=== PATIENT | female | born 1940 | race Caucasian/White ===

== ENCOUNTER 2017-01-02 23:14 | Inpatient (IN) ==
[2017-01-03] MEDS ORDERED: *HR* HYDROmorphone (PF) 1 MG/ML SYRINGE IVP ONE (00:15)
[2017-01-03] MEDS ORDERED: Ondansetron 4 MG/2 ML VIAL IVP ONE (00:15)
--- NOTE | 2017-01-03 01:15 | Emergency Department Note ---
Disposition Clinical Impression: Generalized weakness, Hyponatremia, GEORGES (acute kidney injury) Fall Qualifiers: Encounter type: initial encounter Qualified Code(s): W19.XXXA - Unspecified fall, initial encounter Disposition: Admitted As Inpatient Condition: Fair Time of Disposition: 04:21 General Adult HPI - General Chief complaint: ED Neuro Symptoms/Deficit Stated complaint: clinching mouth, BLE leg pain, "feeling funny" Time Seen by Provider: 01/03/17 00:15 Source: EMS Mode of arrival: EMS Limitations: no limitations Nursing Notes Reviewed: Yes Vital Signs Reviewed: Yes - History of Present Illness HPI Narrative: Patient is a 76-year-old female who presents to [facility] ED with a chief complaint of fall. Son is present with her who states she fell earlier on in the day. She was able to ambulate afterwards but then started complaining of extreme left hip pain. Son states that she seems like she has been gradually more weak over this last several days. States she had been working with physical therapy outpatient and had been able to walk without difficulty last week. Now she has had more and more difficulty. Patient denies any chest pain. She was hyperventilating upon presentation to the emergency department. Was complaining of lots of left hip pain. Patient denies any loss of consciousness. States it was a mechanical fall as she was trying to get out of the bathroom and ran into the door. No loss of consciousness. Onset (ago): hour(s) Location: left, lower extremity Radiation: non-radiation Pain Severity: severe Pain Scale: 10 Quality: aching Consistency: constant Improves with: nothing Worsens with: nothing Associated symptoms: Reports: weakness. Denies: chest pain, cough, fever/chills , loss of appetite, nausea/vomiting, shortness of breath Treatments Prior to Arrival: none - Related Data Allergies Allergy/AdvReac Type Severity Reaction Status Date / Time pioglitazone [From [employer]] Allergy Cough Verified 01/02/17 23:41 All systems ED: reviewed and negative except as stated. Past Medical History - Past Medical History Attestation: Yes The following information was validated with the patient. Source: patient Medical history: Reports: atrial fibrillation, CHF, diabetes, hyperlipidemia, hypertension, myocardial infarction, thyroid disease - Social History Smoking Status: Never smoker Physical Exam - General Limitations: no limitations General appearance: alert - Head Head exam: atraumatic, normocephalic, normal inspection - Eye Eye exam: Present: normal appearance, PERRL, EOMI - ENT ENT exam: normal exam, normal oropharynx, mucous membranes moist - Neck Neck exam: Present: normal inspection, full ROM, trachea midline - Chest Chest inspection: Present: normal inspection, symmetric chest wall rise - Respiratory Respiratory exam: Present: normal lung sounds bilaterally - Cardiovascular Cardiovascular exam: Present: regular rate, normal rhythm, normal heart sounds - Abdominal Exam Abdominal exam: Present: soft, Non-Tender. Absent: tenderness, distention, guarding, rebound, rigidity - Expanded Upper Extremity Exam Forearm/Wrist exam: Present: other (Superficial skin tears on the left forearm) - Expanded Lower Extremity Exam Hip/Pelvis exam: Present: tenderness (L hip) Course Course Narrative: Patient seen and examined. Fall with generalized weakness. CT of the head and CT pelvis ordered. Lab work ordered. - Reevaluation(s) Reevaluation #1: Lab work shows some hyponatremia along with acute kidney injury. Patient's CT head shows chronic occipital lobe infarct. CT pelvis just osteoarthritis. We will admit for generalized weakness, hyponatremia, acute kidney injury. I spoke with hospitalist Dr. Anderson who has accepted patient for admission. Time: 04:19 Vital Signs Temperature 97.5 F L 01/02/17 23:20 Pulse Rate 105 01/02/17 23:20 Respiratory Rate 22 01/02/17 23:20 Blood Pressure 110/52 01/02/17 23:20 O2 Sat by Pulse Oximetry 96 01/02/17 23:20 Temperature 97.5 F L 01/02/17 23:20 Pulse Rate 87 01/03/17 02:22 Respiratory Rate 18 01/03/17 02:22 Blood Pressure 102/71 01/03/17 02:22 O2 Sat by Pulse Oximetry 96 01/03/17 02:22 Oxygen Delivery Oxygen Delivery Room Air Medical Decision Making - Medical Records Medical records reviewed: Yes I reviewed the patient's medical records. - Lab Data Lab results reviewed: Yes I reviewed the patient's lab results. Result diagrams: 01/03/17 01:51 01/03/17 01:51 Lab Results 01/02/17 01/03/17 01/03/17 Range/Units 23:31 01:51 01:51 WBC (4.3-11.1) K/mcL RBC (3.82-4.97) M/mcL Hgb (11.5-15.4) g/dL Hct (35.3-44.9) % MCV (83.0-100.0) fL MCH (28.0-33.3) pg MCHC (31.6-35.5) g/dL RDW (11.5-14.5) % Plt Count (140-400) K/mcL MPV (9.4-12.4) fL Immature Gran % (0-4) % Seg Neutrophils % % Lymphocytes % % Monocytes % % Eosinophils % % Basophils % % Neutrophils # (1.6-8.9) K/mcL Lymphocytes # (0.6-4.6) K/mcL Monocytes # (0.0-1.3) K/mcL Eosinophils # (0.0-0.6) K/mcL Basophils # (0.0-0.2) K/mcL Immature Plt Fraction (1.1-6.1) % Sodium (136-145) mEq/L Potassium (3.5-4.5) mEq/L Chloride (98-109) mEq/L Carbon Dioxide (19-29) mEq/L BUN (7-20) mg/dL Creatinine (0.57-1.11) mg/dL Est GFR ( Amer) (> 60) Est GFR (Non-Af Amer) (> 60) BUN/Creatinine Ratio (6-26) Glucose (70-99) mg/dL POC Glucose 354 H (58-89) Calculated Osmolality (280-300) Lactic Acid 1.6 (0.5-2.2) mmol/L Calcium (8.6-10.8) mg/dL Phosphorus 5.0 H (2.3-4.7) mg/dL Magnesium 2.3 (1.6-2.6) mg/dL Total Bilirubin (0.2-1.2) mg/dL AST (5-34) Units/L ALT (0-55) Units/L Alkaline Phosphatase (38-126) Units/L Creatine Kinase 121 (29-168) Units/L Troponin I (0-0.03) ng/mL Serum Total Protein (6.0-8.3) g/dL Albumin (3.5-5.0) g/dL Globulin (2.4-3.5) g/dL Albumin/Globulin Ratio (1.1-2.2) 01/03/17 01/03/17 01/03/17 Range/Units 01:51 01:51 01:51 WBC 5.6 D (4.3-11.1) K/mcL RBC 4.19 (3.82-4.97) M/mcL Hgb 11.4 L (11.5-15.4) g/dL Hct 34.6 L (35.3-44.9) % MCV 82.6 L (83.0-100.0) fL MCH 27.2 L (28.0-33.3) pg MCHC 32.9 (31.6-35.5) g/dL RDW 16.2 H (11.5-14.5) % Plt Count 216 (140-400) K/mcL MPV 10.2 (9.4-12.4) fL Immature Gran % 0.5 (0-4) % Seg Neutrophils % 80.8 % Lymphocytes % 8.8 % Monocytes % 9.5 % Eosinophils % 0.2 % Basophils % 0.2 % Neutrophils # 4.5 (1.6-8.9) K/mcL Lymphocytes # 0.5 L (0.6-4.6) K/mcL Monocytes # 0.5 (0.0-1.3) K/mcL Eosinophils # 0.0 (0.0-0.6) K/mcL Basophils # 0.0 (0.0-0.2) K/mcL Immature Plt Fraction 4.3 (1.1-6.1) % Sodium 125 L (136-145) mEq/L Potassium 5.3 H (3.5-4.5) mEq/L Chloride 87 L (98-109) mEq/L Carbon Dioxide 24 (19-29) mEq/L BUN 60 H (7-20) mg/dL Creatinine 3.06 H (0.57-1.11) mg/dL Est GFR ( Amer) 18 L (> 60) Est GFR (Non-Af Amer) 15 L (> 60) BUN/Creatinine Ratio 20 (6-26) Glucose 278 H (70-99) mg/dL POC Glucose (58-89) Calculated Osmolality 287 (280-300) Lactic Acid (0.5-2.2) mmol/L Calcium 9.4 (8.6-10.8) mg/dL Phosphorus (2.3-4.7) mg/dL Magnesium (1.6-2.6) mg/dL Total Bilirubin 1.5 H (0.2-1.2) mg/dL AST 90 H (5-34) Units/L ALT 80 H (0-55) Units/L Alkaline Phosphatase 127 H (38-126) Units/L Creatine Kinase (29-168) Units/L Troponin I 0.03 (0-0.03) ng/mL Serum Total Protein 6.2 (6.0-8.3) g/dL Albumin 3.1 L (3.5-5.0) g/dL Globulin 3.1 (2.4-3.5) g/dL Albumin/Globulin Ratio 1.0 L (1.1-2.2) - Radiology Data Radiology results reviewed: Yes I reviewed the patient's radiology results. Head CT 01/03/17 00:26 IMPRESSION: 1. No acute intracranial abnormality. 2. Chronic left cerebellar infarct. 3. Mild left mastoid air cell disease. D/ / Isaias Baugh MD / Isaias Buagh MD Interpreting Provider: Isaias Baugh MD Pelvis CT 01/03/17 00:26 IMPRESSION: 1. No acute fracture or dislocation of the bilateral hips or osseous pelvis. 2. Bilateral hip osteoarthritis, left greater than right. 3. Cholelithiasis. D/ / Isaias Baugh MD / Isaias Baugh MD Interpreting Provider: Isaias Baugh MD Chest X-Ray 01/03/17 01:41 IMPRESSION: No acute abnormality. D/ / Marv Colunga MD / Marv Colunga MD Interpreting Provider: Marv Colunga MD - EKG Data EKG #1 EKG attestation: Yes I reviewed and interpreted this EKG. EKG results narrative: EKG done at 2329 shows atrial fibrillation with a rate of [address] elevation or depression. Left posterior fascicular block. Appears unchanged from prior EKG done 09/09/2014 Attestation Statement - Attestation Attestation: I, Pillo Kaplan MD, personally performed a history and physical exam of the patient and discussed their management with the resident. I reviewed the resident's note and agree with the documented findings, medical decision making , and plan of care. 76-year-old female presents to the emergency department accompanied by her son. Son reports patient fell sometime earlier and since then has been complaining of left hip pain. He also complains that over the last several days she has had increasing generalized weakness and difficulty ambulating. She is apparently fallen several times. He thinks that she did hit her head. She is on Xarelto and Plavix. Patient is very hard of hearing and seems intermittently confused. On examination patient is a well-developed obese elderly female in no acute distress. She is alert. No cyanosis or diaphoresis. Breath sounds are equal bilaterally. Chest is nontender to palpation. Heart is irregularly irregular. Abdomen is soft with normal bowel sounds. No gross focal neurological deficits. 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 Labs reviewed. Head CT negative for acute bleed or traumatic injury. EKG shows atrial fibrillation which is chronic. The hospitalist, Dr. Anderson, was consulted and accepted admission of the patient.
[2017-01-03 01:57] LABS: Basophils % 0.2 %; Eosinophils % 0.2 %; Hematocrit 34.6 % (35.3-44.9); Hemoglobin 11.4 g/dL (11.5-15.4); Immature Granulocytes % 0.5 % (0-4); Immature Platelets 4.3 % (1.1-6.1); Lymphocytes # 0.5 K/mcL (0.6-4.6); Lymphocytes % 8.8 %; Mean Corpuscular HGB Conc 32.9 g/dL (31.6-35.5); Mean Corpuscular Hemoglobin 27.2 pg (28.0-33.3); Mean Corpuscular Volume 82.6 fL (83.0-100.0); Mean Platelet Volume 10.2 fL (9.4-12.4); Monocytes # 0.5 K/mcL (0.0-1.3); Monocytes % 9.5 %; Neutrophils # 4.5 K/mcL (1.6-8.9); Platelet Count 216 K/mcL (140-400); Red Blood Count 4.19 M/mcL (3.82-4.97); Red Cell Distribution Width 16.2 % (11.5-14.5); Segmented Neutrophils % 80.8 %
[2017-01-03 02:10] LABS: Albumin 3.1 g/dL (3.5-5.0); Bilirubin,Total 1.5 mg/dL (0.2-1.2); Calcium 9.4 mg/dL (8.6-10.8); Globulin 3.1 g/dL (2.4-3.5); Magnesium 2.3 mg/dL (1.6-2.6); Potassium 5.3 mEq/L (3.5-4.5); Total Protein 6.2 g/dL (6.0-8.3)
[2017-01-03] MEDS ORDERED: 0.9 % Sodium Chloride 1,000 ML IVC ONE ×2 (03:48→04:40)
--- NOTE | 2017-01-03 04:48 | Internal Med History&Physical ---
Date of Encounter: 01/03/17 Time of Encounter: 04:41 Assessment and Plan (1) GEORGES (acute kidney injury) Current visit: Yes Status: Acute Patient with underlying type 2 diabetes, admitted with acute kidney injury. Patient with underlying CKD. Baseline GFR is around 29-28. Upon admission her GFR is 16. Etiology likely multifactorial, patient with dehydration, poor oral intake who was recently discharged from another facility and has received diuretic therapy. A week ago her potassium level was 3.1. She was receiving potassium as outpatient. Will give IV fluids, monitor input and output. Juarez catheter. Avoid nephrotoxic agents. Hold diuretics for now. We will obtain a consultation with nephrology for further recommendation. The patient follows up as outpatient with Dr. Montiel. (2) Uncontrolled diabetes mellitus Current visit: Yes Status: Acute Uncontrolled diabetes. We will continue with insulin therapy. Hold by mouth medications. Check hemoglobin A1c. Monitor fingerstick. 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 We will give 1 dose of Kayexalate. Monitor electrolytes. Avoid nephrotoxic agents. Telemetry monitoring. (4) Coronary artery disease Current visit: Yes Status: Acute Qualifiers: Coronary Disease-Associated Artery/Lesion type: bypass graft Knik vs. transplanted heart: hoopa heart Associated angina: without angina Qualified Code(s): I25.810 - Atherosclerosis of coronary artery bypass graft(s) without angina pectoris (5) Congestive heart failure Current visit: Yes Status: Acute I could not find documentation about the severity of her heart failure. She follows at [place]. Obtain echo for further evaluation. Qualifiers: Congestive heart failure type: combined Congestive heart failure chronicity : chronic Qualified Code(s): I50.42 - Chronic combined systolic (congestive) and diastolic (congestive) heart failure (6) Atrial fibrillation Current visit: Yes Status: Acute On anticoagulation with xarelto at home. Monitor in telemetry. Rate control meds. Qualifiers: Atrial fibrillation type: chronic Qualified Code(s): I48.2 - Chronic atrial fibrillation (7) Generalized weakness Current visit: Yes Status: Acute PT eval. (8) Hyponatremia Current visit: Yes Status: Acute Internal Medicine - H&P: HPI Chief complaint: Generalized weakness Admitted From: Emergency Dept Plans for Post Hospital Care: Transfer Care Home Facility History of present illness: Ms. Cox is a 76 year old female with past medical history of atrial fibrillation on anticoagulation, type 2 diabetes, hypertension, coronary artery disease status post CABG, hypothyroidism, chronic kidney disease, secondary hyperparathyroidism, status post permanent pacemaker placement, multiple strokes. Patient presented to our emergency department after she sustained a fall. The patient's son states that the patient had a fall yesterday morning. She was complaining of left hip pain and generalized weakness. Patient States the Patient Has Been Feeling Weak in the Last Couple of Days, Has Been Drowsy, Sleeping More Than Usual. Patient Denies Fever, Shortness of Breath, Dysuria, Diarrhea, Loss of Consciousness. She Is Complaining of Productive Cough. Of Note, the Patient Was Hospitalized at [facility], She Was Discharged 2 Weeks Ago. Patient's Admission to [facility] Was due to Fluid Overload, She Had Severe Swelling in Both Lower Extremities and Responded Well to Diuretic Therapy. Upon discharge her diuretic therapy was switched from Lasix to Bumex and she was prescribed potassium. Upon Admission to our Emergency Department Her Blood Pressure Was 110/62, Temperature Was 97.5, Heart Rate Was 105, Respiratory Rate Was 22, A Few Blood Pressure Was 96%. Initial blood work revealed a hemoglobin of 11.4, hematocrit 24.6, WBC count 5.6, platelet count 216,000. Sodium 135, potassium 5.3, chloride 87, carbonate 24, BUNs 60, creatinine 3.06, glucose 278. Troponin was 0.03. Chest x-ray was unremarkable. Head CT was also unremarkable without acute findings. A head heat CT did rule out fractures, however it revealed bilateral arthritis (more in the left). The patient received a dose of IV fluids in the ER along with Zofran and Dilaudid. She was admitted for further management and workup. Past Med Surg Social Fam HX - Past Medical History Medical history: atrial fibrillation, CHF, diabetes, hyperlipidemia, hypertension, myocardial infarction, thyroid disease - Past Surgical History Surgical History: coronary bypass (CABG) - Social History Smoking Status: Never smoker Internal Medicine - H&P: Meds Allergies pioglitazone [From Actos] Allergy (Verified 01/02/17 23:41) Cough All Systems PM: A 10-system review of systems was performed and is negative for pertinent findings except as documented above in the HPI. - Constitutional Constitutional: as per HPI, anorexia, falls, lethargy, malaise, weakness, no chills, no fever(s), no night sweats - EENT Eyes: as per HPI, no change in vision, no discharge, no pain, no photophobia Ears: as per HPI, no ear discharge, no ear pain, no tinnitus Nose, mouth and throat: as per HPI, no dysphagia, no nasal discharge, no neck pain, no sore throat - Breasts Breasts: as per HPI - Cardiovascular Cardiovascular ROS IM: as per HPI, edema, no chest pain, no diaphoresis, no dyspnea, no lightheadedness, no palpitations, no syncope - Respiratory Respiratory: as per HPI, cough, no dyspnea, no wheezing, no excessive phlegm production - Gastrointestinal Gastrointestinal: as per HPI, no abdominal pain, no diarrhea, no hematemesis, no hematochezia, no melena, no nausea, no vomiting - Genitourinary Genitourinary: as per HPI, no change in urinary stream, no dysuria, no flank pain, no hematuria Menstruation: as per HPI - Musculoskeletal Musculoskeletal ROS IM: as per HPI, arthralgias, limited range of motion, no numbness, no tingling - Integumentary Integumentary IM: as per HPI, no rash, no unusual bruising - Neurological Neurological ROS: as per HPI, no confusion, no convulsions, no focal weakness, no numbness, no tingling, no tremor(s) - Psychiatric Psychiatric: as per HPI - Endocrine Endocrine IM: as per HPI - Hematologic/Lymphatic Hematologic/Lymphatic: as per HPI, no easy bruising - Allergic/Immunologic Allergic/Immunologic: as per HPI - Constitutional Vitals: Temp Pulse Resp BP Pulse Ox 97.5 F L 100 18 128/90 97 01/02/17 23:20 01/03/17 04:38 01/03/17 04:38 01/03/17 04:38 01/03/17 04:38 General appearance: Present: cooperative, A&O X 2, mild distress Exam: Obese patient, dry mucous membranes, breathing with a nasal cannula, excoriation in the left wrist - Head Head exam: Present: atraumatic, normocephalic - Eye Eye exam: Present: PERRL, conjuntiva pink, sclera anicteric Pupils: Present: PERRL - Neck Neck exam general surgery: Present: supple, trachea midline. Absent: lymphadenopathy - Respiratory Respiratory exam: Present: decreased breath sounds. Absent: accessory muscle use, rales, rhonchi, wheezes - Cardiovascular Cardiovascular exam: Present: RRR, +S1, +S2. Absent: diastolic murmur, gallop, rubs, systolic murmur - GI/Abdominal GI/Abdominal exam: Present: normal bowel sounds, soft, no peritoneal signs. Absent: distended, tenderness - Extremities Exam Extremities exam: Present: pedal edema, warm, radial pulses palpable and symetrical. Absent: calf tenderness, cyanotic - Neurological Exam Neurological exam: Present: CN II-XII intact, oriented X3, no focal deficits. Absent: pronater drift, facial droop, speech deficit - Skin Skin exam: Present: dry, intact Internal Med - H&P Results - Labs CBC & Chem 7: 01/03/17 01:51 01/03/17 01:51
[2017-01-03] MEDS ORDERED: D5% in Water 1,000 ML IVC PRN (05:05)
[2017-01-03] MEDS ORDERED: Ondansetron 4 MG/2 ML VIAL IVP PRN (05:05)
[2017-01-03] MEDS ORDERED: Naloxone 0.4 MG/ML INJ IVP PRN (05:05)
[2017-01-03] MEDS ORDERED: Acetaminophen 325 MG TABLET PO PRN (05:05)
[2017-01-03] MEDS ORDERED: Dextrose Gel 15 GM PO PRN ×2 (05:05)
[2017-01-03 05:53] LABS: Hemoglobin A1C 8.6 %
[2017-01-03 09:33] LABS: Bilirubin,Urine Small (Negative); Blood,Urine Negative (Negative); Clarity,Urine Clear (Clear); Color,Urine Dark Yellow (Yellow); Glucose,Urine (UA) Normal (Normal); Ketones,Urine Negative (Negative); Leukocyte Esterase,Urine Small (Negative); Nitrite,Urine Negative (Negative); Protein,Urine Trace mg/dL (Neg-Trace); Specific Gravity,Urine 1.016 (1.010-1.025); Urobilinogen,Urine Normal (Normal)
[2017-01-03 09:35] LABS: Bacteria,Urine None Seen per hpf (None-Few); RBC,Urine 0-3 per hpf (0-3); Squamous Epithelial Cell,Urine Many per lpf (None-Few)
[2017-01-03 09:40] LABS: Amphetamine Screen,Urine Negative ng/mL (Cutoff=1000); Barbiturate Screen,Urine Negative ng/mL (Cutoff=200); Benzodiazepines Screen,Urine Negative ng/mL (Cutoff=200); Cannabinoid Screen,Urine Negative ng/mL (Cutoff = 50); Cocaine Screen,Urine Negative ng/mL (Cutoff= 300); Creatinine,Urine 69 mg/dL; Microalbum/Creatinine Ratio,Ur 72 (0-30); Microalbumin,Urine 50 mg/L; Opiate Screen,Urine Negative ng/mL (Cutoff=300); Phencyclidine Screen,Urine Negative ng/mL (Cutoff=25)
[2017-01-03 09:41] LABS: Sodium, Urine < 20.0 mEq/L
[2017-01-03] MEDS: Ranolazine 500 MG TAB.ER.12H PO SCH ×2 (09:42→20:46)
[2017-01-03] MEDS: Isosorbide MONOnitrate (24 HR) 30 MG TAB.ER.24H PO SCH (09:43)
[2017-01-03] MEDS: 0.9 % Sodium Chloride 1,000 ML IVC SCH (09:43)
[2017-01-03 09:50] LABS: Hepatitis B Surface Antigen Nonreactive (Nonreactive)
[2017-01-03] MEDS: Insulin LISPRO 300 UNITS/3 ML VIAL SQ SCH ×4 (09:51→20:44)
[2017-01-03 09:53] LABS: Hyaline Casts,Urine Few per lpf (None-Few)
[2017-01-03] MEDS: *HR* Morphine 2 MG/ML SYRINGE IVP PRN (10:58)
[2017-01-03 11:03] LABS: Osmolality,Urine 322 mOsm/kg (300-1090)
--- NOTE | 2017-01-03 11:32 | Nephrology Consult Note ---
<Arianne Oconnor - Last Filed: 01/03/17 12:39> Date of Encounter: 01/03/17 Time of Encounter: 11:25 Assessment and Plan (1) GEORGES (acute kidney injury) Current Visit: Yes Status: Acute GEORGES workup will include: UA, urine culture, urine creatinine, serum uric acid, renal ultrasound. Agree with IV fluid hydration Agree with holding diuretics Avoid nephrotoxins if possible. 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 Cox is a 76 year old female with past medical history of atrial fibrillation on anticoagulation, type 2 diabetes, hypertension, coronary artery disease status post CABG, hypothyroidism, chronic kidney disease, secondary hyperparathyroidism, status post permanent pacemaker placement, multiple strokes. Patient presented to our emergency department after she sustained a fall. She was complaining of left hip pain and generalized weakness. Patient States the Patient Has Been Feeling Weak in the Last Couple of Days, Has Been Drowsy, Sleeping More Than Usual. Patient was discharged from [facility] weeks ago for fluid overload and severe swelling in BLL which responded well to diuretic therapy. Upon discharge her diuretic therapy was switched from Lasix to Bumex and she was prescribed potassium. Chest x-ray was unremarkable. Diuretic and K+ supplement has been held. Speaking with the adult children they states she was unaware of any kidney disease nor has she ever seen a kidney doctor. When patient returns from having echo she tells me she was suppose to see a Dr David next week for her kidney disease. Patient's mother had some type of kidney problem but details are unknown. Nephrology has been consulted to manage her GEORGES on CKD stage 4. Review of old labs show a baseline GFR of 28-29. Past Med Surg Social Fam HX - Past Medical History Medical history: atrial fibrillation, CHF, diabetes, hyperlipidemia, hypertension, myocardial infarction, thyroid disease Psychiatric history: no psych history - Past Surgical History Surgical History: angioplasty/stent, coronary bypass (CABG), pacemaker/AICD - Social History Smoking Status: Never smoker Smokeless Tobacco Status: No Alcohol use: none Drug use: none - Family History Mother Hx Family Endocrine Disorder: Yes (DIABETES MELLITUS.) Medications and Allergies Bumetanide [Bumex] 1 mg PO BID 01/03/17 [History] Calcitriol [Rocaltrol] 0.25 mcg PO DAILY 01/03/17 [History] Carvedilol [Coreg] 25 mg PO BID 01/03/17 [History] Clopidogrel [Plavix] 75 mg PO DAILY 01/03/17 [History] Furosemide [Lasix] 40 mg PO BID 01/03/17 [History] Glimepiride [Amaryl] 2 mg PO 0800 01/03/17 [History] Insulin ASPART [Novolog] 1 unit SQ QID 01/03/17 [History] Isosorbide MONOnitrate [Isosorbide Mononitrate] 30 mg PO DAILY 01/03/17 [History ] Levothyroxine [Synthroid] 125 mcg PO DAILY 01/03/17 [History] Losartan Potassium [Cozaar] 50 mg PO DAILY 01/03/17 [History] Nitroglycerin [Nitrostat] 0.4 mg SL PRN PRN 01/03/17 [History] Potassium Chloride [Klor-Con] 25 meq PO BID 01/03/17 [History] Ranolazine [Ranexa] 1,000 mg PO BID 01/03/17 [History] Rivaroxaban [Xarelto] 15 mg PO DAILY 01/03/17 [History] Rosuvastatin [Crestor] 20 mg PO DAILY 01/03/17 [History] Allergies pioglitazone [From Actos] Allergy (Verified 01/03/17 08:16) Cough Review of Systems All Systems: reviewed and no additional remarkable complaints except as stated Constitutional: fatigue, lethargy, malaise, no fever(s) Cardiovascular: edema, leg edema, no chest pain, no dyspnea Respiratory: no cough, no dyspnea Gastrointestinal: no diarrhea, no nausea, no vomiting Musculoskeletal: left: hip pain Neurological: weakness, no behavioral changes Exam - Vital Signs Vital signs: Initial Vital Signs Temp Pulse Resp BP Pulse Ox 97.5 F L 105 22 110/52 96 01/02/17 23:20 01/02/17 23:20 01/02/17 23:20 01/02/17 23:20 01/02/17 23:20 Vital Signs - Last 8 Hours Temp Pulse Resp BP Pulse Ox 01/03/17 06:12 96.1 F L 98 16 100/64 100 01/03/17 04:53 18 128/90 01/03/17 04:38 100 18 128/90 97 Intake and Output 01/02/17 01/03/17 01/03/17 23:59 07:59 15:59 Intake Total 1000 / 1000 Output Total 300 / 300 Balance 1000 / 1000 -300 / -300 Intake: IV Fluids 1000 / 1000 0.9 % Sodium Chloride 1, 1000 / 1000 000 ML @ 3750 mls/hr IVC .Q16M ONE Rx#:[id number] Output: Urine 300 / 300 Urethral (Juarez) 300 / 300 Other: Blood Glucose* 289 - General Appearance General appearance: well-developed, well-nourished, obese EENT: ATNC, mucous membranes moist, vision intact Neck: supple Respiratory: clear (decreased) Cardiology: edema, normal S1, normal S2 Gastrointestinal: no tenderness, no guarding, obese Integumentary: warm and dry Neurologic: alert and oriented x3 Psychiatric: mood/affect appropriate, cooperative Results - Lab Results 01/03/17 01:51 01/03/17 01:51 Most recent lab results Calcium 9.4 mg/dL (8.6-10.8) 01/03/17 01:51 Phosphorus 5.0 mg/dL (2.3-4.7) H 01/03/17 01:51 Magnesium 2.3 mg/dL (1.6-2.6) 01/03/17 01:51 Urine Creatinine 69 mg/dL 01/03/17 09:12 Urine Sodium < 20.0 mEq/L 01/03/17 09:12 Consult Discharge Plan - Plan Referrals: Gianna Rendon, CHARLINE [Primary Care Provider] - 01/11/17 1:30 pm () <Haley Youssef - Last Filed: 01/03/17 16:26> Date of Encounter: 01/03/17 Exam - Vital Signs Vital signs: Initial Vital Signs Temp Pulse Resp BP Pulse Ox 97.5 F L 105 22 110/52 96 01/02/17 23:20 01/02/17 23:20 01/02/17 23:20 01/02/17 23:20 01/02/17 23:20 Vital Signs - Last 8 Hours Temp Pulse Resp BP Pulse Ox 01/03/17 15:19 97.9 F 99 17 101/70 99 01/03/17 12:39 97.6 F 88 18 92/55 97 Intake and Output 01/03/17 01/03/17 01/03/17 07:59 15:59 23:59 Intake Total 1000 / 1000 240 / 240 Output Total 300 / 300 Balance 1000 / 1000 -60 / -60 Intake: IV Fluids 1000 / 1000 0.9 % Sodium Chloride 1, 1000 / 1000 000 ML @ 3750 mls/hr IVC .Q16M ONE Rx#:[id number] Oral 240 / 240 Output: Urine 300 / 300 Urethral (Juarez) 300 / 300 Other: Meal Lunch Percent of Meal Consumed 50% Blood Glucose* 213 Results - Lab Results 01/03/17 01:51 01/03/17 01:51 Most recent lab results Calcium 9.4 mg/dL (8.6-10.8) 01/03/17 01:51 Phosphorus 5.0 mg/dL (2.3-4.7) H 01/03/17 01:51 Magnesium 2.3 mg/dL (1.6-2.6) 01/03/17 01:51 Urine Creatinine 69 mg/dL 01/03/17 09:12 Urine Sodium < 20.0 mEq/L 01/03/17 09:12 - Attending Attestation I examined this patient and my medical decision-making was reviewed with the FARM OPERATOR/PA/Advanced Practice Nurse/Resident Physician. I agree with the documented findings, disposition and treatment plan as described except to the extent set forth below. In brief, 76 y o female with pMH of Stage 4 CKD admitted with nausea and vomiting while on diuretics and found with SCr worsening at 3.06, GFR 15, previously 1.82, GFR 27 as of the of this month. Potassium noted elevated along with low sodium. Agree with volume repletion and will initiate workup regarding both GEORGES and CKD with US kidney, urine for proteinuria etc. Avoid nephrotoxins if possible. 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
--- NOTE | 2017-01-03 12:56 | Internal Med Progress Note ---
Date of Encounter: 01/03/17 Time of Encounter: 09:00 - Assessment and plan (1) Fall Current Visit: Yes Status: Acute Assessment and plan: Patient had mechanical fall at home last night. She says that she tripped coming out of her bathroom. She says that she hit her foot on the door frame causing her to fall. Her son says that she has physical therapy at home, and is to use a walker. Patient carries a walker while she is walking instead of using it properly. Patient reports hip pain after fall. The pain is not new. She has had chronic hip pain "for years" per her son, and he states that ambulation has become increasingly difficult for her over the last week or so. Patient had a head CT scan is negative for any intracranial abnormality. 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 Her hip x-rays bilaterally are negative for fracture or dislocation. She does have osteoarthritis however in both hips. Family is aware of this. Pain control PT/OT Ambulate with assistance Fall precautions Qualifiers: Encounter type: initial encounter Qualified Code(s): W19.XXXA - Unspecified fall, initial encounter (2) Hyponatremia Current Visit: Yes Status: Acute Assessment and plan: Patient has history of hyponatremia per prior trends. Initially sodium was 125. Patient is receiving IV fluids. We will continue to monitor. This could be contributory to fall and weakness. Monitor labs Monitor patient IV fluids 0.9 normal saline gentle hydration at 75 ML's per hour (3) Hyperkalemia Current Visit: Yes Status: Acute Assessment and plan: Potassium today is 5.3. She has a history of hyperkalemia. We are also monitoring the sodium. We will continue to monitor. (4) Uncontrolled diabetes mellitus Current Visit: Yes Status: Acute Assessment and plan: A1c is 8.6%, patient is hyperglycemic since admission. 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 fib. Severely dilated right and left atria. Patient denies cough. Her lung sounds are diminished. She has minimal edema to bilateral lower extremities. Continue her home medications and monitor her throughout her stay. She normally follows at [facility] needs. Qualifiers: Congestive heart failure type: combined Congestive heart failure chronicity : chronic Qualified Code(s): I50.42 - Chronic combined systolic (congestive) and diastolic (congestive) heart failure (6) Atrial fibrillation Current Visit: Yes Status: Chronic Assessment and plan: Patient is on Xarelto at home. Continue. Telemetry Rate controlled and will continue to monitor. Qualifiers: Atrial fibrillation type: chronic Qualified Code(s): I48.2 - Chronic atrial fibrillation (7) CKD (chronic kidney disease), stage IV Current Visit: Yes Status: Acute Assessment and plan: Pt and daughter both deny knowledge of renal disease. She has been seen by nephrology here. Pt also has GEORGES on chronic renal. Pt is baseline GFR of 23-29, 15 today with creatinine of 3.06. Nephrology on board Avoid nephrotoxins Avoid NSAIDS Monitor labs. - Time Spent With Patient 25 - 35 minutes (I have been into the room several times at the request of multiple family members.) - Subjective Interval history: Patient was evaluated this morning. She has multiple family members in her room. Daughter states that patient has called all of her children in. When I saw the patient this morning she denied any pain and was resting comfortably. She denied pain in either of her hips. She denies abdominal pain, nausea, vomiting. She denies headache. She says that she fell at home tripped over her doorway, and fell in her hallway. She still maintains that she was not dizzy and did not have chest pain at the time of the fall. Patient and family all deny knowledge of any renal disease, she has been evaluated by nephrology. Pt has been getting PT at home, and son who lives with her states that she has been declining over the last few days. Will continue PT here. Daughter initially refused to have social work specialist on board for home health, she says she will do it all. Her son, who is also her POA, says that they would welcome the help during the days. - Constitutional Vitals: Temp Pulse Resp BP Pulse Ox 97.6 F 88 18 92/55 97 01/03/17 12:39 01/03/17 12:39 01/03/17 12:39 01/03/17 12:39 01/03/17 12:39 General appearance: Present: cooperative, A&O X 3, pleasant, answers questions appropriately Exam: Patient is hard of hearing - Head Head exam: Present: normal inspection - Eye Eye exam: Present: normal appearance, conjuntiva pink - ENT ENT exam: Present: mucous membranes moist, normal exam - Neck Neck exam general surgery: Present: normal inspection. Absent: lymphadenopathy , tenderness - Respiratory Respiratory exam: Present: CTAB. Absent: chest wall tenderness, decreased breath sounds, respiratory distress, rhonchi, stridor, wheezes, tachypnea - Cardiovascular Cardiovascular exam: Present: RRR, +S1, +S2. Absent: diastolic murmur, systolic murmur - GI/Abdominal GI/Abdominal exam: Present: normal bowel sounds, soft. Absent: hepatomegaly, tenderness - Extremities Exam Extremities exam: Present: normal capillary refill, normal inspection, warm, radial pulses palpable and symetrical. Absent: mottling, pedal edema, tenderness Internal Medicine: Result - Labs CBC & Chem 7: 01/03/17 01:51 01/03/17 01:51 Labs: Urine 01/03/17 Range/Units 09:12 Urine Color Dark Yellow (Yellow) Urine Clarity Clear (Clear) Urine pH 6.0 (5.0-8.0) pH Units Ur Specific [place] 1.016 (1.010-1.025) Urine Protein Trace (Neg-Trace) mg/dL Urine Glucose (UA) Normal (Normal) mg/dL Consult Discharge Plan - Plan Referrals: Gianna Rendon, TONGUE AND GROOVE MACHINE OPERATOR [Primary Care Provider] - (We have requested a follow up appointment with Gianna Rendon. The office will call you at home with an appointment date and time. )
--- NOTE | 2017-01-03 12:57 | ECHO - Doppler Report ---
Echocardiogram Name: Angelina Cox Date of Study: 01/03/2017 Date: 1940 Ht: 62.0 in Medical Record#: [id number] Age: 76 Wt: 205.0 lb Gender: Female BSA: 1.93 Order #: [id number] Location: [facility] Room #: 3B13 Reading Physician: Sukh Rojas MD, [facility] [employer] Scientific Aid: Jose Guadalupe Cox RN Ordering Physician: Estuardo Miller MD Primary Physician: Gianna Rendon CNP Indications: LVF Assessment Impressions: Moderately dilated left ventricle. Severe LV systolic dysfunction, LVEF 25-30%. There is global LV hypokinesis. Indeterminate diastolic function due to atrial fibrillation. Mildly dilated right ventricle with mild RV hypokinesis. A device lead was visualized in the right atrium and right ventricle. Severely dilated left atrium. Severely dilated right atrium. Mild aortic regurgitation. Mildly calcified mitral valve leaflets. There is restricted motion of the posterior mitral valve leaflet. Severe mitral regurgitation. Mild tricuspid regurgitation. Mild pulmonary hypertension. Estimated RVSP = 44 mmHg. Recommend cardiology consultation. Left Ventricular Wall Motion: Rest Echo Findings The apex, apical inferior, mid inferior, basal inferior, apical anterior, mid anterior, basal anterior, apical septal, mid inferior septal, basal inferior septal, apical lateral, mid anterior lateral, basal anterior lateral, mid anterior septal, mid inferior lateral, basal anterior septal and basal inferior lateral caban were hypokinetic. Findings: Study Quality * Technically adequate exam. ECG Findings * Atrial fibrillation. Left Ventricle * Moderately dilated left ventricle. * Severe LV systolic dysfunction, LVEF 25-30%. There is global LV hypokinesis. * Normal LV chamber size and wall thickness. * Indeterminate diastolic function due to atrial fibrillation. Right Ventricle * Mildly dilated right ventricle with mild RV hypokinesis. Device lead * A device lead was visualized in the right atrium and right ventricle. Left Atrium * Severely dilated left atrium. Right Atrium * Severely dilated right atrium. Aorta * Normally sized aortic root. Pericardium * There is no pericardial effusion present. IVC * The IVC is dilated. * < 50% respiratory change. Aortic Valve * Trileaflet aortic valve with moderately thickened/calcified leaflets. * No aortic stenosis. * Mild aortic regurgitation. Mitral Valve * Mildly calcified mitral valve leaflets. There is restricted motion of the posterior mitral valve leaflet. * No mitral stenosis. * Severe mitral regurgitation. Tricuspid Valve * Normal tricuspid valve structure. * No tricuspid stenosis. * Mild tricuspid regurgitation. * Mild pulmonary hypertension. Estimated RVSP = 44 mmHg. Pulmonic Valve * Pulmonic valve not well visualized. * No pulmonic stenosis. * No pulmonic regurgitation. History Hypertension Diabetes Hypercholesteremia Family History of CAD History of CAD/PTCA Coronary Artery Bypass Graft Congestive Heart Failure Pacer/ICD Implant 08/26/2014 a Previous Echo was performed. Measurements: BP: 100/ 64 2D Normal Values IVSd: .90 cm 0.6 - 1.0 cm LVIDd: 5.80 cm 3.7 - 5.6 cm LVPWd: 1.00 cm 0.6 - 1.1 cm LVIDs: 5.10 cm 1.5 - 3.6 cm AO: 3.30 cm < 4.0 cm %FS: 15.10 cm >25 % LA volume: 146 Mitral Valve Peak E:1.10 m/sec Peak E' Lat Robby:8.38 cm/s Peak E' Med Robby:3.8 cm/s E/E' Lat Ratio:13.1 E/E' Med Ratio:28.9 Tricuspid Valve TV Regurg Peak Grad: 29.00mmHg TV Regurg Peak Robby: 2.70m/sec Updated by Sukh Rojas MD, [facility] on 01/03/2017 12:51:51 PM electronically signed on 01/03/2017 12:52:46 PM with status of Final Wall Motion Ni: 1=Normal, 2=Hypokinesis, 3=Akinesis, 4=Dyskinesis, 5=Aneurysmal, 6=Hyperkinetic, X=Not Visualized (Blank)=Missing
--- NOTE | 2017-01-03 14:07 | Cardiology Consult Note ---
<Urban Lara R - Last Filed: 01/03/17 14:20> Date of Encounter: 01/03/17 Time of Encounter: 13:56 Assessment and Plan (1) Severe mitral regurgitation Current Visit: Yes Status: Acute Echo obtained during this admission shows moderately dilated LV, severe LV systolic dysfunction EF 25-30%, global LV hypokinesis. Mildly dilated RV with mild RV hypokinesis. Severely dilated left and right atrium. Mild AR, mildly calcified MV leaflets. Restricted motion of posterior MV leaflet. Severe MR. Mild TR, mild phtn. RVSP 44mmHg. MR ischemic appearing in nature. Known severe CAD with only 1/5 patent bypass grafts. Most recent LHC at [facility] was 12/2014. They were unable to cross GEOPHYSICAL DRAFTER of RCA. Currently with GEORGES. Near euvolemic on exam. Would recommend rechecking echo after GEORGES resolves/improves. If still severe MR, would recommend repeat LHC to see if there is any intervention that could be done to improve MR. Do not recommend proceeding with LHC at this time due to GEORGES with risk of contrast induced nephropathy requiring dialysis. Pt and family agree to this. They also wish to have any necessary invasive cardiac procedures done at [facility] with established security test engineer Dr. Gipson. Pt denies chest pain or dyspnea. Cardiology will sign off. Reconsult PRN. Recommend follow-up with Dr. Gipson in 1- 2 weeks after discharge. (2) Ischemic cardiomyopathy Current Visit: Yes Status: Acute EF known 25-30% with significant CAD 1/5 patent bypass grafts. EF has persistently been <35% for years despite being on BB and ARB. ARB currently on hold due to GEORGES on CKD. Would recommend consideration of upgrading device to ICD. Defer to established security test engineer Dr. Gipson. (3) Coronary artery disease Current Visit: Yes Status: Chronic Plavix, BB, Statin. No ASA because she is usually on Plavix and on Xarelto for A -Fib. Qualifiers: Coronary Disease-Associated Artery/Lesion type: bypass graft [place] vs. transplanted heart: [place] heart Associated angina: without angina Qualified Code(s): I25.810 - Atherosclerosis of coronary artery bypass graft(s) without angina pectoris (4) Congestive heart failure Current Visit: Yes Status: Chronic Known EF 25-30%. No fluid overload on exam. CXR negative. Holding diuretics in setting of GEORGES from suspected dehydration and diuretic use. Cautious IV hydration with close assessment to avoid fluid volume overload with known reduced EF. Qualifiers: Congestive heart failure type: combined Congestive heart failure chronicity : chronic Qualified Code(s): I50.42 - Chronic combined systolic (congestive) and diastolic (congestive) heart failure (5) Atrial fibrillation Current Visit: Yes Status: Chronic Rate controlled on BB--24 hour tele AVG HR 98. Previously anticoagulated on Xarelto. Currently on hold due to GEORGES with creatinine 3.06. Baseline creatinine 1.3-1.8, mid range of her usual creatinine clearance is 46. Current creatinine clearance 22. If renal function improves/returns to baseline, okay to resume Xarelto. If Creatinine clearance remains <30, would recommend Coumadin for anticoagulation. Start DVT prophylaxis SQ heparin. Qualifiers: Atrial fibrillation type: chronic Qualified Code(s): I48.2 - Chronic atrial fibrillation Discussion w patient/family: The assessment and plan as outlined above was discussed with the patient and/or family members who expressed understanding and agreement. All questions were answered. Thank you for involving us in the care of your patient. Please call with any questions. I will discuss all the above with Dr. Mitchell and make changes as necessary. History of Present Illness Consult date: 01/03/17 Requesting physician: Luciana Mccarthy Consult reason: Severe MR Chief complaint: Falls, fatigue History of present illness: Ms. Cox is a 76 year old female with PMH of atrial fibrillation on Xarelto , type 2 diabetes, hypertension, coronary artery disease status post CABG with only 1/5 patent bypass grafts on [facility] in 2013, hypothyroidism, chronic kidney disease, secondary hyperparathyroidism, status post permanent pacemaker placement for bradycardia, multiple strokes, systolic CHF EF 25-30%, ICMP. Patient presented to our emergency department after she sustained a fall. The patient's son states that the patient had a fall yesterday morning. She was complaining of left hip pain and generalized weakness. Patient had been feeling weak and drowsy. Denies loss of consciousness. Reports recently being discharged from [facility] 2 weeks ago for CHF exacerbation/fluid overload. Reportedly Lasix was switched to Bumex, but per son, Bumex was making the pt gag , so she had switched back to Lasix at one of the BID doses. Denies chest pain or dyspnea or any worsening lower extremity edema. They follow with Dr. Gipson at [facility] as her security test engineer. Pt found to hae GEORGES, creatinine 3.06 (Baseline 1.3- 1.8). Echo obtained during this admission shows moderately dilated LV, severe LV systolic dysfunction EF 25-30%, global LV hypokinesis. Mildly dilated RV with mild RV hypokinesis. Severely dilated left and right atrium. Mild AR, mildly calcified MV leaflets. Restricted motion of posterior MV leaflet. Severe MR. Mild TR, mild phtn. RVSP 44mmHg. Past Med Surg Social Fam HX - Past Medical History Medical history: atrial fibrillation, cardiomyopathy, CHF, coronary artery disease, CVA, diabetes, hyperlipidemia, hypertension, myocardial infarction, renal disease, thyroid disease Psychiatric history: no psych history - Past Surgical History Surgical History: angioplasty/stent, coronary bypass (CABG), pacemaker/AICD - Social History Smoking Status: Never smoker Smokeless Tobacco Status: No Alcohol use: none Drug use: none - Family History Mother Hx Family Endocrine Disorder: Yes (DIABETES MELLITUS.) Medications and Allergies Bumetanide [Bumex] 1 mg PO BID 01/03/17 [History] Calcitriol [Rocaltrol] 0.25 mcg PO DAILY 01/03/17 [History] Carvedilol [Coreg] 25 mg PO BID 01/03/17 [History] Clopidogrel [Plavix] 75 mg PO DAILY 01/03/17 [History] Furosemide [Lasix] 40 mg PO BID 01/03/17 [History] Glimepiride [Amaryl] 2 mg PO 0800 01/03/17 [History] Insulin ASPART [Novolog] 1 unit SQ QID 01/03/17 [History] Isosorbide MONOnitrate [Isosorbide Mononitrate] 30 mg PO DAILY 01/03/17 [History ] Levothyroxine [Synthroid] 125 mcg PO DAILY 01/03/17 [History] Losartan Potassium [Cozaar] 50 mg PO DAILY 01/03/17 [History] Nitroglycerin [Nitrostat] 0.4 mg SL PRN PRN 01/03/17 [History] Potassium Chloride [Klor-Con] 25 meq PO BID 01/03/17 [History] Ranolazine [Ranexa] 1,000 mg PO BID 01/03/17 [History] Rivaroxaban [Xarelto] 15 mg PO DAILY 01/03/17 [History] Rosuvastatin [Crestor] 20 mg PO DAILY 01/03/17 [History] Allergies pioglitazone [From Actos] Allergy (Verified 01/03/17 08:16) Cough All Systems Review: A 10-system review of systems was performed and is negative for pertinent findings except as documented above in the HPI. - Constitutional Constitutional: fatigue, frequent falls, weakness Physical Examination Vital Signs, Last 4 Hours Temp Pulse Resp BP Pulse Ox 01/03/17 12:39 97.6 F 88 18 92/55 97 Vital Signs Temp Pulse Resp BP Pulse Ox 01/03/17 12:39 97.6 F 88 18 92/55 97 01/03/17 06:12 96.1 F L 98 16 100/64 100 01/03/17 04:53 18 128/90 01/03/17 04:38 100 18 128/90 97 01/03/17 02:22 87 18 102/71 96 01/03/17 01:38 87 18 101/78 95 01/03/17 00:31 93 22 107/80 94 L 01/02/17 23:20 97.5 F L 105 22 110/52 96 Intake and Output 01/02/17 01/03/17 01/03/17 23:59 07:59 15:59 Intake Total 1000 / 1000 240 / 240 Output Total 300 / 300 Balance 1000 / 1000 -60 / -60 Intake: IV Fluids 1000 / 1000 0.9 % Sodium Chloride 1, 1000 / 1000 000 ML @ 3750 mls/hr IVC .Q16M ONE Rx#:[id number] Oral 240 / 240 Output: Urine 300 / 300 Urethral ([place]) 300 / 300 Other: Meal Lunch Percent of Meal Consumed 50% Weight 92.986 kg Blood Glucose* 354 213 General: No Apparent Distress, Other (lethargic) HEENT: Atraumatic, Normocephaly, Mucus Membranes Moist Neck: No JVD, Normal carotid pulses Cardiac: Other (irregularly irregular, murmur noted) Lungs: Other (diminished) Neuro: No focal deficits noted Abdomen: Soft, Non-Tender Skin: No rashes noted on visualized skin Musculoskeletal: No Chest Wall Tenderness Extremities: No Clubbing, No Cyanosis, No Edema, Normal Pulses Results 01/03/17 01:51 01/03/17 01:51 Short CBC 01/03/17 Range/Units 01:51 WBC 5.6 D (4.3-11.1) K/mcL Hgb 11.4 L (11.5-15.4) g/dL Hct 34.6 L (35.3-44.9) % Plt Count 216 (140-400) K/mcL Neutrophils # 4.5 (1.6-8.9) K/mcL BMP 01/03/17 Range/Units 01:51 Sodium 125 L (136-145) mEq/L Potassium 5.3 H (3.5-4.5) mEq/L Chloride 87 L (98-109) mEq/L Carbon Dioxide 24 (19-29) mEq/L BUN 60 H (7-20) mg/dL Creatinine 3.06 H (0.57-1.11) mg/dL Glucose 278 H (70-99) mg/dL Calcium 9.4 (8.6-10.8) mg/dL Cardiac Enzymes 01/03/17 Range/Units 01:51 Troponin I 0.03 (0-0.03) ng/mL Liver Function 01/03/17 Range/Units 01:51 Total Bilirubin 1.5 H (0.2-1.2) mg/dL AST 90 H (5-34) Units/L ALT 80 H (0-55) Units/L Alkaline Phosphatase 127 H (38-126) Units/L Albumin 3.1 L (3.5-5.0) g/dL Urine 01/03/17 Range/Units 09:12 Urine Color Dark Yellow (Yellow) Urine Clarity Clear (Clear) Urine pH 6.0 (5.0-8.0) pH Units Ur Specific [place] 1.016 (1.010-1.025) Urine Protein Trace (Neg-Trace) mg/dL Urine Glucose (UA) Normal (Normal) mg/dL Impressions Head CT 01/03/17 00:26 IMPRESSION: 1. No acute intracranial abnormality. 2. Chronic left cerebellar infarct. 3. Mild left mastoid air cell disease. D/ / Isaias Baugh MD / Isaias Baugh MD Interpreting Provider: Isaias Baugh MD Pelvis CT 01/03/17 00:26 IMPRESSION: 1. No acute fracture or dislocation of the bilateral hips or osseous pelvis. 2. Bilateral hip osteoarthritis, left greater than right. 3. Cholelithiasis. D/ / Isaias Baugh MD / Isaias Baugh MD Interpreting Provider: Isaias Baugh MD Chest X-Ray 01/03/17 01:41 IMPRESSION: No acute abnormality. D/ / Marv Colunga MD / Marv Colunga MD Interpreting Provider: Marv Colunga MD Active Medications Acetaminophen (Tylenol) 650 mg PO Q6HR PRN PRN Reason: Mild Pain (1-3) Stop: 07/05/17 05:06 Carvedilol (Coreg) 25 mg PO BID RORY PRN Reason: Protocol Stop: 07/05/17 09:01 Last Admin: 01/03/17 09:42 Dose: 25 mg Clopidogrel Bisulfate (Plavix) 75 mg PO DAILY [facility] Stop: 07/05/17 09:01 Last Admin: 01/03/17 09:43 Dose: 75 mg Dextrose/Water (Dextrose 50% (Syg)) 25 ml IVP AD PRN PRN Reason: Hypoglycemia Stop: 07/05/17 05:06 Glucagon (Glucagen) 1 mg IM ONCE PRN PRN Reason: Hypoglycemia Stop: 07/05/17 05:06 Glucose (Gluctose) 15 gm PO ONCE PRN PRN Reason: Hypoglycemia Stop: 07/05/17 05:06 Glucose (Gluctose) 30 gm PO ONCE PRN PRN Reason: Hypoglycemia Stop: 07/05/17 05:06 Sodium Chloride (0.9 % Sodium Chloride) 1,000 mls @ 100 mls/hr IVC .Q10H RORY Stop: 01/04/17 01:14 Last Admin: 01/03/17 09:43 Dose: 100 mls/hr Dextrose (Dextrose 5%) 1,000 mls @ 100 mls/hr IVC .Q10H PRN PRN Reason: HYPOGLYCEMIA Stop: 07/05/17 05:06 Insulin Detemir (Levemir) 24 unit 0.25 unit/kg (24 unit) SQ HS [facility] Stop: 07/05/17 21:01 Insulin Human Lispro (Humalog) 0 units SQ HS [facility] PRN Reason: Protocol Stop: 07/05/17 21:01 Insulin Human Lispro (Humalog) 0 units SQ TIDAC RORY PRN Reason: Protocol Stop: 07/05/17 07:31 Last Admin: 01/03/17 12:48 Dose: 4 units Isosorbide Mononitrate (Imdur) 30 mg PO DAILY [facility] Stop: 07/05/17 09:01 Last Admin: 01/03/17 09:43 Dose: 30 mg Levothyroxine Sodium (Synthroid) 125 mcg PO DAILY [facility] Stop: 07/05/17 09:01 Last Admin: 01/03/17 09:43 Dose: 125 mcg Morphine Sulfate (Morphine Sulfate) 2 mg IVP Q4HR PRN PRN Reason: Severe Pain (7-10) Stop: 07/05/17 05:06 Last Admin: 01/03/17 10:58 Dose: 2 mg Naloxone HCl (Narcan) 0.4 mg IVP Q2MIN PRN PRN Reason: Opioid Reversal Stop: 07/05/17 05:06 Nitroglycerin (Nitroglycerin) 0.4 mg SL Q5MIN PRN PRN Reason: CHEST PAIN Stop: 07/05/17 05:10 Ondansetron HCl (Zofran) 4 mg IVP Q8HR PRN PRN Reason: Nausea And Vomiting Stop: 07/05/17 05:06 Ranolazine (Ranexa) 1,000 mg PO BID [facility] Stop: 07/05/17 09:01 Last Admin: 01/03/17 09:42 Dose: 1,000 mg - Imaging and Cardiology Echo: report reviewed Cardiac cath: report reviewed - EKG Interpretation EKG results cardiology: personally reviewed (A-Fib), other (24 hour tele AVG HR 96, A-Fib.) Consult Discharge Plan - Plan Referrals: Gianna Rendon, OUTSIDE SALES ACCOUNT MANAGER [Primary Care Provider] - (We have requested a follow up appointment with Gianna Rendon. The office will call you at home with an appointment date and time. ) <Lucila Mitchell - Last Filed: 01/03/17 15:36> Date of Encounter: 01/03/17 Assessment and Plan Discussion w patient/family: The assessment and plan as outlined above was discussed with the patient and/or family members who expressed understanding and agreement. All questions were answered. Thank you for involving us in the care of your patient. Please call with any questions. History of Present Illness History of present illness: Ms. Cox is a 76 year old female All Systems Review: A 10-system review of systems was performed and is negative for pertinent findings except as documented above in the HPI. Physical Examination Vital Signs, Last 4 Hours Temp Pulse Resp BP Pulse Ox 01/03/17 15:19 97.9 F 99 17 101/70 99 01/03/17 12:39 97.6 F 88 18 92/55 97 Results 01/03/17 01:51 01/03/17 01:51 - Attending Attestation I examined this patient and my medical decision-making was reviewed with the ACIDIZER HELPER/PA/Advanced Practice Nurse/Resident Physician. I agree with the documented findings, disposition and treatment plan. Ms. Cox has a history of moderate MR and severe LV systolic dysfunction. She presents to the hospital for nausea and vomiting in setting of confusion about her diuretics. She was found to have ARF on CKD. Incidentally discovered was worsening of MR on an echo performed during this hospitalization which may be related to chronic ischemia. However, her troponins are negative and patient has no complaints of chest pain. She does not appear to be in heart failure. Nevertheless, she has significant CAD that may not be amenable to further intervention. Last cath demonstrated 1 patent bypass graft and severe underlying [place] CAD. Nevertheless, she would not be a candidate for a cath at this time due to her decline in renal function. I recommend letting her kidneys recover to baseline. They are interested in following up with her Entry Driver Operator at [facility]. Further testing can be done as an outpatient. We will sign off. Please schedule follow up with her Entry Driver Operator.
[2017-01-03] MEDS: *HR* Heparin 5,000 UNIT/ML VIAL SQ SCH (18:05)
--- NOTE | 2017-01-03 19:58 | Electrocardiograph Report ---
[address] [place], [place] [address] Test Date: 2017-01-02 Pat Name: Angelina Cox Department: 104 Room: 3B13 Gender: F Gasoline Attendant: : 1940 Requested By: Luciana Mccarthy Order Number: [id number] Reading MD: Sukh Rojas MD Measurements Intervals [place] Rate: 102 P: WI: 0 QRS: 120 QRSD: 129 T: 199 QT: 407 QTc: 465 Interpretive Statements ATRIAL FIBRILLATION WITH RAPID VENTRICULAR RESPONSE INTRAVENTRICULAR CONDUCTION DELAY LEFT POSTERIOR FASCICULAR BLOCK POSSIBLE ANTEROSEPTAL MYOCARDIAL INFARCTION, OF INDETERMINATE AGE MODERATE T-WAVE ABNORMALITY, CONSIDER LATERAL ISCHEMIA Electronically Signed On 01-03-2017 19:56:35 EDT by Sukh Rojas MD
[2017-01-03 20:02] LABS: Protein/Creatinine Ratio,Urine 0.28 mg/mg (0-0.20)
[2017-01-03] MEDS: Insulin DETEMIR 100 UNIT/ML X5UNITS SQ SCH (20:46)
[2017-01-04] MEDS: 0.9 % Sodium Chloride 1,000 ML IVC SCH (00:36)
[2017-01-04] MEDS: *HR* Heparin 5,000 UNIT/ML VIAL SQ SCH ×2 (05:23→17:56)
[2017-01-04 06:12] LABS: Basophils % 0.2 %; Eosinophils % 0.5 %; Hematocrit 35.2 % (35.3-44.9); Hemoglobin 11.6 g/dL (11.5-15.4); Immature Granulocytes % 0.5 % (0-4); Lymphocytes # 0.6 K/mcL (0.6-4.6); Lymphocytes % 13.3 %; Mean Corpuscular Hemoglobin 27.5 pg (28.0-33.3); Mean Corpuscular Volume 83.4 fL (83.0-100.0); Mean Platelet Volume 10.8 fL (9.4-12.4); Monocytes # 0.5 K/mcL (0.0-1.3); Monocytes % 10.4 %; Neutrophils # 3.3 K/mcL (1.6-8.9); Platelet Count 212 K/mcL (140-400); Red Blood Count 4.22 M/mcL (3.82-4.97); Red Cell Distribution Width 16.6 % (11.5-14.5); Segmented Neutrophils % 75.1 %
[2017-01-04 06:17] LABS: INR 1.4; Prothrombin Time 14.7 Seconds (9.4-12.1)
[2017-01-04 06:28] LABS: ABG Base Excess -8.2 mEq/L (-2.0 to 3.0); ABG HCO3 17.1 mEQ/L (21-27); ABG Oxygen Saturation 99 % (95-98); ABG PCO2 34 mmHg (35-45); ABG PH 7.31 pH Units (7.32-7.45); ABG PO2 140 mmHg (85-104); ABG TCO2 18.1 mEq/L (20-26); Blood Gas FiO2 28 %; Blood Gas Liter Flow 2 L/MIN
[2017-01-04] MEDS ORDERED: Calcium Gluconate 1,000 MG in D5% in Water 100 ML IVPB ONE (06:30)
[2017-01-04 06:32] LABS: Calcium 8.2 mg/dL (8.6-10.8); Phosphorous 3.8 mg/dL (2.3-4.7); Potassium 4.4 mEq/L (3.5-4.5)
[2017-01-04] MEDS ORDERED: *HR* Promethazine 25 MG/ML VIAL IM PRN (06:36)
[2017-01-04] MEDS ORDERED: *HR* Promethazine 25 MG/ML VIAL IM ONE (06:37)
[2017-01-04] MEDS ORDERED: Sodium Bicarbonate 150 MEQ in D5% in Water 1,000 ML IVC SCH (06:45)
[2017-01-04] MEDS ORDERED: *HR* Promethazine 25 MG/ML VIAL IVP ONE (06:50)
[2017-01-04] MEDS ORDERED: Furosemide 20 MG/2 ML VIAL IVP ONE ×2 (06:52→06:55)
[2017-01-04] MEDS ORDERED: *HR* Promethazine 25 MG/ML VIAL IVP PRN (07:31)
--- NOTE | 2017-01-04 07:42 | Event Note ---
Date of Encounter: 01/03/17 Time of Encounter: 07:00 Rapid response was called by the nurse. She was found unresponsive, she was not hypoxemic. Glucose was 129. She was hypotensive and her urine output is decreased. Patient admitted due to acute kidney injury and hyperkalemia. A dose of calcium gluconate and 2 A of bicarbonate were given. The patient was started on BiPAP. No significant CO2 retention on ABG. The patient improved in regard to her mental status. Another IV access was placed. A chest x-ray was obtained. The patient was noted to be nauseous, at this point I do not feel safe to continue with BiPAP due to high risk of aspiration when the patient has the mask on. I explained this to the patient's son he expressed understanding. IV Zofran was ordered. A dose of Lasix was ordered as well. Lactic acid was 4.4. No evidence of anion gap metabolic acidosis. Possibility of aspiration pneumonia, evaluate with x-ray. The patient will be transferred to [facility] for continuity of care. I had a long conversation with the patient's son about the clinical condition of the patient. The patient's son states that her mother does not want to be intubated. I will change her CODE STATUS accordingly.
[2017-01-04] MEDS ORDERED: Vancomycin 1,000 MG in D5% in Water 250 ML IVPB SCH (07:43)
[2017-01-04 07:59] LABS: Thyroid Stimulating Hormone 1.656 mcIU/mL (0.350-4.840)
[2017-01-04] MEDS ORDERED: Piperacillin/Tazobactam 3.375 GM in D5% in Water (Mini-Bag+) 100 ML IVPB SCH (08:00)
[2017-01-04] MEDS ORDERED: Vancomycin 1,250 MG in D5% in Water 250 ML IVPB ONE (09:00)
[2017-01-04] MEDS: Insulin LISPRO 300 UNITS/3 ML VIAL SQ SCH ×4 (09:47→20:34)
[2017-01-04] MEDS: Isosorbide MONOnitrate (24 HR) 30 MG TAB.ER.24H PO SCH (09:47)
[2017-01-04] MEDS: Ranolazine 500 MG TAB.ER.12H PO SCH ×2 (09:49→21:00)
--- NOTE | 2017-01-04 10:25 | Neurology - Consult Note ---
Date of Encounter: 01/03/17 Time of Encounter: 10:21 Assessment and Plan (1) New onset seizure Current Visit: Yes Status: Acute Seizure could be explained by her hyponatremia in setting of acute on chronic kidney disease She did have head CT which was negative for any acute intracranial activities, but did show chronic L cerebellar infarct Symptoms did start Saturday, so large infarcts should be visualized on CT; she cannot receive MRI due presence of pacemaker Lactic acid was elevated at 4.1 this morning and TSH WNL Will treat with Keppra 250 mg IV BID in setting of renal insufficiency EEG and repeat head CT have been ordered; results pending History of Present Illness Chief complaint: altered mental status HPI: Ms. Cox is a 76 year old female who presented to the emergency department yesterday after sustaining a fall at home. She had a rapid response called this morning due to seizure-like activity and is currently obtunded, however son and daughter at bedside are able to assist with history. The son states that the patient lives with him and she had altered mental status since Saturday. He states that she was speaking incoherently and was easily forgetful and generalized weakness. At her baseline, she is cognitive and able to take care of herself, but uses a walker. He does admit that she has frequent falls and last fell Saturday after going to the bathroom where she tripped and hit a door , hitting her head. He claims that these are mechanical falls and she has no loss of consciousness. The son states that her mental status is declining since Saturday and had decreased oral intake since then. According to nursing staff, she developed facial and upper extremity jerking movements this morning and her eyes were rapidly moving. Son denies any history of seizures in the past, but does she have history of multiple strokes with left sided residual deficits, most notably in her leg. Of note, patient does have history of atrial fibrillation s/p pacemaker and uncontrolled diabetes where she develops episodes of confusion when she is hyperglycemic. Past Med Surg Social Fam HX - Past Medical History Medical history: atrial fibrillation, cardiomyopathy, CHF, coronary artery disease, CVA, diabetes, hyperlipidemia, hypertension, myocardial infarction, renal disease, thyroid disease Psychiatric history: no psych history - Past Surgical History Surgical History: angioplasty/stent, coronary bypass (CABG), pacemaker/AICD - Social History Smoking Status: Never smoker Smokeless Tobacco Status: No Alcohol use: none Drug use: none - Family History Mother Hx Family Endocrine Disorder: Yes (DIABETES MELLITUS.) Medications and Allergies Bumetanide [Bumex] 1 mg PO BID 01/03/17 [History] Calcitriol [Rocaltrol] 0.25 mcg PO DAILY 01/03/17 [History] Carvedilol [Coreg] 25 mg PO BID 01/03/17 [History] Clopidogrel [Plavix] 75 mg PO DAILY 01/03/17 [History] Furosemide [Lasix] 40 mg PO BID 01/03/17 [History] Glimepiride [Amaryl] 2 mg PO 0800 01/03/17 [History] Insulin ASPART [Novolog] 1 unit SQ QID 01/03/17 [History] Isosorbide MONOnitrate [Isosorbide Mononitrate] 30 mg PO DAILY 01/03/17 [History ] Levothyroxine [Synthroid] 125 mcg PO DAILY 01/03/17 [History] Losartan Potassium [Cozaar] 50 mg PO DAILY 01/03/17 [History] Nitroglycerin [Nitrostat] 0.4 mg SL PRN PRN 01/03/17 [History] Potassium Chloride [Klor-Con] 25 meq PO BID 01/03/17 [History] Ranolazine [Ranexa] 1,000 mg PO BID 01/03/17 [History] Rivaroxaban [Xarelto] 15 mg PO DAILY 01/03/17 [History] Rosuvastatin [Crestor] 20 mg PO DAILY 01/03/17 [History] Allergies pioglitazone [From Actos] Allergy (Verified 01/03/17 08:16) Cough ROS unobtainable: due to mental status All Systems: A 10-system review of systems was performed and is negative for pertinent findings except as documented above in the HPI. Physical Examination - Vital Signs Vital Signs: Initial Vital Signs Temp Pulse Resp BP Pulse Ox 97.5 F L 105 22 110/52 96 01/02/17 23:20 01/02/17 23:20 01/02/17 23:20 01/02/17 23:20 01/02/17 23:20 - Constitutional General appearance: other (does not follow commands or answer questions) - Neurologic Sensorimotor examination: other (uanble to assess) Detailed motor examination: other (unable to assess) Posture: other Reflex and gait examination: intact Reflexes: Biceps: 2+, Brachioradialis: 2+, Patella: 2+ Mental Status Examination: does not follow commands, opens eyes to voice, opens eyes to noxious stimulation, expressive aphasia, receptive aphasia, inattentive Cranial nerve examination: PERRL, no facial asymmetry is present Results - Laboratory Findings CBC and BMP: 01/04/17 10:32 01/04/17 10:32 Abnormal lab findings: Abnormal lab results Hct 35.2 % (35.3-44.9) L 01/04/17 04:46 MCH 27.5 pg (28.0-33.3) L 01/04/17 04:46 RDW 16.6 % (11.5-14.5) H 01/04/17 04:46 PT 14.7 Seconds (9.4-12.1) H 01/04/17 04:46 ABG pH 7.31 pH Units (7.32-7.45) L 01/04/17 06:25 ABG pCO2 34 mmHg (35-45) L 01/04/17 06:25 ABG pO2 140 mmHg (85-104) H 01/04/17 06:25 ABG HCO3 17.1 mEQ/L (21-27) L 01/04/17 06:25 ABG Total CO2 18.1 mEq/L (20-26) L 01/04/17 06:25 ABG O2 Saturation 99 % (95-98) H 01/04/17 06:25 ABG Base Excess -8.2 mEq/L (-2.0 to 3.0) L 01/04/17 06:25 Sodium 125 mEq/L (136-145) L 01/04/17 04:46 Chloride 90 mEq/L (98-109) L 01/04/17 04:46 BUN 50 mg/dL (7-20) H D 01/04/17 04:46 Creatinine 2.66 mg/dL (0.57-1.11) H 01/04/17 04:46 Est GFR ( Amer) 21 (> 60) L 01/04/17 04:46 Est GFR (Non-Af Amer) 17 (> 60) L 01/04/17 04:46 POC Glucose 129 (58-89) H 01/04/17 06:08 Hemoglobin A1c 8.6 % (-5.6) H 01/03/17 01:51 Calculated Osmolality 273 (280-300) L 01/04/17 04:46 Lactic Acid 4.1 mmol/L (0.5-2.2) H* 01/04/17 06:30 Uric Acid 11.4 mg/dL (2.6-6.0) H 01/03/17 12:45 Calcium 8.2 mg/dL (8.6-10.8) L 01/04/17 04:46 AST 126 Units/L (5-34) H 01/04/17 04:46 ALT 133 Units/L (0-55) H 01/04/17 04:46 C-Reactive Protein 24 mg/L (Less than 5) H 01/03/17 01:51 Albumin 3.0 g/dL (3.5-5.0) L 01/04/17 04:46 Albumin/Globulin Ratio 1.0 (1.1-2.2) L 01/04/17 04:46 PTH Intact 581.7 pg/ml (8.5-72.5) H 01/03/17 12:45 Urine Bilirubin Small (Negative) H 01/03/17 09:12 Ur Leukocyte Esterase Small (Negative) H 01/03/17 09:12 Urine Microscopic WBC 5-15 per hpf (0-3) H 01/03/17 09:12 Ur Squamous Epith Cells Many per lpf (None-Few) H 01/03/17 09:12 Ur Culture Indicated? YES (NO) A 01/03/17 09:12 Microalb/Creat Ratio 79 (0-30) H 01/03/17 19:39 Protein/Creatinin Ratio 0.28 mg/mg (0-0.20) H 01/03/17 19:39 Urine Total Protein 25 mg/dL (1-14) H 01/03/17 19:39 Consult Discharge Plan - Plan Referrals: Gianna Rendon, CHARLINE [Primary Care Provider] - 01/11/17 1:30 pm ()
[2017-01-04 10:42] LABS: Basophils % 0.2 %; Eosinophils % 0.2 %; Hematocrit 36.2 % (35.3-44.9); Immature Granulocytes % 0.3 % (0-4); Lymphocytes # 0.3 K/mcL (0.6-4.6); Lymphocytes % 4.8 %; Mean Corpuscular HGB Conc 33.1 g/dL (31.6-35.5); Mean Corpuscular Hemoglobin 27.4 pg (28.0-33.3); Mean Corpuscular Volume 82.6 fL (83.0-100.0); Mean Platelet Volume 10.3 fL (9.4-12.4); Monocytes # 0.4 K/mcL (0.0-1.3); Monocytes % 5.7 %; Neutrophils # 5.8 K/mcL (1.6-8.9); Platelet Count 237 K/mcL (140-400); Red Blood Count 4.38 M/mcL (3.82-4.97); Red Cell Distribution Width 16.8 % (11.5-14.5); Segmented Neutrophils % 88.8 %
[2017-01-04 10:56] LABS: Calcium 8.3 mg/dL (8.6-10.8); Magnesium 2.1 mg/dL (1.6-2.6); Potassium 4.4 mEq/L (3.5-4.5)
[2017-01-04] MEDS: *HR* Morphine 2 MG/ML SYRINGE IVP PRN ×3 (12:06→22:59)
--- NOTE | 2017-01-04 13:17 | EEG/EMG/Oth Biometrics Report ---
EEG Procedure Report Date of procedure: 01/04/17 EEG Procedure: Routine EEG Procedure Note: Report: This EEG was acquired with standard international 10-20 electrode placement system with EKG recording. The background activity during this EEG was replaced by a mixture of theta and alpha activity with best frequency up to 8 Hz. The background activity was reactive to eye openings. Sleep stages were not definitively identified during the study. Some of the delta waves are large amplitude and having features of triphasic morphology. There are no electricographic seizures identified during this tracing. There are no epileptiform discharges and focal slowing noted during this recording. Photic stimulation produced no abnormalities. HV not performed during this study. EKG tracing showed no significant cardiac dysarrhythmia. Impression: This is an abnormal EEG due to presence of mild to moderate diffuse background slowing. Clinical Correlation: This EEG is consistent with mild to moderate diffuse cerebral dysfunction that can be seen in patients with encephalopathy, metabolic/toxic, electrolyte derangement, or other causes. Clinical correlation suggested.
[2017-01-04] MEDS: levETIRAcetam 250 MG in 0.9 % Sodium Chloride 100 ML IVPB SCH ×2 (13:39→21:01)
[2017-01-04 13:58] LABS: Hepatitis A Antibody IgM Nonreactive (Nonreactive); Hepatitis B Core IgM Nonreactive (Nonreactive); Hepatitis C Virus Antibody Nonreactive (Nonreactive)
--- NOTE | 2017-01-04 14:14 | Nephrology Progress Note ---
<Coco Diego - Last Filed: 01/04/17 14:12> Date of Encounter: 01/04/17 Time of Encounter: 14:12 - Assessment and Plan (1) GEORGES (acute kidney injury) Current Visit: Yes Status: Acute Improved with IVF, unfortunately due to patient's unresponsive episode IVF were discontinued. Currently being worked up by neurology for possible seizures. Avoid nephrotoxins if possible. 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 Opened eyes spontaneously. Follows visually. Said "hi." Objective - Vital Signs Vital signs: Vital Signs Temp Pulse Resp BP Pulse Ox 01/04/17 12:00 97.8 F 104 18 112/86 100 01/04/17 07:40 103 16 97/68 99 01/04/17 07:17 97.5 F L 106 20 113/82 99 01/04/17 05:55 99 01/04/17 03:44 97.6 F 101 18 108/74 99 01/03/17 23:12 97.8 F 123 20 102/71 96 Intake and Output 01/03/17 01/04/17 01/04/17 23:59 07:59 15:59 Intake Total 1000 / 1000 350 / 350 Output Total 275 / 275 Balance -275 / -275 1000 / 1000 350 / 350 Intake: IV Fluids 1000 / 1000 350 / 350 0.9 % Sodium Chloride 1, 1000 / 1000 000 ML @ 100 mls/hr IVC . Q10H [facility] Rx#:[id number] Zosyn 3.375 GM In 100 / 100 Dextrose 5% (Minibag+) 100 ML 100 ML @ 25 mls/hr IVPB Q8HR [facility] Rx#: [id number] Vancocin 1,250 MG In 250 / 250 Dextrose 5% 250 ML @ 166. 67 mls/hr IVPB ONCE ONE Rx#:[id number] Output: Catheter 275 / 275 Other: Blood Glucose* 144 129 142 - General Appearance General appearance: Present: well-developed, well-nourished EENT: Present: mucous membranes moist Neck: Present: supple Respiratory: Present: clear Cardiology: Present: no murmurs, regular rate, regular rhythm, normal S1, normal S2 Integumentary: Present: no rash, warm and dry Neurologic: Absent: alert and oriented x3 Additional Comments: opens eyes and tracks visually, mental status waxing and waning from incomprehensible moaning to saying hi Musculoskeletal: Present: no deformities - Lab 01/04/17 10:32 01/04/17 10:32 Most recent lab results ABG pH 7.31 pH Units (7.32-7.45) L 01/04/17 06:25 ABG pCO2 34 mmHg (35-45) L 01/04/17 06:25 ABG pO2 140 mmHg (85-104) H 01/04/17 06:25 ABG HCO3 17.1 mEQ/L (21-27) L 01/04/17 06:25 ABG O2 Saturation 99 % (95-98) H 01/04/17 06:25 Calcium 8.3 mg/dL (8.6-10.8) L 01/04/17 10:32 Phosphorus 4.0 mg/dL (2.3-4.7) 01/04/17 10:32 Magnesium 2.1 mg/dL (1.6-2.6) 01/04/17 10:32 Urine Creatinine 91 mg/dL 01/03/17 19:39 Urine Sodium < 20.0 mEq/L 01/03/17 09:12 Urine Total Protein 25 mg/dL (1-14) H 01/03/17 19:39 Consult Discharge Plan - Plan Referrals: Gianna Rendon CNP [Primary Care Provider] - 01/11/17 1:30 pm () <Haley Youssef - Last Filed: 01/05/17 12:29> Date of Encounter: 01/04/17 Objective - Vital Signs Vital signs: Vital Signs Temp Pulse Resp BP Pulse Ox 01/05/17 12:09 16 01/05/17 11:00 16 128/83 01/05/17 09:30 100 01/05/17 08:56 100 01/05/17 08:54 96.2 F L 94 16 123/81 01/05/17 05:30 97.5 F L 92 18 111/84 96 01/04/17 23:11 98.5 F 98 20 116/79 98 01/04/17 20:00 97.8 F 109 22 124/85 98 01/04/17 16:24 97.4 F L 121 84 112/86 100 01/04/17 16:18 98.0 F 73 18 151/88 97 Intake and Output 01/04/17 01/05/17 01/05/17 23:59 07:59 15:59 Intake Total 305.0 / 305.0 120 / 120 Output Total 650 / 650 950 / 950 Balance -345.0 / -345.0 -830 / -830 Intake: IV Fluids 305.0 / 305.0 Keppra 250 MG In 0.9 % 205.0 / 205.0 Sodium Chloride 100 ML @ 400 mls/hr IVPB BID [facility] Rx#:[id number] Zosyn 3.375 GM In 100 / 100 Dextrose 5% (Minibag+) 100 ML 100 ML @ 25 mls/hr IVPB Q12HR [facility] Rx#: [id number] Oral 0 / 0 120 / 120 Output: Catheter 650 / 650 950 / 950 Other: Meal Breakfast Percent of Meal Consumed 5% Blood Glucose* 78 79 68 - Lab 01/05/17 05:30 01/05/17 05:30 Most recent lab results ABG pH 7.31 pH Units (7.32-7.45) L 01/04/17 06:25 ABG pCO2 34 mmHg (35-45) L 01/04/17 06:25 ABG pO2 140 mmHg (85-104) H 01/04/17 06:25 ABG HCO3 17.1 mEQ/L (21-27) L 01/04/17 06:25 ABG O2 Saturation 99 % (95-98) H 01/04/17 06:25 Calcium 8.5 mg/dL (8.6-10.8) L 01/05/17 05:30 Phosphorus 4.1 mg/dL (2.3-4.7) 01/05/17 05:30 Magnesium 2.0 mg/dL (1.6-2.6) 01/05/17 05:30 Urine Creatinine 91 mg/dL 01/03/17 19:39 Urine Sodium < 20.0 mEq/L 01/03/17 09:12 Urine Total Protein 25 mg/dL (1-14) H 01/03/17 19:39 - Attending Attestation I examined this patient and my medical decision-making was reviewed with the FIELD SPECIALIST/PA/Advanced Practice Nurse/Resident Physician. I agree with the documented findings, disposition and treatment plan as described except to the extent set forth below. Interim noted, PT seen and examined s/p witnessed seizures and now post-ictal. Family at bedside. Ppt responding but lethargic. SCr improved after IVF overnight at 2.7, GFR 17 but stopped for possible pulm edema with diuretics given which is acceptable given current condition. Sodium improving as well as potassium normalized.Continue to avoid nephrotoxins if possible. No acute indication for ENVIRONMENTAL SERVICES MANAGER. Will follow with you.
[2017-01-04] MEDS ORDERED: *HR* LORazepam 2 MG/ML VIAL IVP PRN (14:50)
--- NOTE | 2017-01-04 16:21 | Internal Med Progress Note ---
Date of Encounter: 01/04/17 Time of Encounter: 13:30 - Assessment and plan (1) New onset seizure Current Visit: Yes Status: Acute Assessment and plan: likely secondary to metabolic insufficiency and renal failure Neurology consultation appreciated Patient started on IV Keppra Ativan prn for breakthrough seizures Will continue to closely monitor (2) Juswj-wz-ydtstxc kidney injury Current Visit: Yes Status: Acute Assessment and plan: Patient has underlying CKD Stage 4 holding IV fluids at this time due to volume overload status pt received one dose of Lasix this morning will restart low dose diuretic therapy Nephrology input greatly appreciated will continue to closely monitor (3) Congestive heart failure Current Visit: Yes Status: Chronic Assessment and plan: EF of 25-30% clinically presented with volume overload requiring re-initiation of diuretic therapy will monitor I/Os, daily weights fluid restricted diet Cardiology input noted, no acute cardiac intervention recommended at this time however pt will benefit from AICD once stable Qualifiers: Congestive heart failure type: combined Congestive heart failure chronicity : chronic Qualified Code(s): I50.42 - Chronic combined systolic (congestive) and diastolic (congestive) heart failure (4) Pneumonia Current Visit: Yes Status: Acute Assessment and plan: concern for infectious process on CXR given initial lactic acidosis, worsening respiratory status, and XR findings- started broad spectrum abx Will de-escalate therapy as patient clinically improves follow up blood cultures Qualifiers: Pneumonia type: due to unspecified organism Laterality: unspecified laterality Lung location: unspecified part of lung Qualified Code(s): J18.9 - Pneumonia, unspecified organism (5) Hyponatremia Current Visit: Yes Status: Acute Assessment and plan: can be secondary to hypovolemia hyponatremia given low serum osm noted to be hypotensive s/p volume repletion, Na improving BP within acceptable range at this time will continue to closely monitor (6) Hyperkalemia Current Visit: Yes Status: Resolved Assessment and plan: resolved will continue to closely monitor (7) Atrial fibrillation Current Visit: Yes Status: Chronic Assessment and plan: Rate controlled with Carvedilol and anticoagulated with Xarelto will restart PO meds once patient's mentation improves started Metoprolol IV for rate control with parameters to hold medication if SBP <120 will consider starting heparin drip for anticoagulation if patient is not able to take PO intake for long Qualifiers: Atrial fibrillation type: chronic Qualified Code(s): I48.2 - Chronic atrial fibrillation (8) Ischemic cardiomyopathy Current Visit: Yes Status: Chronic (9) Severe mitral regurgitation Current Visit: Yes Status: Chronic Assessment and plan: further work up as outpatient 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 primary splicing machine operator (10) DVT prophylaxis Current Visit: Yes Status: Acute Assessment and plan: anticoagulated with Xarelto - Subjective Interval history: Patient is a 76y/o female who is admitted for change in mental status, acute on chronic kidney injury, and hyperkalemia. Earlier this morning patient was noted to have acute change in mental status with a witnessed seizure like activity after which patient was transferred to . At that time a detailed discussion was held with the family and decision was made to change patient's code status to DNR/DNI. Pt was evaluated by me numerous times throughout the day. She became post-ictal after having another episode of seizure like activity. STAT CT head was obtained which showed no acute changes compared to previous study. She was also noted to have infectious process on CxR concerning for PNA for which she was empirically started on IV abx. At this time she is resting in bed with family present at bedside. Her mental status is improved since morning. She is able to open eyes to command but communicates minimally. She was also noted to be in volume overload, requiring low dose Lasix this morning. - Constitutional Vitals: Temp Pulse Resp BP Pulse Ox 97.8 F 104 18 112/86 100 01/04/17 12:00 01/04/17 12:00 01/04/17 12:00 01/04/17 12:00 01/04/17 12:00 General appearance: Present: A&O X 0, cooperative, pleasant, no acute distress, obese. Absent: answers questions appropriately - Head Head exam: Present: atraumatic, normocephalic - Eye Eye exam: Present: normal appearance, PERRL, conjuntiva pink, sclera anicteric - Respiratory Respiratory exam: Absent: respiratory distress, wheezes (bibasilar crackles, coarse breath sounds) - Cardiovascular Cardiovascular exam: Present: RRR, +S1, +S2. Absent: diastolic murmur, gallop, rubs, systolic murmur - GI/Abdominal GI/Abdominal exam: Present: normal bowel sounds, soft, no peritoneal signs. Absent: distended, tenderness - Extremities Exam Extremities exam: Present: pedal edema, warm, radial pulses palpable and symetrical. Absent: calf tenderness - Neurological Exam Neurological exam: Present: alert, oriented X3 - Psychiatric Psychiatric exam: Present: normal affect, normal mood Internal Medicine: Result - Labs CBC & Chem 7: 01/04/17 10:32 01/04/17 10:32 Labs: Short CBC 01/04/17 01/04/17 Range/Units 04:46 10:32 WBC 4.4 6.5 (4.3-11.1) K/mcL Hgb 11.6 12.0 (11.5-15.4) g/dL Hct 35.2 L 36.2 (35.3-44.9) % Plt Count 212 237 (140-400) K/mcL Neutrophils # 3.3 5.8 (1.6-8.9) K/mcL BMP 01/04/17 01/04/17 04:46 10:32 Sodium 125 L 127 L Potassium 4.4 4.4 Chloride 90 L 92 L Carbon Dioxide 24 24 BUN 50 H D 50 H Creatinine 2.66 H 2.73 H Glucose 84 121 H Calcium 8.2 L 8.3 L Liver Function 01/04/17 01/04/17 Range/Units 04:46 10:32 Total Bilirubin 1.0 1.0 (0.2-1.2) mg/dL AST 126 H 141 H (5-34) Units/L ALT 133 H 148 H (0-55) Units/L Alkaline Phosphatase 125 128 H (38-126) Units/L Albumin 3.0 L 3.0 L (3.5-5.0) g/dL - ABG Interpretation ABG results: ABG ABG pH 7.31 pH Units (7.32-7.45) L 01/04/17 06:25 ABG pCO2 34 mmHg (35-45) L 01/04/17 06:25 ABG pO2 140 mmHg (85-104) H 01/04/17 06:25 ABG O2 Saturation 99 % (95-98) H 01/04/17 06:25 PT/INR, D-dimer PT 14.7 Seconds (9.4-12.1) H 01/04/17 04:46 - Impressions Impressions Chest X-Ray 01/04/17 06:49 IMPRESSION: Developing right basilar atelectasis or pneumonitis. D/ / Frankie Welch MD / Frankie Welch MD Interpreting Provider: Frankie Welch MD Head CT 01/04/17 09:30 IMPRESSION: Stable exam with evidence of chronic microvascular changes. No acute intracranial abnormality. D/ / 01/04/2017 10:39:23 Gato Hatfield MD / mango Interpreting Provider: Gato Hatfield MD Consult Discharge Plan - Plan Referrals: Gianna Rendon CNP [Primary Care Provider] - 01/11/17 1:30 pm ()
[2017-01-04] MEDS: *HR* Metoprolol 5 MG/5 ML VIAL IVP SCH ×2 (17:48→23:50)
[2017-01-04] MEDS: Piperacillin/Tazobactam 3.375 GM in D5% in Water (Mini-Bag+) 100 ML IVPB SCH (17:57)
[2017-01-04 18:33] LABS: Calcium 8.4 mg/dL (8.6-10.8); Potassium 4.3 mEq/L (3.5-4.5)
[2017-01-04] MEDS: Insulin DETEMIR 100 UNIT/ML X5UNITS SQ SCH (20:34)
[2017-01-04] MEDS: *HR* Dextrose 50 % in Water (Syg) 50 ML SYRINGE IVP PRN (20:38)
[2017-01-04] MEDS: Nitroglycerin 0.4 MG TAB.SUBL SL PRN ×2 (21:58→22:54)
[2017-01-04] MEDS ORDERED: Haloperidol Lactate 5 MG/ML VIAL IVP ONE (23:38)
[2017-01-04] MEDS ORDERED: Haloperidol Lactate 5 MG/ML VIAL ONE (23:44)
[2017-01-05] MEDS: Piperacillin/Tazobactam 3.375 GM in D5% in Water (Mini-Bag+) 100 ML IVPB SCH ×2 (05:26→17:41)
[2017-01-05] MEDS: *HR* Heparin 5,000 UNIT/ML VIAL SQ SCH ×2 (05:27→17:40)
[2017-01-05] MEDS: *HR* Metoprolol 5 MG/5 ML VIAL IVP SCH ×3 (05:27→17:31)
[2017-01-05 05:41] LABS: Basophils % 0.2 %; Eosinophils % 0.2 %; Hematocrit 34.3 % (35.3-44.9); Hemoglobin 11.4 g/dL (11.5-15.4); Immature Granulocytes % 0.5 % (0-4); Lymphocytes # 0.6 K/mcL (0.6-4.6); Lymphocytes % 9.9 %; Mean Corpuscular HGB Conc 33.2 g/dL (31.6-35.5); Mean Corpuscular Hemoglobin 27.7 pg (28.0-33.3); Mean Corpuscular Volume 83.3 fL (83.0-100.0); Mean Platelet Volume 9.9 fL (9.4-12.4); Monocytes # 0.6 K/mcL (0.0-1.3); Monocytes % 10.1 %; Neutrophils # 4.8 K/mcL (1.6-8.9); Platelet Count 202 K/mcL (140-400); Red Blood Count 4.12 M/mcL (3.82-4.97); Red Cell Distribution Width 16.7 % (11.5-14.5); Segmented Neutrophils % 79.1 %
[2017-01-05 06:02] LABS: Calcium 8.5 mg/dL (8.6-10.8); Phosphorous 4.1 mg/dL (2.3-4.7); Potassium 3.8 mEq/L (3.5-4.5)
[2017-01-05] MEDS: *HR* Dextrose 50 % in Water (Syg) 50 ML SYRINGE IVP PRN (06:15)
[2017-01-05] MEDS: Insulin LISPRO 300 UNITS/3 ML VIAL SQ SCH ×6 (08:13→21:26)
--- NOTE | 2017-01-05 09:06 | Electrocardiograph Report ---
[place] [id number] Test Date: 2017-01-04 Pat Name: Angelina Cox Department: 115 Room: 2N09 Gender: F Material Requirements Planning Manager: [id number] : 1940 Requested By: Echo Royal Order Number: [id number] Reading MD: Robert Jeffrey MD Measurements Intervals [place] Rate: 102 P: CT: 0 QRS: -58 QRSD: 145 T: 104 QT: 407 QTc: 466 Interpretive Statements ATRIAL FIBRILLATION WITH RAPID VENTRICULAR RESPONSE MARKED LEFT AXIS DEVIATION INTRAVENTRICULAR CONDUCTION DELAY Electronically Signed On 01-05-2017 9:05:12 EDT by Robert Jeffrey MD
[2017-01-05] MEDS: Isosorbide MONOnitrate (24 HR) 30 MG TAB.ER.24H PO SCH (10:06)
[2017-01-05] MEDS: Ranolazine 500 MG TAB.ER.12H PO SCH ×2 (10:07→22:00)
[2017-01-05] MEDS: Furosemide 20 MG/2 ML VIAL IVP SCH (10:09)
[2017-01-05] MEDS: levETIRAcetam 250 MG in 0.9 % Sodium Chloride 100 ML IVPB SCH ×2 (10:10→21:50)
--- NOTE | 2017-01-05 10:26 | Internal Med Progress Note ---
Date of Encounter: 01/05/17 Time of Encounter: 10:23 - Assessment and plan (1) New onset seizure Current Visit: Yes Status: Acute Assessment and plan: likely secondary to metabolic insufficiency and renal failure Neurology consultation appreciated Continue IV Keppra Ativan prn for breakthrough seizures Will continue to closely monitor Mental status improved from previous day-will continue to monitor (2) Edpba-kp-esdqtgx kidney injury Current Visit: Yes Status: Acute Assessment and plan: Patient has underlying CKD Stage 4 holding IV fluids at this time due to volume overload status Continue low dose diuretic therapy Nephrology input greatly appreciated will continue to closely monitor (3) Congestive heart failure Current Visit: Yes Status: Chronic Assessment and plan: EF of 25-30% clinically presented with volume overload requiring re-initiation of diuretic therapy will monitor I/Os, daily weights fluid restricted diet Cardiology input noted, no acute cardiac intervention recommended at this time however pt will benefit from AICD once stable Qualifiers: Congestive heart failure type: combined Congestive heart failure chronicity : chronic Qualified Code(s): I50.42 - Chronic combined systolic (congestive) and diastolic (congestive) heart failure (4) Pneumonia Current Visit: Yes Status: Acute Assessment and plan: concern for infectious process on CXR given initial lactic acidosis, worsening respiratory status, and XR findings- started broad spectrum abx-Will continue Will de-escalate therapy as patient clinically improves follow up blood cultures Qualifiers: Pneumonia type: due to unspecified organism Laterality: unspecified laterality Lung location: unspecified part of lung Qualified Code(s): J18.9 - Pneumonia, unspecified organism (5) Hyponatremia Current Visit: Yes Status: Acute Assessment and plan: can be secondary to hypovolemia hyponatremia given low serum osm noted to be hypotensive s/p volume repletion, Na improving BP within acceptable range at this time will continue to closely monitor (6) Hyperkalemia Current Visit: Yes Status: Resolved (7) Atrial fibrillation Current Visit: Yes Status: Chronic Assessment and plan: Rate controlled with Carvedilol and anticoagulated with Xarelto will restart PO meds once patient's mentation improves continue Metoprolol IV for rate control with parameters to hold medication if SBP<120 Xarelto for anticoagulation Qualifiers: Atrial fibrillation type: chronic Qualified Code(s): I48.2 - Chronic atrial fibrillation (8) Ischemic cardiomyopathy Current Visit: Yes Status: Chronic (9) Severe mitral regurgitation Current Visit: Yes Status: Chronic Assessment and plan: further work up as outpatient 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 primary director of radio services (10) DVT prophylaxis Current Visit: Yes Status: Acute Assessment and plan: anticoagulated with Xarelto (11) Diabetes mellitus Current Visit: Yes Status: Acute Assessment and plan: Noted to be hypoglycemic this morning will closely monitor FS and blood glucose encourage PO intake patient able to take some of her breakfast Will continue to monitor Qualifiers: Diabetes mellitus type: type 2 Diabetes mellitus complication status: with unspecified complications Diabetes mellitus detention insulin use: with watermaster use Qualified Code(s): E11.8 - Type 2 diabetes mellitus with unspecified complications; 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 Resting in bed and mental status improved from previous day. Awake and alert but confused. Oriented to self. As per nursing staff, minimally tolerating PO intake and noted to be hypoglycemic this morning. No other overnight events reported. - Constitutional Vitals: Temp Pulse Resp BP Pulse Ox 96.2 F L 94 16 123/81 100 01/05/17 08:54 01/05/17 08:54 01/05/17 08:54 01/05/17 08:54 01/05/17 08:56 General appearance: Present: A&O X 0, cooperative, pleasant, no acute distress, obese. Absent: answers questions appropriately - Head Head exam: Present: atraumatic, normocephalic - Eye Eye exam: Present: PERRL, conjuntiva pink, sclera anicteric - Respiratory Respiratory exam: Present: CTAB. Absent: respiratory distress, wheezes - Cardiovascular Cardiovascular exam: Present: RRR, +S1, +S2. Absent: diastolic murmur, gallop, rubs, systolic murmur - GI/Abdominal GI/Abdominal exam: Present: normal bowel sounds, soft, no peritoneal signs. Absent: distended, tenderness - Extremities Exam Extremities exam: Present: warm, radial pulses palpable and symetrical. Absent : calf tenderness, cyanotic, pedal edema - Neurological Exam Neurological exam: Present: alert Internal Medicine: Result - Labs CBC & Chem 7: 01/05/17 05:30 01/05/17 05:30 Labs: Short CBC 01/04/17 01/05/17 Range/Units 10:32 05:30 WBC 6.5 6.0 (4.3-11.1) K/mcL Hgb 12.0 11.4 L (11.5-15.4) g/dL Hct 36.2 34.3 L (35.3-44.9) % Plt Count 237 202 (140-400) K/mcL Neutrophils # 5.8 4.8 (1.6-8.9) K/mcL BMP 01/04/17 01/04/17 01/05/17 10:32 18:13 05:30 Sodium 127 L 128 L 131 L Potassium 4.4 4.3 3.8 Chloride 92 L 92 L 93 L Carbon Dioxide 24 22 25 BUN 50 H 50 H 48 H Creatinine 2.73 H 2.67 H 2.66 H Glucose 121 H 73 36 L* Calcium 8.3 L 8.4 L 8.5 L Liver Function 01/04/17 Range/Units 10:32 Total Bilirubin 1.0 (0.2-1.2) mg/dL AST 141 H (5-34) Units/L ALT 148 H (0-55) Units/L Alkaline Phosphatase 128 H (38-126) Units/L Albumin 3.0 L (3.5-5.0) g/dL - ABG Interpretation ABG results: ABG ABG pH 7.31 pH Units (7.32-7.45) L 01/04/17 06:25 ABG pCO2 34 mmHg (35-45) L 01/04/17 06:25 ABG pO2 140 mmHg (85-104) H 01/04/17 06:25 ABG O2 Saturation 99 % (95-98) H 01/04/17 06:25 PT/INR, D-dimer PT 14.7 Seconds (9.4-12.1) H 01/04/17 04:46 - Impressions Impressions Head CT 01/04/17 09:30 IMPRESSION: Stable exam with evidence of chronic microvascular changes. No acute intracranial abnormality. D/ / 01/04/2017 10:39:23 Gato Hatfield MD / mango Interpreting Provider: Gato Hatfield MD Consult Discharge Plan - Plan Referrals: Gianna Rendon CNP [Primary Care Provider] - 01/11/17 1:30 pm ()
[2017-01-05] MEDS ORDERED: Dextrose Gel 15 GM PO PRN ×2 (10:29)
[2017-01-05] MEDS ORDERED: D5% in Water 1,000 ML IVC PRN (10:29)
[2017-01-05] MEDS ORDERED: *HR* Dextrose 50 % in Water (Syg) 50 ML SYRINGE IVP PRN (10:29)
[2017-01-05 12:04] LABS: Complement Component 3 78 mg/dL (88-201); Complement Component 4 17 mg/dL (10-40)
--- NOTE | 2017-01-05 12:31 | Neurology Progress Note ---
Date of Encounter: 01/05/17 Time of Encounter: 12:29 Assessment and Plan (1) New onset seizure Current Visit: Yes Status: Acute Likely secondary to metabolic derangement/renal failure. No recurrent seizures since admission. On keppra 250mg q12 IV. mental status significantly improved as medical conditions improve. Will keep on Keppra 250mg q12 IV and switch to oral 250mg bid when able to swallow. Plan is to keep her on Keppra 250mg bid and it may be discontinued in the next weeks if continues to do well. Continue medical and supportive care. Subjective Principal diagnosis: seizure Interval history: Patient seen and examined. She is hypersomnolent but easily arousable. Mental status appears much improved than yesterday. moving all extremities. No recurrent seizure activity. On keppra 250mg IV q12 Objective - Constitutional Vitals: Temp Pulse Resp BP Pulse Ox 96.2 F L 94 16 128/83 100 01/05/17 08:54 01/05/17 08:54 01/05/17 12:09 01/05/17 11:00 01/05/17 09:30 - Neurological Exam Sensorimotor examination: Present: other (uanble to assess) Motor Examination: Present: other (Moves all extremities, no focal weakness noted) Posture: Present: other (NOne) Reflex and gait examination: intact Reflexes: Biceps: 1+, Triceps: 1+, Brachioradialis: 1+, Patella: 1+, Achilles: 1 + Mental Status Examination: Present: drowsy (But easily arousable), opens eyes to voice, opens eyes to noxious stimulation, makes eye contact Cranial nerve examination: Present: PERRL, EOMI, corneal reflexes brisk symmetrically, sensory to face intact, no facial asymmetry is present Results - Laboratory Findings CBC and BMP: 01/05/17 05:30 01/05/17 05:30 Abnormal lab findings: Abnormal lab results Hgb 11.4 g/dL (11.5-15.4) L 01/05/17 05:30 Hct 34.3 % (35.3-44.9) L 01/05/17 05:30 MCH 27.7 pg (28.0-33.3) L 01/05/17 05:30 RDW 16.7 % (11.5-14.5) H 01/05/17 05:30 PT 14.7 Seconds (9.4-12.1) H 01/04/17 04:46 ABG pH 7.31 pH Units (7.32-7.45) L 01/04/17 06:25 ABG pCO2 34 mmHg (35-45) L 01/04/17 06:25 ABG pO2 140 mmHg (85-104) H 01/04/17 06:25 ABG HCO3 17.1 mEQ/L (21-27) L 01/04/17 06:25 ABG Total CO2 18.1 mEq/L (20-26) L 01/04/17 06:25 ABG O2 Saturation 99 % (95-98) H 01/04/17 06:25 ABG Base Excess -8.2 mEq/L (-2.0 to 3.0) L 01/04/17 06:25 Sodium 131 mEq/L (136-145) L 01/05/17 05:30 Chloride 93 mEq/L (98-109) L 01/05/17 05:30 BUN 48 mg/dL (7-20) H 01/05/17 05:30 Creatinine 2.66 mg/dL (0.57-1.11) H 01/05/17 05:30 Est GFR ( Amer) 21 (> 60) L 01/05/17 05:30 Est GFR (Non-Af Amer) 17 (> 60) L 01/05/17 05:30 Glucose 36 mg/dL (70-99) L* 01/05/17 05:30 POC Glucose 41 (58-89) L* 01/05/17 06:12 Hemoglobin A1c 8.6 % (-5.6) H 01/03/17 01:51 Uric Acid 11.4 mg/dL (2.6-6.0) H 01/03/17 12:45 Calcium 8.5 mg/dL (8.6-10.8) L 01/05/17 05:30 AST 141 Units/L (5-34) H 01/04/17 10:32 ALT 148 Units/L (0-55) H 01/04/17 10:32 Alkaline Phosphatase 128 Units/L (38-126) H 01/04/17 10:32 C-Reactive Protein 24 mg/L (Less than 5) H 01/03/17 01:51 Albumin 3.0 g/dL (3.5-5.0) L 01/04/17 10:32 Albumin/Globulin Ratio 1.0 (1.1-2.2) L 01/04/17 10:32 PTH Intact 581.7 pg/ml (8.5-72.5) H 01/03/17 12:45 Urine Bilirubin Small (Negative) H 01/03/17 09:12 Ur Leukocyte Esterase Small (Negative) H 01/03/17 09:12 Urine Microscopic WBC 5-15 per hpf (0-3) H 01/03/17 09:12 Ur Squamous Epith Cells Many per lpf (None-Few) H 01/03/17 09:12 Ur Culture Indicated? YES (NO) A 01/03/17 09:12 Microalb/Creat Ratio 79 (0-30) H 01/03/17 19:39 Protein/Creatinin Ratio 0.28 mg/mg (0-0.20) H 01/03/17 19:39 Urine Total Protein 25 mg/dL (1-14) H 01/03/17 19:39 Complement C3 78 mg/dL (88-201) L 01/03/17 12:45 Consult Discharge Plan - Plan Referrals: Gianna Rendon, BOTTOM CRANE OPERATOR [Primary Care Provider] - 01/11/17 1:30 pm ()
--- NOTE | 2017-01-05 12:32 | Nephrology Progress Note ---
Date of Encounter: 01/05/17 Time of Encounter: 12:00 - Assessment and Plan (1) GEORGES (acute kidney injury) Current Visit: Yes Status: Acute SCr remains the same as yesterday at 2.67, GFR 17. No active indication for ARGON TESTER at this time. Continue to avoid nephrotoxins if possible US of kidney showed some renal cysts with preserved kidney sizes but no hydronephrosis Unable to give IVF at this time but will bolus once with albumin Intermittent diuretics ok at this time UOP noted at 650cc yesterday but already 950cc today so far (2) CKD (chronic kidney disease), stage IV Current Visit: Yes Status: Acute Baseline GFR appears to be around 27 PTH very elevated >500 with calcitriol started yesterday. Vitamin D WNL Urine shows minimal microalbuminuria, will monitor GIL, SPEP pending results (3) Hyponatremia Current Visit: Yes Status: Acute Sodium improving at 131, will monitor (4) Hyperkalemia Current Visit: Yes Status: Resolved Subjective Principal diagnosis: GEORGES Interval history: Pt seen and examined much more awake and talking. She denies being thirsty or hungry. Family at bedside. Per family, she had some apple sauce this am Objective - Vital Signs Vital signs: Vital Signs Temp Pulse Resp BP Pulse Ox 01/05/17 12:09 16 01/05/17 11:00 16 128/83 01/05/17 09:30 100 01/05/17 08:56 100 01/05/17 08:54 96.2 F L 94 16 123/81 01/05/17 05:30 97.5 F L 92 18 111/84 96 01/04/17 23:11 98.5 F 98 20 116/79 98 01/04/17 20:00 97.8 F 109 22 124/85 98 01/04/17 16:24 97.4 F L 121 84 112/86 100 01/04/17 16:18 98.0 F 73 18 151/88 97 Intake and Output 01/04/17 01/05/17 01/05/17 23:59 07:59 15:59 Intake Total 305.0 / 305.0 120 / 120 Output Total 650 / 650 950 / 950 Balance -345.0 / -345.0 -830 / -830 Intake: IV Fluids 305.0 / 305.0 Keppra 250 MG In 0.9 % 205.0 / 205.0 Sodium Chloride 100 ML @ 400 mls/hr IVPB BID [facility] Rx#:[id number] Zosyn 3.375 GM In 100 / 100 Dextrose 5% (Minibag+) 100 ML 100 ML @ 25 mls/hr IVPB Q12HR [facility] Rx#: [id number] Oral 0 / 0 120 / 120 Output: Catheter 650 / 650 950 / 950 Other: Meal Breakfast Percent of Meal Consumed 5% Blood Glucose* 78 79 68 - General Appearance General appearance: Present: chronically ill, fatigue EENT: Present: ATNC, mucous membranes dry Neck: Present: no JVD, supple Respiratory: Present: clear (ant bilat) Cardiology: Present: edema (trace LE bilat), normal S1, normal S2 Gastrointestinal: Present: no tenderness, no guarding Integumentary: Present: warm and dry Neurologic: Present: alert and oriented x3 Musculoskeletal: Present: no deformities Psychiatric: Present: mood/affect appropriate - Lab 01/05/17 05:30 01/05/17 05:30 Most recent lab results ABG pH 7.31 pH Units (7.32-7.45) L 01/04/17 06:25 ABG pCO2 34 mmHg (35-45) L 01/04/17 06:25 ABG pO2 140 mmHg (85-104) H 01/04/17 06:25 ABG HCO3 17.1 mEQ/L (21-27) L 01/04/17 06:25 ABG O2 Saturation 99 % (95-98) H 01/04/17 06:25 Calcium 8.5 mg/dL (8.6-10.8) L 01/05/17 05:30 Phosphorus 4.1 mg/dL (2.3-4.7) 01/05/17 05:30 Magnesium 2.0 mg/dL (1.6-2.6) 01/05/17 05:30 Urine Creatinine 91 mg/dL 01/03/17 19:39 Urine Sodium < 20.0 mEq/L 01/03/17 09:12 Urine Total Protein 25 mg/dL (1-14) H 01/03/17 19:39 Consult Discharge Plan - Plan Referrals: Gianna Rendon, COCOA ROOM OPERATOR [Primary Care Provider] - 01/11/17 1:30 pm ()
[2017-01-05] MEDS: Vancomycin 1,250 MG in D5% in Water 250 ML IVPB SCH (12:46)
[2017-01-05 14:33] LABS: ANA IgG by ELISA NONE DETECTED (None Detected)
[2017-01-05] MEDS: Albumin 25% 25gram/100mL 25 GM/100 ML IV.SOLN IVC SCH ×2 (15:03→16:48)
[2017-01-05] MEDS: *HR* Rivaroxaban 15 MG TABLET PO SCH (17:40)
[2017-01-05 20:49] LABS: Alpha 2 Globulin (PEP) 0.84 g/dL (0.48-1.05); Beta Globulin (PEP) 0.66 g/dL (0.48-1.10)
[2017-01-05] MEDS: Insulin DETEMIR 100 UNIT/ML X5UNITS SQ SCH (21:51)
[2017-01-06] MEDS: Insulin LISPRO 300 UNITS/3 ML VIAL SQ SCH ×5 (00:38→20:13)
[2017-01-06] MEDS: *HR* Metoprolol 5 MG/5 ML VIAL IVP SCH ×5 (00:41→23:06)
[2017-01-06 04:10] LABS: Basophils % 0.2 %; Eosinophils # 0.1 K/mcL (0.0-0.6); Eosinophils % 1.3 %; Hematocrit 31.6 % (35.3-44.9); Hemoglobin 10.2 g/dL (11.5-15.4); Immature Granulocytes % 0.4 % (0-4); Lymphocytes # 0.3 K/mcL (0.6-4.6); Lymphocytes % 5.9 %; Mean Corpuscular HGB Conc 32.3 g/dL (31.6-35.5); Mean Corpuscular Hemoglobin 27.2 pg (28.0-33.3); Mean Corpuscular Volume 84.3 fL (83.0-100.0); Mean Platelet Volume 9.9 fL (9.4-12.4); Monocytes # 0.3 K/mcL (0.0-1.3); Platelet Count 159 K/mcL (140-400); Red Blood Count 3.75 M/mcL (3.82-4.97); Segmented Neutrophils % 85.2 %
[2017-01-06 04:25] LABS: Calcium 8.7 mg/dL (8.6-10.8); Potassium 3.3 mEq/L (3.5-4.5)
[2017-01-06] MEDS: *HR* Heparin 5,000 UNIT/ML VIAL SQ SCH ×2 (05:49→17:21)
[2017-01-06] MEDS: Piperacillin/Tazobactam 3.375 GM in D5% in Water (Mini-Bag+) 100 ML IVPB SCH ×2 (05:49→17:22)
[2017-01-06] MEDS ORDERED: Potassium Chloride 20 MEQ, Lidocaine 1% 2 ML in D5% in Water 250 ML IVPB ONE (07:33)
[2017-01-06] MEDS: Furosemide 20 MG/2 ML VIAL IVP SCH (08:28)
[2017-01-06] MEDS: *HR* Rivaroxaban 15 MG TABLET PO SCH (08:29)
[2017-01-06] MEDS: Ranolazine 500 MG TAB.ER.12H PO SCH ×2 (08:29→20:12)
[2017-01-06] MEDS: Isosorbide MONOnitrate (24 HR) 30 MG TAB.ER.24H PO SCH (08:29)
[2017-01-06] MEDS: levETIRAcetam 250 MG in 0.9 % Sodium Chloride 100 ML IVPB SCH ×2 (08:35→20:12)
--- NOTE | 2017-01-06 10:00 | Electrocardiograph Report ---
[place] [id number] Test Date: 2017-01-04 Pat Name: Angelina Cox Department: 110 Room: 2N09 Gender: F Director Fixed Income: : 1940 Requested By: Echo Royal Order Number: [id number] Reading MD: Robert Jeffrey MD Measurements Intervals [place] Rate: 107 P: [place]: 0 QRS: 262 QRSD: 170 T: 71 QT: 401 QTc: 464 Interpretive Statements ATRIAL FIBRILLATION WITH RAPID VENTRICULAR RESPONSE IVCD Electronically Signed On 01-06-2017 9:59:21 EDT by Robert Jeffrey MD
--- NOTE | 2017-01-06 10:33 | Internal Med Progress Note ---
Date of Encounter: 01/06/17 Time of Encounter: 10:30 - Assessment and plan (1) New onset seizure Current Visit: Yes Status: Acute Assessment and plan: likely secondary to metabolic insufficiency and renal failure Neurology consultation appreciated Continue IV Keppra Ativan prn for breakthrough seizures Will continue to closely monitor Mental status improved from previous day-will continue to monitor Physical therapy eval requested (2) Tnkkz-mv-llnzded kidney injury Current Visit: Yes Status: Acute Assessment and plan: Patient has underlying CKD Stage 4 holding IV fluids at this time due to volume overload status Continue low dose diuretic therapy Nephrology input greatly appreciated will continue to closely monitor (3) Congestive heart failure Current Visit: Yes Status: Chronic Assessment and plan: EF of 25-30% clinically presented with volume overload requiring re-initiation of diuretic therapy will monitor I/Os, daily weights fluid restricted diet Cardiology input noted, no acute cardiac intervention recommended at this time however pt will benefit from AICD once stable Qualifiers: Congestive heart failure type: combined Congestive heart failure chronicity : chronic Qualified Code(s): I50.42 - Chronic combined systolic (congestive) and diastolic (congestive) heart failure (4) Pneumonia Current Visit: Yes Status: Acute Assessment and plan: Will continue empiric IV abx therapy Will de-escalate therapy as patient clinically improves follow up blood cultures Qualifiers: Pneumonia type: due to unspecified organism Laterality: unspecified laterality Lung location: unspecified part of lung Qualified Code(s): J18.9 - Pneumonia, unspecified organism (5) Hyponatremia Current Visit: Yes Status: Acute Assessment and plan: can be secondary to hypovolemia hyponatremia given low serum osm noted to be hypotensive s/p volume repletion, Na improving BP within acceptable range at this time will continue to closely monitor (6) Hyperkalemia Current Visit: Yes Status: Resolved Assessment and plan: REsolved noted to be hypokalemic today K supplementation given continue to monitor electrolytes and replace as needed (7) Atrial fibrillation Current Visit: Yes Status: Chronic Assessment and plan: Rate controlled with Carvedilol and anticoagulated with Xarelto restarted PO meds Metoprolol IV for rate control with parameters to hold medication if SBP<120 when unable to tolerate PO meds Xarelto for anticoagulation Qualifiers: Atrial fibrillation type: chronic Qualified Code(s): I48.2 - Chronic atrial fibrillation (8) Ischemic cardiomyopathy Current Visit: Yes Status: Chronic (9) Severe mitral regurgitation Current Visit: Yes Status: Chronic Assessment and plan: further work up as outpatient 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 primary wax pattern assembler (10) DVT prophylaxis Current Visit: Yes Status: Acute Assessment and plan: anticoagulated with Xarelto (11) Diabetes mellitus Current Visit: Yes Status: Acute Assessment and plan: BG within acceptable range will closely monitor FS and blood glucose able to tolerated more PO intake compared to previous day Will continue to monitor Qualifiers: Diabetes mellitus type: type 2 Diabetes mellitus complication status: with unspecified complications Diabetes mellitus terminal operations supervisor insulin use: with terminal operations supervisor use Qualified Code(s): E11.8 - Type 2 diabetes mellitus with unspecified complications; Z79.4 - emt intermediate (current) use of insulin (12) UTI (urinary tract infection) Current Visit: Yes Status: Acute Assessment and plan: Urine cultures prelimin positive for gram positive cocci will continue IV Vancomycin at this time follow up official blood cx. Qualifiers: Urinary tract infection type: site unspecified Hematuria presence: without hematuria Qualified Code(s): N39.0 - Urinary tract infection, site not specified - Subjective Interval history: Patient seen and examined with son present at bedside. Resting in bed and more alert and oriented (oriented to self but not place or time) compared to previous day. Able to communicate and answering questions appropriately. Able to finish more of her meals. - Constitutional Vitals: Temp Pulse Resp BP Pulse Ox 98.0 F 100 16 108/79 99 01/06/17 07:34 01/06/17 07:34 01/06/17 07:34 01/06/17 07:34 01/06/17 07:34 General appearance: Present: cooperative, A&O X 1 (self), morbidly obese, pleasant, no acute distress, answers questions appropriately - Head Head exam: Present: atraumatic, normocephalic - Eye Eye exam: Present: normal appearance, PERRL, conjuntiva pink, sclera anicteric - Respiratory Respiratory exam: Present: CTAB. Absent: accessory muscle use, rales, rhonchi, wheezes - Cardiovascular Cardiovascular exam: Present: RRR, +S1, +S2. Absent: diastolic murmur, gallop, rubs, systolic murmur - GI/Abdominal GI/Abdominal exam: Present: normal bowel sounds, soft, no peritoneal signs. Absent: distended, tenderness - Extremities Exam Extremities exam: Present: pedal edema, warm, radial pulses palpable and symetrical. Absent: calf tenderness, cyanotic - Neurological Exam Neurological exam: Present: alert Internal Medicine: Result - Labs CBC & Chem 7: 01/06/17 04:00 01/06/17 04:00 Labs: Short CBC 01/06/17 Range/Units 04:00 WBC 4.7 (4.3-11.1) K/mcL Hgb 10.2 L (11.5-15.4) g/dL Hct 31.6 L (35.3-44.9) % Plt Count 159 (140-400) K/mcL Neutrophils # 4.0 (1.6-8.9) K/mcL BMP 01/06/17 04:00 Sodium 133 L Potassium 3.3 L Chloride 97 L Carbon Dioxide 24 BUN 42 H Creatinine 2.47 H Glucose 144 H Calcium 8.7 - ABG Interpretation ABG results: ABG ABG pH 7.31 pH Units (7.32-7.45) L 01/04/17 06:25 ABG pCO2 34 mmHg (35-45) L 01/04/17 06:25 ABG pO2 140 mmHg (85-104) H 01/04/17 06:25 ABG O2 Saturation 99 % (95-98) H 01/04/17 06:25 PT/INR, D-dimer PT 14.7 Seconds (9.4-12.1) H 01/04/17 04:46 Consult Discharge Plan - Plan Referrals: Gianna Rendon, CHARLINE [Primary Care Provider] - 01/11/17 1:30 pm ()
--- NOTE | 2017-01-06 10:53 | Electrocardiograph Report ---
[place] [id number] Test Date: 2017-01-04 Pat Name: Angelina Cox Department: 110 Room: 2N09 Gender: F Gis Software Engineer: REBECCA : 1940 Requested By: Echo Royal Order Number: [id number] Reading MD: Robert Jeffrey MD Measurements Intervals [place] Rate: 108 P: [place]: 0 QRS: -20 QRSD: 141 T: 138 QT: 395 QTc: 458 Interpretive Statements ATRIAL FIBRILLATION WITH RAPID VENTRICULAR RESPONSE Poor R wave progression Electronically Signed On 01-06-2017 10:51:18 EDT by Robert Jeffrey MD
[2017-01-06] MEDS: Vancomycin 1,250 MG in D5% in Water 250 ML IVPB SCH (11:42)
--- NOTE | 2017-01-06 14:56 | Nephrology Progress Note ---
Date of Encounter: 01/06/17 Time of Encounter: 14:50 - Assessment and Plan (1) GEORGES (acute kidney injury) Current Visit: Yes Status: Acute SCr slightly better at 2.47, GFR 19. No active indication for DISH CARRIER at this time. Continue to avoid nephrotoxins if possible Continue po fluids UOP noted drastically improved at 2400cc in the past 24 hrs which is great, will monitor Continue vanco by levels if needed (2) CKD (chronic kidney disease), stage IV Current Visit: Yes Status: Acute Baseline GFR appears to be around 27 PTH very elevated >500 with calcitriol started yesterday. Vitamin D WNL Urine shows minimal microalbuminuria, will monitor GIL, SPEP pending results (3) Hyponatremia Current Visit: Yes Status: Acute Sodium stable at 130, no interventions needed at this time. On diuretics, will monitor (4) Hyperkalemia Current Visit: Yes Status: Resolved Resolved Subjective Principal diagnosis: seizure Interval history: Pt seen and examined much more awake and talking and sitting in chair. Son at bedside. No new complaints. Objective - Vital Signs Vital signs: Vital Signs Temp Pulse Resp BP Pulse Ox 01/06/17 11:18 98.2 F 82 16 111/76 100 01/06/17 07:34 98.0 F 100 16 108/79 99 01/06/17 03:20 97.9 F 110 14 122/71 98 01/06/17 00:28 98.7 F 109 15 129/100 98 01/05/17 20:27 98.8 F 95 14 142/87 94 01/05/17 16:05 96.7 F L 74 18 116/74 Intake and Output 01/05/17 01/06/17 01/06/17 23:59 07:59 15:59 Intake Total 412.5 / 412.5 692.5 / 692.5 Output Total 1450 / 1450 800 / 800 Balance -1037.5 / -1037.5 -800 / -800 692.5 / 692.5 Intake: IV Fluids 302.5 / 302.5 452.5 / 452.5 Flexbumin 25 gm In 100 ml 100 / 100 @ 60 mls/hr IVC .Q1H40M [facility] Rx#:[id number] Keppra 250 MG In 0.9 % 102.5 / 102.5 102.5 / 102.5 Sodium Chloride 100 ML @ 400 mls/hr IVPB BID [facility] Rx#:[id number] Zosyn 3.375 GM In 100 / 100 100 / 100 Dextrose 5% (Minibag+) 100 ML 100 ML @ 25 mls/hr IVPB Q12HR [facility] Rx#: [id number] Vancocin 1,250 MG In 250 / 250 Dextrose 5% 250 ML @ 166. 67 mls/hr IVPB Q24H [facility] Rx#:[id number] Oral 110 / 110 240 / 240 Output: Catheter 1450 / 1450 800 / 800 Other: Meal Dinner Lunch Percent of Meal Consumed 60% 50% Weight 104.2 kg Blood Glucose* 104 186 318 Patient Weight 01/06/17 23:59 Weight 104.2 kg - General Appearance General appearance: Present: chronically ill (NAD) EENT: Present: ATNC, mucous membranes moist Neck: Present: no JVD, supple Additional Comments: good areation ant bilat Cardiology: Present: no edema, normal S1, normal S2 Gastrointestinal: Present: no tenderness, no guarding Integumentary: Present: warm and dry Neurologic: Present: no focal deficit Musculoskeletal: Present: no deformities Psychiatric: Present: mood/affect appropriate - Lab 01/07/17 03:55 01/07/17 03:55 Most recent lab results ABG pH 7.31 pH Units (7.32-7.45) L 01/04/17 06:25 ABG pCO2 34 mmHg (35-45) L 01/04/17 06:25 ABG pO2 140 mmHg (85-104) H 01/04/17 06:25 ABG HCO3 17.1 mEQ/L (21-27) L 01/04/17 06:25 ABG O2 Saturation 99 % (95-98) H 01/04/17 06:25 Calcium 8.7 mg/dL (8.6-10.8) 01/06/17 04:00 Phosphorus 4.1 mg/dL (2.3-4.7) 01/05/17 05:30 Magnesium 2.0 mg/dL (1.6-2.6) 01/05/17 05:30 Urine Creatinine 91 mg/dL 01/03/17 19:39 Urine Sodium < 20.0 mEq/L 01/03/17 09:12 Urine Total Protein 25 mg/dL (1-14) H 01/03/17 19:39 Consult Discharge Plan - Plan Referrals: Gianna Rendon CNP [Primary Care Provider] - 01/11/17 1:30 pm ()
[2017-01-06] MEDS: Insulin DETEMIR 100 UNIT/ML X5UNITS SQ SCH (20:11)
[2017-01-07] MEDS ORDERED: *HR* LORazepam 2 MG/ML VIAL IVP ONE (04:10)
[2017-01-07 04:33] LABS: Basophils % 0.5 %; Eosinophils # 0.1 K/mcL (0.0-0.6); Eosinophils % 1.1 %; Hematocrit 38.7 % (35.3-44.9); Immature Granulocytes % 0.7 % (0-4); Lymphocytes # 0.5 K/mcL (0.6-4.6); Lymphocytes % 7.2 %; Mean Corpuscular HGB Conc 31.5 g/dL (31.6-35.5); Mean Corpuscular Hemoglobin 26.6 pg (28.0-33.3); Mean Corpuscular Volume 84.5 fL (83.0-100.0); Mean Platelet Volume 10.2 fL (9.4-12.4); Monocytes # 0.7 K/mcL (0.0-1.3); Monocytes % 9.3 %; Neutrophils # 6.1 K/mcL (1.6-8.9); Nucleated Red Blood Cells 0.5 /100 WBC (0); Platelet Count 240 K/mcL (140-400); Red Blood Count 4.58 M/mcL (3.82-4.97); Red Cell Distribution Width 16.7 % (11.5-14.5); Segmented Neutrophils % 81.2 %
[2017-01-07 04:54] LABS: Calcium 9.3 mg/dL (8.6-10.8); Magnesium 2.2 mg/dL (1.6-2.6); Phosphorous 3.3 mg/dL (2.3-4.7); Potassium 4.3 mEq/L (3.5-4.5)
[2017-01-07] MEDS: *HR* Heparin 5,000 UNIT/ML VIAL SQ SCH ×2 (05:42→16:39)
[2017-01-07] MEDS: *HR* Metoprolol 5 MG/5 ML VIAL IVP SCH ×4 (05:42→23:21)
[2017-01-07] MEDS: Piperacillin/Tazobactam 3.375 GM in D5% in Water (Mini-Bag+) 100 ML IVPB SCH ×2 (05:42→15:31)
[2017-01-07 06:08] LABS: Hemoglobin 12.2 g/dL (11.5-15.4)
[2017-01-07 07:30] LABS: IFE Reflexed IFE Done; Immunoglobulin G 527 mg/dL (768-1632); Immunoglobulin M 46 mg/dL (35-263)
[2017-01-07 07:31] LABS: Immunoglobulin A 62 mg/dL (68-408)
[2017-01-07] MEDS ORDERED: Aminoglycoside Consult 1 EACH MC ONE (07:40)
[2017-01-07] MEDS: Furosemide 20 MG/2 ML VIAL IVP SCH (08:08)
[2017-01-07] MEDS: Isosorbide MONOnitrate (24 HR) 30 MG TAB.ER.24H PO SCH (08:08)
[2017-01-07] MEDS: *HR* Rivaroxaban 15 MG TABLET PO SCH (08:08)
[2017-01-07] MEDS: Ranolazine 500 MG TAB.ER.12H PO SCH ×2 (08:08→21:04)
[2017-01-07] MEDS: Insulin LISPRO 300 UNITS/3 ML VIAL SQ SCH ×4 (08:12→21:13)
[2017-01-07] MEDS: levETIRAcetam 250 MG in 0.9 % Sodium Chloride 100 ML IVPB SCH (09:50)
--- NOTE | 2017-01-07 11:23 | Internal Med Progress Note ---
Date of Encounter: 01/07/17 Time of Encounter: 11:21 - Assessment and plan (1) Atrial fibrillation Current Visit: Yes Status: Chronic Assessment and plan: Rate not controlled despite Carvedilol therapy Added Cardizem 30mg PO q8h given labile BP readings will closely monitor Anticoagulated with Xarelto Metoprolol IV for rate control with parameters to hold medication if SBP<120 when unable to tolerate PO meds Qualifiers: Atrial fibrillation type: chronic Qualified Code(s): I48.2 - Chronic atrial fibrillation (2) New onset seizure Current Visit: Yes Status: Acute Assessment and plan: likely secondary to metabolic insufficiency and renal failure Neurology consultation appreciated Continue IV Keppra Ativan prn for breakthrough seizures Will continue to closely monitor Mental status improved from previous day-will continue to monitor Physical therapy eval requested Out of bed to chair with assistance maintain fall precautions (3) Mlrro-dw-tgpjgmu kidney injury Current Visit: Yes Status: Acute Assessment and plan: Patient has underlying CKD Stage 4 holding IV fluids at this time due to volume overload status Continue low dose diuretic therapy Nephrology input greatly appreciated will continue to closely monitor Renal function gradually improving (4) Pneumonia Current Visit: Yes Status: Acute Assessment and plan: Will continue empiric IV abx therapy Will de-escalate therapy as patient clinically improves follow up blood cultures Qualifiers: Pneumonia type: due to unspecified organism Laterality: unspecified laterality Lung location: unspecified part of lung Qualified Code(s): J18.9 - Pneumonia, unspecified organism (5) Congestive heart failure Current Visit: Yes Status: Chronic Assessment and plan: EF of 25-30% clinically presented with volume overload requiring re-initiation of diuretic therapy will monitor I/Os, daily weights fluid restricted diet Cardiology input noted, no acute cardiac intervention recommended at this time however pt will benefit from AICD once stable Qualifiers: Congestive heart failure type: combined Congestive heart failure chronicity : chronic Qualified Code(s): I50.42 - Chronic combined systolic (congestive) and diastolic (congestive) heart failure (6) Hyponatremia Current Visit: Yes Status: Acute (7) Ischemic cardiomyopathy Current Visit: Yes Status: Chronic (8) Severe mitral regurgitation Current Visit: Yes Status: Chronic Assessment and plan: further work up as outpatient 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 primary 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 pilot (9) DVT prophylaxis Current Visit: Yes Status: Acute Assessment and plan: anticoagulated with Xarelto (10) Diabetes mellitus Current Visit: Yes Status: Acute Assessment and plan: BG within acceptable range will closely monitor FS and blood glucose able to tolerated more PO intake compared to previous day Will continue to monitor Qualifiers: Diabetes mellitus type: type 2 Diabetes mellitus complication status: with unspecified complications Diabetes mellitus manager programming insulin use: with manager programming use Qualified Code(s): E11.8 - Type 2 diabetes mellitus with unspecified complications; Z79.4 - presentation designer (current) use of insulin (11) UTI (urinary tract infection) Current Visit: Yes Status: Acute Assessment and plan: Urine cultures positive for Streptococcous anginosus-Awaiting sensitivities will continue IV Vancomycin at this time Will de-escalate abx therapy as per culture report Qualifiers: Urinary tract infection type: site unspecified Hematuria presence: without hematuria Qualified Code(s): N39.0 - Urinary tract infection, site not specified - Subjective Interval history: Patient seen and examined with daughter present at bedside. Resting in bed and able to respond to questions. Mental status unchanged from previous day. Noted to remain tachycardic despite Carvedilol. No overnight issues reported. - Constitutional Vitals: Temp Pulse Resp BP Pulse Ox 98.4 F 123 36 123/96 97 01/07/17 08:00 01/07/17 08:00 01/07/17 08:00 01/07/17 08:00 01/07/17 08:00 General appearance: Present: cooperative, A&O X 1 (self), morbidly obese, pleasant, no acute distress - Head Head exam: Present: atraumatic, normocephalic - Eye Eye exam: Present: normal appearance, PERRL, conjuntiva pink, sclera anicteric - Respiratory Respiratory exam: Present: CTAB. Absent: accessory muscle use, rales, rhonchi, wheezes - Cardiovascular Cardiovascular exam: Present: irregular rhythm, +S1, +S2, tachycardia - GI/Abdominal GI/Abdominal exam: Present: normal bowel sounds, soft, no peritoneal signs. Absent: distended, tenderness - Extremities Exam Extremities exam: Present: pedal edema, warm, radial pulses palpable and symetrical. Absent: calf tenderness - Neurological Exam Neurological exam: Present: alert Internal Medicine: Result - Labs CBC & Chem 7: 01/07/17 03:55 01/07/17 03:55 Labs: Short CBC 01/07/17 Range/Units 03:55 WBC 7.5 D (4.3-11.1) K/mcL Hgb 12.2 D (11.5-15.4) g/dL Hct 38.7 (35.3-44.9) % Plt Count 240 D (140-400) K/mcL Neutrophils # 6.1 (1.6-8.9) K/mcL BMP 01/07/17 03:55 Sodium 130 L Potassium 4.3 D Chloride 95 L Carbon Dioxide 20 BUN 37 H Creatinine 2.25 H Glucose 209 H Calcium 9.3 - ABG Interpretation ABG results: ABG ABG pH 7.31 pH Units (7.32-7.45) L 01/04/17 06:25 ABG pCO2 34 mmHg (35-45) L 01/04/17 06:25 ABG pO2 140 mmHg (85-104) H 01/04/17 06:25 ABG O2 Saturation 99 % (95-98) H 01/04/17 06:25 PT/INR, D-dimer PT 14.7 Seconds (9.4-12.1) H 01/04/17 04:46 Consult Discharge Plan - Plan Referrals: Gianna Rendon, SENIOR MECHANICAL ESTIMATOR [Primary Care Provider] - 01/11/17 1:30 pm ()
--- NOTE | 2017-01-07 16:57 | Nephrology Progress Note ---
<HeronmiguelCoco Hackett - Last Filed: 01/07/17 17:06> Date of Encounter: 01/07/17 Time of Encounter: 10:00 - Assessment and Plan (1) GEORGES (acute kidney injury) Current Visit: Yes Status: Acute SCr improved at 2.25, GFR 21. No active indication for BAIT MAKER at this time. Continue to avoid nephrotoxins if possible US of kidney showed some renal cysts with preserved kidney sizes but no hydronephrosis Unable to give IVF at this time Intermittent diuretics ok at this time good UOP (2) CKD (chronic kidney disease), stage IV Current Visit: Yes Status: Acute Baseline GFR appears to be around 27 PTH very elevated 581.7 with calcitriol started 01/03. Vitamin D WNL Urine shows minimal microalbuminuria, will monitor GIL negative SPEP shows M spike in gamma region --check urine immunofixation, skeletal survey (3) Hyponatremia Current Visit: Yes Status: Acute continue to monitor (4) Uncontrolled diabetes mellitus Current Visit: Yes Status: Chronic Qualifiers: Diabetes mellitus type: type 2 Diabetes mellitus complication status: with hyperglycemia Diabetes mellitus manager advertising insulin use: with jail use Qualified Code(s): E11.65 - Type 2 diabetes mellitus with hyperglycemia; Z79.4 - email campaign specialist (current) use of insulin Subjective Principal diagnosis: GEORGES Interval history: Patient seen and examined. More alert today. Objective - Vital Signs Vital signs: Vital Signs Temp Pulse Resp BP Pulse Ox 01/07/17 15:45 98.3 F 80 20 126/79 98 01/07/17 11:30 98.4 F 85 24 123/77 99 01/07/17 08:00 98.4 F 123 36 123/96 97 01/07/17 07:48 98.4 F 123 36 123/96 97 01/07/17 03:55 98.3 F 123 26 123/97 97 01/06/17 23:32 97.9 F 01/06/17 23:06 95 18 117/83 98 01/06/17 20:50 97.7 F 94 01/06/17 19:43 16 123/74 100 Intake and Output 01/07/17 01/07/17 01/07/17 07:59 15:59 23:59 Intake Total 0 / 0 622.5 / 622.5 Output Total 200 / 200 1400 / 1400 Balance -200 / -200 -777.5 / -777.5 Intake: IV Fluids 202.5 / 202.5 Keppra 250 MG In 0.9 % 102.5 / 102.5 Sodium Chloride 100 ML @ 400 mls/hr IVPB BID [facility] Rx#:[id number] Zosyn 3.375 GM In 100 / 100 Dextrose 5% (Minibag+) 100 ML 100 ML @ 25 mls/hr IVPB Q12HR [facility] Rx#: [id number] Oral 0 / 0 420 / 420 Output: Urine 700 / 700 Urethral (Juarez) 700 / 700 Catheter 200 / 200 700 / 700 Other: Meal Breakfast Percent of Meal Consumed 5% Weight 103.1 kg Blood Glucose* 189 166 150 Patient Weight 01/07/17 23:59 Weight 103.1 kg - General Appearance General appearance: Present: well-developed, well-nourished, appears started age EENT: Present: mucous membranes moist Neck: Present: supple Respiratory: Present: clear Cardiology: Present: no murmurs, regular rate, regular rhythm, normal S1, normal S2 Additional Comments: follows visually, awake and alert - Lab 01/07/17 03:55 01/07/17 03:55 Most recent lab results ABG pH 7.31 pH Units (7.32-7.45) L 01/04/17 06:25 ABG pCO2 34 mmHg (35-45) L 01/04/17 06:25 ABG pO2 140 mmHg (85-104) H 01/04/17 06:25 ABG HCO3 17.1 mEQ/L (21-27) L 01/04/17 06:25 ABG O2 Saturation 99 % (95-98) H 01/04/17 06:25 Calcium 9.3 mg/dL (8.6-10.8) 01/07/17 03:55 Phosphorus 3.3 mg/dL (2.3-4.7) 01/07/17 03:55 Magnesium 2.2 mg/dL (1.6-2.6) 01/07/17 03:55 Urine Creatinine 91 mg/dL 01/03/17 19:39 Urine Sodium < 20.0 mEq/L 01/03/17 09:12 Urine Total Protein 25 mg/dL (1-14) H 01/03/17 19:39 Consult Discharge Plan - Plan Referrals: Gianna Rendon CNP [Primary Care Provider] - 01/11/17 1:30 pm () <Haley Youssef - Last Filed: 01/07/17 23:16> Date of Encounter: 01/07/17 - Assessment and Plan (1) GEORGES (acute kidney injury) Current Visit: Yes Status: Acute (2) CKD (chronic kidney disease), stage IV Current Visit: Yes Status: Acute (3) Hyponatremia Current Visit: Yes Status: Acute (4) Hyperkalemia Current Visit: Yes Status: Resolved Objective - Vital Signs Vital signs: Vital Signs Temp Pulse Resp BP Pulse Ox 01/07/17 22:05 73 20 91 01/07/17 21:02 97.5 F L 73 20 128/81 91 01/07/17 15:45 98.3 F 80 20 126/79 98 01/07/17 11:30 98.4 F 85 24 123/77 99 01/07/17 08:00 98.4 F 123 36 123/96 97 01/07/17 07:48 98.4 F 123 36 123/96 97 01/07/17 03:55 98.3 F 123 26 123/97 97 01/06/17 23:32 97.9 F Intake and Output 01/07/17 01/07/17 01/07/17 07:59 15:59 23:59 Intake Total 0 / 0 622.5 / 622.5 Output Total 200 / 200 1400 / 1400 Balance -200 / -200 -777.5 / -777.5 Intake: IV Fluids 202.5 / 202.5 Keppra 250 MG In 0.9 % 102.5 / 102.5 Sodium Chloride 100 ML @ 400 mls/hr IVPB BID [facility] Rx#:[id number] Zosyn 3.375 GM In 100 / 100 Dextrose 5% (Minibag+) 100 ML 100 ML @ 25 mls/hr IVPB Q12HR [facility] Rx#: [id number] Oral 0 / 0 420 / 420 Output: Urine 700 / 700 Urethral (Juarez) 700 / 700 Catheter 200 / 200 700 / 700 Other: Meal Breakfast Percent of Meal Consumed 5% Weight 103.1 kg Blood Glucose* 189 166 215 Patient Weight 01/07/17 23:59 Weight 103.1 kg - Lab 01/07/17 03:55 01/07/17 03:55 Most recent lab results ABG pH 7.31 pH Units (7.32-7.45) L 01/04/17 06:25 ABG pCO2 34 mmHg (35-45) L 01/04/17 06:25 ABG pO2 140 mmHg (85-104) H 01/04/17 06:25 ABG HCO3 17.1 mEQ/L (21-27) L 01/04/17 06:25 ABG O2 Saturation 99 % (95-98) H 01/04/17 06:25 Calcium 9.3 mg/dL (8.6-10.8) 01/07/17 03:55 Phosphorus 3.3 mg/dL (2.3-4.7) 01/07/17 03:55 Magnesium 2.2 mg/dL (1.6-2.6) 01/07/17 03:55 Urine Creatinine 91 mg/dL 01/03/17 19:39 Urine Sodium < 20.0 mEq/L 01/03/17 09:12 Urine Total Protein 25 mg/dL (1-14) H 01/03/17 19:39 - Attending Attestation I examined this patient and my medical decision-making was reviewed with the TALENT DEVELOPMENT SPECIALIST/PA/Advanced Practice Nurse/Resident Physician. I agree with the documented findings, disposition and treatment plan as described except to the extent set forth below. Pt seen and examined feeling better daily. Family at bedside asking about discharge and ECF. SCr continues to improve. SPEP positive for monoclonal proteins, will check urine immunofixation and skeletal xray to [facility] for lytic lesions
[2017-01-07] MEDS: levETIRAcetam 250 MG TABLET PO SCH (21:03)
[2017-01-07] MEDS: Insulin DETEMIR 100 UNIT/ML X5UNITS SQ SCH (21:04)
[2017-01-08] MEDS ORDERED: Vancomycin 1,000 MG in D5% in Water 250 ML IVPB ONE (04:00)
[2017-01-08] MEDS: *HR* Metoprolol 5 MG/5 ML VIAL IVP SCH ×3 (06:02→18:38)
[2017-01-08] MEDS: *HR* Heparin 5,000 UNIT/ML VIAL SQ SCH (06:02)
[2017-01-08] MEDS: Piperacillin/Tazobactam 3.375 GM in D5% in Water (Mini-Bag+) 100 ML IVPB SCH (06:10)
[2017-01-08 07:36] LABS: Basophils % 0.2 %; Eosinophils % 0.6 %; Hematocrit 35.7 % (35.3-44.9); Hemoglobin 11.8 g/dL (11.5-15.4); Immature Granulocytes % 0.4 % (0-4); Lymphocytes # 0.5 K/mcL (0.6-4.6); Lymphocytes % 9.5 %; Mean Corpuscular HGB Conc 33.1 g/dL (31.6-35.5); Mean Corpuscular Hemoglobin 27.4 pg (28.0-33.3); Mean Corpuscular Volume 82.8 fL (83.0-100.0); Mean Platelet Volume 10.6 fL (9.4-12.4); Monocytes # 0.7 K/mcL (0.0-1.3); Monocytes % 12.2 %; Neutrophils # 4.2 K/mcL (1.6-8.9); Nucleated Red Blood Cells 0.4 /100 WBC (0); Platelet Count 200 K/mcL (140-400); Red Blood Count 4.31 M/mcL (3.82-4.97); Red Cell Distribution Width 16.3 % (11.5-14.5); Segmented Neutrophils % 77.1 %
[2017-01-08] MEDS: Insulin LISPRO 300 UNITS/3 ML VIAL SQ SCH ×4 (07:42→20:37)
[2017-01-08 07:47] LABS: Calcium 9.4 mg/dL (8.6-10.8); Magnesium 1.9 mg/dL (1.6-2.6); Potassium 3.7 mEq/L (3.5-4.5)
[2017-01-08] MEDS: *HR* Rivaroxaban 15 MG TABLET PO SCH (08:09)
[2017-01-08] MEDS: levETIRAcetam 250 MG TABLET PO SCH ×2 (08:10→20:43)
[2017-01-08] MEDS: Furosemide 20 MG/2 ML VIAL IVP SCH (08:10)
[2017-01-08] MEDS: Isosorbide MONOnitrate (24 HR) 30 MG TAB.ER.24H PO SCH (08:10)
[2017-01-08] MEDS: Ranolazine 500 MG TAB.ER.12H PO SCH ×2 (09:07→20:42)
[2017-01-08] MEDS ORDERED: MethylPREDNISolone 40 MG/ML VIAL ONE (09:34)
[2017-01-08] MEDS ORDERED: Racepinephrine Neb 0.5 ML VIAL IH ONE (09:36)
[2017-01-08] MEDS: MethylPREDNISolone 40 MG/ML VIAL IVP ONE ×2 (09:36→09:39)
[2017-01-08] MEDS ORDERED: Ipratropium/Albuterol Neb 3 ML ONE (09:41)
[2017-01-08] MEDS: Ipratropium/Albuterol Neb 3 ML IH ONE ×2 (09:46→09:57)
[2017-01-08] MEDS ORDERED: MethylPREDNISolone 40 MG/ML VIAL IVP ONE (10:22)
--- NOTE | 2017-01-08 10:25 | Internal Med Progress Note ---
Date of Encounter: 01/08/17 Time of Encounter: 09:30 - Assessment and plan (1) Acute respiratory distress Current Visit: Yes Status: Acute Assessment and plan: Secondary to allergic reaction to the millan brought by family Improved with Methylprednisolone, Racemic epinephrine, and duonebs will continue to closely monitor (2) Atrial fibrillation Current Visit: Yes Status: Chronic Assessment and plan: Rate better controlled with Cardizem continue cardizem and BB Anticoagulated with Xarelto Metoprolol IV for rate control with parameters to hold medication if SBP<120 when unable to tolerate PO meds Qualifiers: Atrial fibrillation type: chronic Qualified Code(s): I48.2 - Chronic atrial fibrillation (3) New onset seizure Current Visit: Yes Status: Acute Assessment and plan: likely secondary to metabolic insufficiency and renal failure Neurology consultation appreciated Continue Keppra PO Ativan prn for breakthrough seizures Will continue to closely monitor Mental status improved from previous day-will continue to monitor Physical therapy eval recommended: SNF, will start discharge planning for placement Out of bed to chair with assistance maintain fall precautions (4) [id number] kidney injury Current Visit: Yes Status: Acute Assessment and plan: Patient has underlying CKD Stage 4 holding IV fluids at this time due to volume overload status Continue low dose diuretic therapy Nephrology input greatly appreciated will continue to closely monitor Renal function gradually improving (5) Pneumonia Current Visit: Yes Status: Acute Assessment and plan: Will continue empiric IV abx therapy Will de-escalate therapy as patient clinically improves follow up blood cultures Qualifiers: Pneumonia type: due to unspecified organism Laterality: unspecified laterality Lung location: unspecified part of lung Qualified Code(s): J18.9 - Pneumonia, unspecified organism (6) Congestive heart failure Current Visit: Yes Status: Chronic Assessment and plan: EF of 25-30% clinically presented with volume overload requiring re-initiation of diuretic therapy will monitor I/Os, daily weights fluid restricted diet Cardiology input noted, no acute cardiac intervention recommended at this time however pt will benefit from AICD once stable Qualifiers: Congestive heart failure type: combined Congestive heart failure chronicity : chronic Qualified Code(s): I50.42 - Chronic combined systolic (congestive) and diastolic (congestive) heart failure (7) Hyponatremia Current Visit: Yes Status: Acute (8) Ischemic cardiomyopathy Current Visit: Yes Status: Chronic (9) Severe mitral regurgitation Current Visit: Yes Status: Chronic Assessment and plan: further work up as outpatient 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 primary personal health coach (10) DVT prophylaxis Current Visit: Yes Status: Acute Assessment and plan: anticoagulated with Xarelto (11) Diabetes mellitus Current Visit: Yes Status: Acute Assessment and plan: BG within acceptable range will closely monitor FS and blood glucose able to tolerated more PO intake compared to previous day Will continue to monitor Qualifiers: Diabetes mellitus type: type 2 Diabetes mellitus complication status: with unspecified complications 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 insulin use: with local company intermodal truck driver use Qualified Code(s): E11.8 - Type 2 diabetes mellitus with unspecified complications; Z79.4 - [facility] (current) use of insulin (12) UTI (urinary tract infection) Current Visit: Yes Status: Acute Assessment and plan: Urine cultures positive for Streptococcous anginosus-Awaiting sensitivities will continue IV Vancomycin at this time Will de-escalate abx therapy as per final culture report Qualifiers: Urinary tract infection type: site unspecified Hematuria presence: without hematuria Qualified Code(s): N39.0 - Urinary tract infection, site not specified - Subjective Interval history: Patient seen and examined with daughter present at bedside. Patient was reported to have an allergic reaction to the millan brought by family. Noted to have diffuse wheezing with stridor. Was given one stat dose of Solumederol 125mg IV, Racemic Epinephrine, and bronchodilators. She responded well to therapy with improvement in her respiratory status. No prior history of such an even has been reported by family. Prior to this even, as per family, patient's mental status had improved. She was able to participate with physical therapy yesterday and was able to get out of bed to chair for a few hours. At this time due to respiratory distress unable to fully assess her mental status, but she is awake. - Constitutional Vitals: Temp Pulse Resp BP Pulse Ox 97.8 F 94 18 116/92 97 01/08/17 07:16 01/08/17 07:16 01/08/17 09:48 01/08/17 07:16 01/08/17 09:48 General appearance: Present: cooperative, A&O X 1, mild distress (respiratory distress), morbidly obese, pleasant - Head Head exam: Present: atraumatic, normocephalic - Eye Eye exam: Present: normal appearance, conjuntiva pink, sclera anicteric - Respiratory Respiratory exam: Present: respiratory distress, stridor, wheezes, tachypnea - Cardiovascular Cardiovascular exam: Present: RRR, +S1, +S2. Absent: diastolic murmur, gallop, rubs, systolic murmur - GI/Abdominal GI/Abdominal exam: Present: normal bowel sounds, soft, no peritoneal signs. Absent: distended, tenderness - Extremities Exam Extremities exam: Present: warm, radial pulses palpable and symetrical. Absent : calf tenderness, cyanotic, pedal edema - Neurological Exam Neurological exam: Present: alert - Psychiatric Psychiatric exam: Present: normal affect, normal mood Internal Medicine: Result - Labs CBC & Chem 7: 01/08/17 07:04 01/08/17 07:04 Labs: Short CBC 01/08/17 Range/Units 07:04 WBC 5.4 (4.3-11.1) K/mcL Hgb 11.8 (11.5-15.4) g/dL Hct 35.7 (35.3-44.9) % Plt Count 200 (140-400) K/mcL Neutrophils # 4.2 (1.6-8.9) K/mcL BMP 01/08/17 07:04 Sodium 128 L Potassium 3.7 Chloride 93 L Carbon Dioxide 22 BUN 38 H Creatinine 2.08 H Glucose 114 H Calcium 9.4 - ABG Interpretation ABG results: ABG ABG pH 7.31 pH Units (7.32-7.45) L 01/04/17 06:25 ABG pCO2 34 mmHg (35-45) L 01/04/17 06:25 ABG pO2 140 mmHg (85-104) H 01/04/17 06:25 ABG O2 Saturation 99 % (95-98) H 01/04/17 06:25 PT/INR, D-dimer PT 14.7 Seconds (9.4-12.1) H 01/04/17 04:46 - Impressions Impressions Bone Osseous Survey 01/07/17 17:02 IMPRESSION: No focal lytic lesions identified. Central vascular congestion and bilateral pleural effusions. Cardiac silhouette enlargement. D/ / 01/07/2017 22:49:26 Pantera Disla MD / nnamdi Interpreting Provider: Pantera R. Naif, MD Consult Discharge Plan - Plan Referrals: Gianna Rendon, CHARLINE [Primary Care Provider] - 01/11/17 1:30 pm ()
--- NOTE | 2017-01-08 13:18 | Nephrology Progress Note ---
Date of Encounter: 01/08/17 Time of Encounter: 13:16 - Assessment and Plan (1) GEORGES (acute kidney injury) Current Visit: Yes Status: Acute SCr improved at 2.08, GFR 23. 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 Continue to avoid nephrotoxins if possible US of kidney showed some renal cysts with preserved kidney sizes but no hydronephrosis Unable to give IVF at this time Intermittent diuretics ok at this time good UOP (2) CKD (chronic kidney disease), stage IV Current Visit: Yes Status: Acute Baseline GFR appears to be around 27 PTH very elevated 581.7 with calcitriol started 01/03. Vitamin D WNL Urine shows minimal microalbuminuria, will monitor GIL negative SPEP shows M spike in gamma region --skeletal survey without focal lytic lesion --urine immunofixation pending (3) Hyponatremia Current Visit: Yes Status: Acute continue to monitor (4) Uncontrolled diabetes mellitus Current Visit: Yes Status: Chronic Qualifiers: Diabetes mellitus type: type 2 Diabetes mellitus complication status: with hyperglycemia Diabetes mellitus chcf insulin use: with intermediate teacher use Qualified Code(s): E11.65 - Type 2 diabetes mellitus with hyperglycemia; Z79.4 - shelter (current) use of insulin Subjective Principal diagnosis: GEORGES Interval history: Patient seen and examined. She had an allergic reaction to millan this morning and is less alert from medications given to treat the allergic reaction. Objective - Vital Signs Vital signs: Vital Signs Temp Pulse Resp BP Pulse Ox 01/08/17 11:25 97.8 F 119 22 111/99 98 01/08/17 09:48 18 97 01/08/17 07:16 97.8 F 94 18 116/92 92 01/08/17 04:41 97.6 F 88 20 130/80 92 01/08/17 04:06 97.6 F 88 20 130/80 92 01/08/17 00:30 89 20 91 01/07/17 23:24 97.4 F L 83 20 130/80 91 01/07/17 22:05 73 20 91 01/07/17 21:02 97.5 F L 73 20 128/81 91 01/07/17 15:45 98.3 F 80 20 126/79 98 Intake and Output 01/07/17 01/08/17 01/08/17 23:59 07:59 15:59 Intake Total 100 / 100 900 / 900 Output Total 500 / 500 100 / 100 400 / 400 Balance -400 / -400 -100 / -100 500 / 500 Intake: IV Fluids 100 / 100 100 / 100 Zosyn 3.375 GM In 100 / 100 100 / 100 Dextrose 5% (Minibag+) 100 ML 100 ML @ 25 mls/hr IVPB Q12HR [facility] Rx#: [id number] Oral 800 / 800 Output: Urine 200 / 200 Urethral (Juarez) 200 / 200 Catheter 500 / 500 100 / 100 200 / 200 Other: Meal Breakfast Percent of Meal Consumed 50% Weight 104 kg Blood Glucose* 215 128 143 Patient Weight 01/08/17 23:59 Weight 104 kg - General Appearance General appearance: Present: well-developed, well-nourished, appears started age EENT: Present: mucous membranes moist Neck: Present: supple Respiratory: Present: clear Cardiology: Present: no murmurs, regular rate, regular rhythm, normal S1, normal S2 Additional Comments: Opens eyes and tracks visually after being awakened Musculoskeletal: Present: no deformities, no erythema - Lab 01/08/17 07:04 01/08/17 07:04 Most recent lab results ABG pH 7.31 pH Units (7.32-7.45) L 01/04/17 06:25 ABG pCO2 34 mmHg (35-45) L 01/04/17 06:25 ABG pO2 140 mmHg (85-104) H 01/04/17 06:25 ABG HCO3 17.1 mEQ/L (21-27) L 01/04/17 06:25 ABG O2 Saturation 99 % (95-98) H 01/04/17 06:25 Calcium 9.4 mg/dL (8.6-10.8) 01/08/17 07:04 Phosphorus 3.0 mg/dL (2.3-4.7) 01/08/17 07:04 Magnesium 1.9 mg/dL (1.6-2.6) 01/08/17 07:04 Urine Creatinine 91 mg/dL 01/03/17 19:39 Urine Sodium < 20.0 mEq/L 01/03/17 09:12 Urine Total Protein 25 mg/dL (1-14) H 01/03/17 19:39 Consult Discharge Plan - Plan Referrals: Gianna Rendon, DENTAL CLAIMS PROCESSOR [Primary Care Provider] - 01/11/17 1:30 pm ()
[2017-01-08] MEDS ORDERED: Ipratropium/Albuterol Neb 3 ML IH ONE (13:51)
[2017-01-08] MEDS: LEVOFLOXACIN 250 MG/50 ML IVPB SCH (15:26)
[2017-01-08] MEDS: Insulin DETEMIR 100 UNIT/ML X5UNITS SQ SCH (20:42)
[2017-01-08] MEDS: Sennosides/Docusate Sodium TABLET PO SCH (20:42)
[2017-01-09] MEDS: *HR* Metoprolol 5 MG/5 ML VIAL IVP SCH ×5 (00:50→23:18)
[2017-01-09 04:33] LABS: Calcium 9.5 mg/dL (8.6-10.8); Magnesium 2.2 mg/dL (1.6-2.6); Potassium 4.4 mEq/L (3.5-4.5)
[2017-01-09 04:35] LABS: Phosphorous 5.4 mg/dL (2.3-4.7)
[2017-01-09 04:52] LABS: Basophils % 0.2 %; Hemoglobin 10.9 g/dL (11.5-15.4); Immature Granulocytes % 0.7 % (0-4); Lymphocytes # 0.5 K/mcL (0.6-4.6); Lymphocytes % 8.3 %; Mean Corpuscular Hemoglobin 26.9 pg (28.0-33.3); Mean Corpuscular Volume 81.5 fL (83.0-100.0); Mean Platelet Volume 10.2 fL (9.4-12.4); Monocytes # 0.5 K/mcL (0.0-1.3); Monocytes % 8.1 %; Neutrophils # 4.7 K/mcL (1.6-8.9); Platelet Count 194 K/mcL (140-400); Red Blood Count 4.05 M/mcL (3.82-4.97); Red Cell Distribution Width 16.5 % (11.5-14.5); Segmented Neutrophils % 82.7 %
[2017-01-09] MEDS: levETIRAcetam 250 MG TABLET PO SCH ×2 (07:50→20:24)
[2017-01-09] MEDS: Isosorbide MONOnitrate (24 HR) 30 MG TAB.ER.24H PO SCH (07:50)
[2017-01-09] MEDS: Ranolazine 500 MG TAB.ER.12H PO SCH ×2 (07:50→20:24)
[2017-01-09] MEDS: Furosemide 20 MG/2 ML VIAL IVP SCH (07:51)
[2017-01-09] MEDS: Insulin LISPRO 300 UNITS/3 ML VIAL SQ SCH ×4 (07:51→20:24)
[2017-01-09] MEDS: *HR* Rivaroxaban 15 MG TABLET PO SCH (07:51)
[2017-01-09] MEDS: Sennosides/Docusate Sodium TABLET PO SCH ×2 (07:51→20:24)
--- NOTE | 2017-01-09 11:10 | Nephrology Progress Note ---
Date of Encounter: 01/09/17 Time of Encounter: 11:08 - Assessment and Plan (1) Hyponatremia Current Visit: Yes Status: Acute Hyponatremia: suspect multifactorial in etiology, from the iCMP, GEORGES on CKD. Progressively worsening, but she remains above 120 so unlikely to be emergent/ symptomatic at this point. I recommend a small dose of Tolvaptan. May further dose tomorrow depending upon her response. Recommend a slow rate of correction of no more than 6-8 mEq in the next 24hr. (2) GEORGES (acute kidney injury) Current Visit: Yes Status: Acute Borderline oliguric and worsening SCr while receiving low dose lasix. Suspect her SCr will continue to worsen (see below comments regarding the hyperphosphatemia). Hyponatremia worsening: see above Continue to follow a renal protective strategy as able. Avoid nephrotoxic agents such as NSAIDs, Bactrim, Contrast. Strict I/Os, daily weights. Thank you. (3) CKD (chronic kidney disease), stage IV Current Visit: Yes Status: Chronic CKD stage IV; followed by me in the clinic since 2014. Hx of known MGUS, which appears stable. (4) New onset seizure Current Visit: Yes Status: Acute As per primary. Not clear if this is actually from a renal etiology. (5) Ischemic cardiomyopathy Current Visit: Yes Status: Chronic As per primary. May be contributing to the hyponatremia. (6) MGUS (monoclonal gammopathy of unknown significance) Current Visit: Yes Status: Chronic See above. Latest SPEPs a relatively stable M-spike. She does have light chains as well. After this hospitalization, I recommend referral to Hematology for further assessment. (7) Acute encephalopathy Current Visit: Yes Status: Acute Suspect multifactorial. She recent Ativan yesterday. When her GEORGES was more pronounced a few days ago, there may have been a uremic component, but currently her renal function is not as severe. (8) Hyperphosphatemia Current Visit: Yes Status: Acute Acute worsening suggesting that her SCr will likely worsen further. She is not eating well d/t the acute encephalopathy so a phos binder would not be helpful at this point. Will monitor. Subjective Principal diagnosis: GEORGES Interval history: Pt was seen/examined. The RN was at bedside, who updated on the interval history. The pt was only arrousable to tactile stimuli and was not able to provide any coherent history. No family members present during rounds today. Yesterday, I had a long conversation with the pt's son. Objective - Vital Signs Vital signs: Vital Signs Temp Pulse Resp BP Pulse Ox 01/09/17 08:04 97.6 F 109 28 123/79 93 01/09/17 03:58 97.5 F L 95 24 133/86 96 01/09/17 00:20 98.3 F 109 32 125/91 97 01/08/17 20:23 97.0 F L 114 30 119/86 93 01/08/17 16:19 97.7 F 123 32 130/95 94 01/08/17 14:17 22 98 01/08/17 11:25 97.8 F 119 22 111/99 98 Intake and Output 01/08/17 01/09/17 01/09/17 23:59 07:59 15:59 Intake Total 120 / 120 Output Total 100 / 100 150 / 150 200 / 200 Balance -100 / -100 -150 / -150 -80 / -80 Intake: Oral 120 / 120 Output: Urine 100 / 100 Urethral (Juarez) 100 / 100 Catheter 100 / 100 150 / 150 100 / 100 Other: Meal Breakfast Percent of Meal Consumed 100% Weight 103.8 kg Blood Glucose* 113 116 Patient Weight 01/09/17 23:59 Weight 103.8 kg - General Appearance General appearance: Present: chronically ill, fatigue, frail Exam: somnolent EENT: Present: ATNC, mucous membranes moist Neck: Present: supple Respiratory: Present: clear Cardiology: Present: edema (only trace ankle edema b/l), normal S1, normal S2 Gastrointestinal: Present: normoactive bowel sounds, no guarding Integumentary: Present: no rash, warm and dry Neurologic: Present: confused, disoriented Musculoskeletal: Present: no erythema, no cyanosis - Lab 01/09/17 04:35 01/09/17 04:00 Most recent lab results ABG pH 7.31 pH Units (7.32-7.45) L 01/04/17 06:25 ABG pCO2 34 mmHg (35-45) L 01/04/17 06:25 ABG pO2 140 mmHg (85-104) H 01/04/17 06:25 ABG HCO3 17.1 mEQ/L (21-27) L 01/04/17 06:25 ABG O2 Saturation 99 % (95-98) H 01/04/17 06:25 Calcium 9.5 mg/dL (8.6-10.8) 01/09/17 04:00 Phosphorus 5.4 mg/dL (2.3-4.7) H D 01/09/17 04:00 Magnesium 2.2 mg/dL (1.6-2.6) 01/09/17 04:00 Urine Creatinine 91 mg/dL 01/03/17 19:39 Urine Sodium < 20.0 mEq/L 01/03/17 09:12 Urine Total Protein 25 mg/dL (1-14) H 01/03/17 19:39 Consult Discharge Plan - Plan Referrals: Gianna Rendon CNP [Primary Care Provider] - 01/16/17 1:30 pm ()
[2017-01-09] MEDS ORDERED: Tolvaptan 15 MG TABLET PO ONE (11:25)
[2017-01-09] MEDS: LEVOFLOXACIN 250 MG/50 ML IVPB SCH (16:04)
--- NOTE | 2017-01-09 16:31 | Internal Med Progress Note ---
Date of Encounter: 01/09/17 Time of Encounter: 13:15 - Assessment and plan (1) Acute respiratory distress Current Visit: Yes Status: Resolved Assessment and plan: Resolved (2) Atrial fibrillation Current Visit: Yes Status: Chronic Assessment and plan: Rate better controlled with Cardizem continue cardizem and BB Anticoagulated with Xarelto Metoprolol IV for rate control with parameters to hold medication if SBP<120 when unable to tolerate PO meds Cardizem increased to PO q6h Qualifiers: Atrial fibrillation type: chronic Qualified Code(s): I48.2 - Chronic atrial fibrillation (3) New onset seizure Current Visit: Yes Status: Acute Assessment and plan: likely secondary to metabolic insufficiency and renal failure Neurology consultation appreciated Continue Keppra PO Ativan prn for breakthrough seizures Will continue to closely monitor Mental status improved from previous day-will continue to monitor Physical therapy eval recommended: SNF, will start discharge planning for placement Out of bed to chair with assistance maintain fall precautions (4) [id number]-[id number] kidney injury Current Visit: Yes Status: Acute Assessment and plan: Patient has underlying CKD Stage 4 Renal function worsening compared to previous day Nephrology consultation greatly appreciated noted to have worsening hyponatremia, started on tolvaptan as per nephro will closely monitor (5) Pneumonia Current Visit: Yes Status: Acute Assessment and plan: Will continue empiric IV abx therapy blood cultures noted will continue levaquin to continue therapy for a total of 7 days Qualifiers: Pneumonia type: due to unspecified organism Laterality: unspecified laterality Lung location: unspecified part of lung Qualified Code(s): J18.9 - Pneumonia, unspecified organism (6) Congestive heart failure Current Visit: Yes Status: Chronic Assessment and plan: EF of 25-30% clinically presented with volume overload requiring re-initiation of diuretic therapy will monitor I/Os, daily weights fluid restricted diet Cardiology input noted, no acute cardiac intervention recommended at this time however pt will benefit from AICD once stable Qualifiers: Congestive heart failure type: combined Congestive heart failure chronicity : chronic Qualified Code(s): I50.42 - Chronic combined systolic (congestive) and diastolic (congestive) heart failure (7) Hyponatremia Current Visit: Yes Status: Acute (8) Ischemic cardiomyopathy Current Visit: Yes Status: Chronic (9) Severe mitral regurgitation Current Visit: Yes Status: Chronic Assessment and plan: further work up 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 (10) DVT prophylaxis Current Visit: Yes Status: Acute Assessment and plan: anticoagulated with Xarelto (11) Diabetes mellitus Current Visit: Yes Status: Acute Assessment and plan: BG within acceptable range will closely monitor FS and blood glucose Will continue to monitor Qualifiers: Diabetes mellitus type: type 2 Diabetes mellitus complication status: with unspecified complications Diabetes mellitus meterman insulin use: with prison use Qualified Code(s): E11.8 - Type 2 diabetes mellitus with unspecified complications; Z79.4 - FDC (current) use of insulin (12) UTI (urinary tract infection) Current Visit: Yes Status: Acute Assessment and plan: Urine cultures positive for Streptococcous anginosus will continue Levaquin Qualifiers: Urinary tract infection type: site unspecified Hematuria presence: without hematuria Qualified Code(s): N39.0 - Urinary tract infection, site not specified - Subjective Interval history: Patient seen and examined. Resting in bed, mental status and respiratory status improved from previous day. NOted to have persistent tachycardia with Afib, rate poorly controlled, Will increase cardizem to PO q8h. - Constitutional Vitals: Temp Pulse Resp BP Pulse Ox 97.4 F L 72 16 125/86 95 01/09/17 15:25 01/09/17 16:12 01/09/17 15:25 01/09/17 16:12 01/09/17 15:25 General appearance: Present: cooperative, A&O X 2, morbidly obese, pleasant, no acute distress - Head Head exam: Present: atraumatic, normocephalic - Respiratory Respiratory exam: Present: CTAB. Absent: accessory muscle use, rales, rhonchi, wheezes - Cardiovascular Cardiovascular exam: Present: irregular rhythm, +S1, +S2, tachycardia - GI/Abdominal GI/Abdominal exam: Present: normal bowel sounds, soft, no peritoneal signs. Absent: distended, tenderness - Extremities Exam Extremities exam: Present: pedal edema, warm, radial pulses palpable and symetrical. Absent: calf tenderness - Neurological Exam Neurological exam: Present: alert Internal Medicine: Result - Labs CBC & Chem 7: 01/09/17 04:35 01/09/17 04:00 Labs: Short CBC 01/09/17 Range/Units 04:35 WBC 5.7 (4.3-11.1) K/mcL Hgb 10.9 L (11.5-15.4) g/dL Hct 33.0 L (35.3-44.9) % Plt Count 194 (140-400) K/mcL Neutrophils # 4.7 (1.6-8.9) K/mcL BMP 01/09/17 04:00 Sodium 127 L Potassium 4.4 Chloride 92 L Carbon Dioxide 20 BUN 48 H D Creatinine 2.63 H Glucose 122 H Calcium 9.5 - ABG Interpretation ABG results: ABG ABG pH 7.31 pH Units (7.32-7.45) L 01/04/17 06:25 ABG pCO2 34 mmHg (35-45) L 01/04/17 06:25 ABG pO2 140 mmHg (85-104) H 01/04/17 06:25 ABG O2 Saturation 99 % (95-98) H 01/04/17 06:25 PT/INR, D-dimer PT 14.7 Seconds (9.4-12.1) H 01/04/17 04:46 - Impressions Impressions Pulmonary Perfusion Imaging 01/08/17 15:22 IMPRESSION: 1. Intermediate probability for pulmonary embolism. (20%-80%) 2. No perfusion abnormalities to indicate V/Q mismatch. However, ventilation abnormalities correspond to abnormal chest radiograph. D/ / Ismael Mcdonough MD / Ismael Mcdonough MD Interpreting Provider: Ismael Mcdonough MD Chest X-Ray 01/08/17 16:59 IMPRESSION: Diffuse airspace disease in the right lung which may represent pneumonia versus asymmetric edema D/ / Mahendra Vaca MD / Mahendra Vaca MD Interpreting Provider: Mahendra Vaca MD - VTE Documentation of Mechanical Device: Intermittent pneumatic compression device Consult Discharge Plan - Plan Referrals: Gianna Rendon, [employer] [Primary Care Provider] - 01/16/17 1:30 pm ()
[2017-01-09] MEDS: Insulin DETEMIR 100 UNIT/ML X5UNITS SQ SCH (20:25)
[2017-01-09 23:22] LABS: Bilirubin,Urine Negative (Negative); Blood,Urine Moderate (Negative); Clarity,Urine Cloudy (Clear); Color,Urine Dark Yellow (Yellow); Glucose,Urine (UA) Normal (Normal); Ketones,Urine Negative (Negative); Leukocyte Esterase,Urine Trace (Negative); Nitrite,Urine Negative (Negative); Protein,Urine 30 mg/dL (Neg-Trace); Specific Gravity,Urine 1.015 (1.010-1.025); Urobilinogen,Urine Normal (Normal)
[2017-01-09 23:24] LABS: Bacteria,Urine None Seen per hpf (None-Few); Hyaline Casts,Urine Few per lpf (None-Few); Squamous Epithelial Cell,Urine Many per lpf (None-Few)
[2017-01-09 23:26] LABS: Potassium,Urine 26.3 mEq/L; Sodium, Urine < 20.0 mEq/L
[2017-01-09 23:40] LABS: Osmolality,Urine 277 mOsm/kg (300-1090)
[2017-01-10 00:55] LABS: ABG HCO3 23.8 mEQ/L (21-27); ABG Oxygen Saturation 97 % (95-98); ABG PCO2 35 mmHg (35-45); ABG PH 7.44 pH Units (7.32-7.45); ABG PO2 84 mmHg (85-104); ABG TCO2 24.9 mEq/L (20-26)
[2017-01-10 00:56] LABS: Blood Gas FiO2 36 %; Blood Gas Liter Flow 4 L/MIN
[2017-01-10 04:07] LABS: Basophils % 0.1 %; Hematocrit 34.4 % (35.3-44.9); Hemoglobin 11.6 g/dL (11.5-15.4); Immature Granulocytes % 0.6 % (0-4); Lymphocytes # 0.4 K/mcL (0.6-4.6); Lymphocytes % 2.8 %; Mean Corpuscular HGB Conc 33.7 g/dL (31.6-35.5); Mean Corpuscular Hemoglobin 27.6 pg (28.0-33.3); Mean Corpuscular Volume 81.9 fL (83.0-100.0); Monocytes % 6.9 %; Neutrophils # 12.9 K/mcL (1.6-8.9); Platelet Count 226 K/mcL (140-400); Segmented Neutrophils % 89.6 %
[2017-01-10 04:18] LABS: Calcium 9.6 mg/dL (8.6-10.8); Magnesium 2.2 mg/dL (1.6-2.6); Phosphorous 4.5 mg/dL (2.3-4.7)
[2017-01-10] MEDS: *HR* Metoprolol 5 MG/5 ML VIAL IVP SCH ×3 (05:45→17:42)
[2017-01-10] MEDS: Insulin LISPRO 300 UNITS/3 ML VIAL SQ SCH ×4 (07:46→21:24)
[2017-01-10] MEDS: levETIRAcetam 250 MG TABLET PO SCH ×2 (07:55→21:23)
[2017-01-10] MEDS: Sennosides/Docusate Sodium TABLET PO SCH ×2 (07:57→21:23)
[2017-01-10] MEDS: Isosorbide MONOnitrate (24 HR) 30 MG TAB.ER.24H PO SCH (07:58)
[2017-01-10] MEDS: *HR* Rivaroxaban 15 MG TABLET PO SCH (07:58)
[2017-01-10] MEDS: Ranolazine 500 MG TAB.ER.12H PO SCH ×2 (07:59→21:23)
[2017-01-10] MEDS: Furosemide 20 MG TABLET PO SCH (08:00)
--- NOTE | 2017-01-10 08:47 | Nephrology Progress Note ---
Date of Encounter: 01/10/17 Time of Encounter: 08:45 - Assessment and Plan (1) Hyponatremia Current Visit: Yes Status: Acute Hyponatremia: suspect multifactorial in etiology, from the iCMP, GEORGES on CKD. Held steady (did not worsen) with small dose of Tolvaptan yesterday. Continue small dose. (2) GEORGES (acute kidney injury) Current Visit: Yes Status: Acute SCr did not continue to worsen. Slightly improved from yesterday's elevation. Continue to follow a renal protective strategy as able. Avoid nephrotoxic agents such as NSAIDs, Bactrim, Contrast. Strict I/Os, daily weights. (3) CKD (chronic kidney disease), stage IV Current Visit: Yes Status: Chronic followed by Dr. Montiel outpatient hx of known MGUS, which appears stable (4) New onset seizure Current Visit: Yes Status: Acute (5) Ischemic cardiomyopathy Current Visit: Yes Status: Chronic may be contributing to to hyponatremia management per primary team (6) MGUS (monoclonal gammopathy of unknown significance) Current Visit: Yes Status: Chronic See above. Latest SPEPs a relatively stable M-spike. She does have light chains as well. After this hospitalization, recommend referral to Hematology for further assessment. (7) Hyperphosphatemia Current Visit: Yes Status: Acute improved today, but on the high end of normal expect patient's oral intake to improve today with her increased alertness Subjective Principal diagnosis: GEORGES Interval history: Patient seen and examined, much more awake and alert this morning. Objective - Vital Signs Vital signs: Vital Signs Temp Pulse Resp BP Pulse Ox 01/10/17 07:21 97.6 F 87 20 126/94 100 01/10/17 03:57 97.5 F L 86 22 119/84 100 01/10/17 02:12 60 106/65 01/10/17 00:20 97.6 F 67 28 92/66 94 01/10/17 00:10 62 01/09/17 23:06 96.8 F L 80 24 112/69 96 01/09/17 20:50 97.7 F 97 22 133/98 98 01/09/17 16:12 72 125/86 01/09/17 15:25 97.4 F L 76 16 118/91 95 01/09/17 11:27 97.5 F L 105 20 142/72 95 01/09/17 11:06 97.3 F L 86 16 156/105 96 Intake and Output 01/09/17 01/10/17 01/10/17 23:59 07:59 15:59 Intake Total 60 / 60 Output Total 545 / 545 250 / 250 Balance -485 / -485 -250 / -250 Intake: Oral 60 / 60 Output: Urine 425 / 425 Urethral (Juarez) 425 / 425 Catheter 120 / 120 250 / 250 Other: Weight 105.5 kg Blood Glucose* 155 109 Patient Weight 01/10/17 23:59 Weight 105.5 kg - General Appearance General appearance: Present: well-developed, well-nourished, appears started age EENT: Present: mucous membranes moist Neck: Present: supple Respiratory: Present: clear Cardiology: Present: no murmurs, no edema, regular rate, regular rhythm, normal S1, normal S2 Gastrointestinal: Present: normoactive bowel sounds, no tenderness Integumentary: Present: no rash, warm and dry Neurologic: Present: no focal deficit, alert and oriented x3, CN 3-12 intact Musculoskeletal: Present: no deformities, no erythema, no cyanosis, no clubbing Psychiatric: Present: mood/affect appropriate, cooperative - Lab 01/10/17 03:50 01/10/17 03:50 Most recent lab results ABG pH 7.44 pH Units (7.32-7.45) 01/10/17 00:40 ABG pCO2 35 mmHg (35-45) 01/10/17 00:40 ABG pO2 84 mmHg (85-104) L 01/10/17 00:40 ABG HCO3 23.8 mEQ/L (21-27) 01/10/17 00:40 ABG O2 Saturation 97 % (95-98) 01/10/17 00:40 Calcium 9.6 mg/dL (8.6-10.8) 01/10/17 03:50 Phosphorus 4.5 mg/dL (2.3-4.7) 01/10/17 03:50 Magnesium 2.2 mg/dL (1.6-2.6) 01/10/17 03:50 Urine Creatinine 91 mg/dL 01/03/17 19:39 Urine Sodium < 20.0 mEq/L 01/09/17 22:50 Urine Total Protein 25 mg/dL (1-14) H 01/03/17 19:39 - VTE Documentation of Mechanical Device: Intermittent pneumatic compression device Consult Discharge Plan - Plan Referrals: Gianna Rendon CNP [Primary Care Provider] - 01/16/17 1:30 pm ()
[2017-01-10] MEDS ORDERED: Tolvaptan 15 MG TABLET PO ONE (10:46)
[2017-01-10] MEDS: Diltiazem CD (24hr) 180 MG CAPSULE PO SCH (11:49)
[2017-01-10 12:03] LABS: Urine Collection Duration RANDOM hr; Urine Collection Volume RANDOM mL
[2017-01-10] MEDS: LEVOFLOXACIN 250 MG/50 ML IVPB SCH (15:25)
[2017-01-10 15:29] LABS: Basophils % 0.1 %; Hematocrit 33.5 % (35.3-44.9); Hemoglobin 11.1 g/dL (11.5-15.4); Immature Granulocytes % 0.7 % (0-4); Lymphocytes # 0.5 K/mcL (0.6-4.6); Lymphocytes % 3.1 %; Mean Corpuscular HGB Conc 33.1 g/dL (31.6-35.5); Mean Corpuscular Hemoglobin 27.1 pg (28.0-33.3); Mean Corpuscular Volume 81.9 fL (83.0-100.0); Mean Platelet Volume 9.6 fL (9.4-12.4); Neutrophils # 13.2 K/mcL (1.6-8.9); Platelet Count 220 K/mcL (140-400); Red Blood Count 4.09 M/mcL (3.82-4.97); Segmented Neutrophils % 89.1 %
--- NOTE | 2017-01-10 15:51 | Internal Med Progress Note ---
Date of Encounter: 01/10/17 Time of Encounter: 15:00 - Assessment and plan (1) Acute respiratory distress Current Visit: Yes Status: Resolved Assessment and plan: Resolved (2) Atrial fibrillation Current Visit: Yes Status: Chronic Assessment and plan: Rate better controlled with Cardizem continue cardizem and BB Anticoagulated with Xarelto Metoprolol IV for rate control with parameters to hold medication if SBP<120 when unable to tolerate PO meds Changed cardizem to 180mg PO qd, however patient had already received the morning dose of Cardizem 30mg, will likely discharge the patient on Cardizem 240mg PO qd. Qualifiers: Atrial fibrillation type: chronic Qualified Code(s): I48.2 - Chronic atrial fibrillation (3) New onset seizure Current Visit: Yes Status: Acute Assessment and plan: likely secondary to metabolic insufficiency and renal failure Neurology consultation appreciated Continue Keppra PO Will continue to closely monitor Mental status improved from previous day-will continue to monitor Pt to follow up with neurology after discharge Physical therapy eval recommended: SNF, will start discharge planning for placement Out of bed to chair with assistance maintain fall precautions (4) Danip-gt-vtllmab kidney injury Current Visit: Yes Status: Acute Assessment and plan: Patient has underlying CKD Stage 4 Renal function worsening compared to previous day Nephrology consultation greatly appreciated noted to have worsening hyponatremia, continue tolvaptan as per nephro will closely monitor (5) Pneumonia Current Visit: Yes Status: Acute Assessment and plan: Will continue empiric IV abx therapy blood cultures noted will continue levaquin to continue therapy for a total of 7 days Qualifiers: Pneumonia type: due to unspecified organism Laterality: unspecified laterality Lung location: unspecified part of lung Qualified Code(s): J18.9 - Pneumonia, unspecified organism (6) Congestive heart failure Current Visit: Yes Status: Chronic Assessment and plan: EF of 25-30% continue diuretic support fluid restricted diet Cardiology input noted, no acute cardiac intervention recommended at this time however pt will benefit from AICD once stable Qualifiers: Congestive heart failure type: combined Congestive heart failure chronicity : chronic Qualified Code(s): I50.42 - Chronic combined systolic (congestive) and diastolic (congestive) heart failure (7) Hyponatremia Current Visit: Yes Status: Acute (8) Ischemic cardiomyopathy Current Visit: Yes Status: Chronic (9) Severe mitral regurgitation Current Visit: Yes Status: Chronic Assessment and plan: further work up as outpatient 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 (10) DVT prophylaxis Current Visit: Yes Status: Acute Assessment and plan: anticoagulated with Xarelto (11) Diabetes mellitus Current Visit: Yes Status: Acute Assessment and plan: BG within acceptable range will closely monitor FS and blood glucose Will continue to monitor Qualifiers: Diabetes mellitus type: type 2 Diabetes mellitus complication status: with unspecified complications Diabetes mellitus custodial insulin use: with custodial use Qualified Code(s): E11.8 - Type 2 diabetes mellitus with unspecified complications; Z79.4 - predatory animal exterminator (current) use of insulin (12) UTI (urinary tract infection) Current Visit: Yes Status: Acute Assessment and plan: Urine cultures positive for Streptococcous anginosus will continue Levaquin Qualifiers: Urinary tract infection type: site unspecified Hematuria presence: without hematuria Qualified Code(s): N39.0 - Urinary tract infection, site not specified - Subjective Interval history: Patient seen and examined. Resting in bed and mental status more awake and alert. Able to actively participate in conversation. Rate better controlled. Reported to be hypoxic overnight with lethargic mental status. No such episodes noted today. If remains stable overnight, likely d/c in am to rehab - Constitutional Vitals: Temp Pulse Resp BP Pulse Ox 97.6 F 87 20 126/94 100 01/10/17 07:21 01/10/17 07:21 01/10/17 07:21 01/10/17 07:21 01/10/17 07:21 General appearance: Present: cooperative, A&O X 2, morbidly obese, pleasant, no acute distress, answers questions appropriately - Head Head exam: Present: atraumatic, normocephalic - Eye Eye exam: Present: conjuntiva pink, sclera anicteric - Respiratory Respiratory exam: Present: CTAB. Absent: accessory muscle use, rales, rhonchi, wheezes - Cardiovascular Cardiovascular exam: Present: RRR, +S1, +S2. Absent: diastolic murmur, gallop, rubs, systolic murmur - GI/Abdominal GI/Abdominal exam: Present: normal bowel sounds, soft, no peritoneal signs. Absent: distended, tenderness - Extremities Exam Extremities exam: Present: warm, radial pulses palpable and symetrical. Absent : calf tenderness, pedal edema - Neurological Exam Neurological exam: Present: alert Internal Medicine: Result - Labs CBC & Chem 7: 01/10/17 15:20 01/10/17 03:50 Labs: Short CBC 01/10/17 01/10/17 Range/Units 03:50 15:20 WBC 14.4 H D 14.8 H (4.3-11.1) K/mcL Hgb 11.6 11.1 L (11.5-15.4) g/dL Hct 34.4 L 33.5 L (35.3-44.9) % Plt Count 226 220 (140-400) K/mcL Neutrophils # 12.9 H 13.2 H (1.6-8.9) K/mcL BMP 01/10/17 03:50 Sodium 128 L Potassium 4.0 Chloride 92 L Carbon Dioxide 20 BUN 61 H D Creatinine 2.58 H Glucose 136 H Calcium 9.6 Urine 01/09/17 Range/Units 22:50 Urine Color Dark Yellow (Yellow) Urine Clarity Cloudy A (Clear) Urine pH 6.0 (5.0-8.0) pH Units Ur Specific [place] 1.015 (1.010-1.025) Urine Protein 30 H (Neg-Trace) mg/dL Urine Glucose (UA) Normal (Normal) mg/dL - ABG Interpretation ABG results: ABG ABG pH 7.44 pH Units (7.32-7.45) 01/10/17 00:40 ABG pCO2 35 mmHg (35-45) 01/10/17 00:40 ABG pO2 84 mmHg (85-104) L 01/10/17 00:40 ABG O2 Saturation 97 % (95-98) 01/10/17 00:40 PT/INR, D-dimer PT 14.7 Seconds (9.4-12.1) H 01/04/17 04:46 - Impressions Impressions Chest X-Ray 01/10/17 05:00 IMPRESSION: Grossly stable bilateral airspace disease. D/ / Ta Dickson MD / Ta Dickson MD Interpreting Provider: Ta Dickson MD - VTE Documentation of Mechanical Device: Intermittent pneumatic compression device Consult Discharge Plan - Plan Instructions: Heart Failure (DC), Atrial Fibrillation (DC), Urinary Tract Infection in Women (DC), Fall Prevention (DC), Pneumonia (DC) Referrals: Gianna Rendon CNP [Primary Care Provider] - 01/16/17 1:30 pm ()
[2017-01-10] MEDS: Insulin DETEMIR 100 UNIT/ML X5UNITS SQ SCH (21:24)
[2017-01-11 04:15] LABS: Basophils % 0.1 %; Eosinophils % 0.2 %; Hematocrit 36.1 % (35.3-44.9); Hemoglobin 11.8 g/dL (11.5-15.4); Immature Granulocytes % 1.1 % (0-4); Lymphocytes # 0.4 K/mcL (0.6-4.6); Lymphocytes % 3.1 %; Mean Corpuscular HGB Conc 32.7 g/dL (31.6-35.5); Mean Corpuscular Hemoglobin 26.9 pg (28.0-33.3); Mean Corpuscular Volume 82.2 fL (83.0-100.0); Mean Platelet Volume 9.7 fL (9.4-12.4); Monocytes # 0.9 K/mcL (0.0-1.3); Monocytes % 8.1 %; Neutrophils # 9.7 K/mcL (1.6-8.9); Nucleated Red Blood Cells 0.2 /100 WBC (0); Platelet Count 236 K/mcL (140-400); Red Blood Count 4.39 M/mcL (3.82-4.97); Red Cell Distribution Width 17.1 % (11.5-14.5); Segmented Neutrophils % 87.4 %
[2017-01-11 04:47] LABS: Calcium 9.2 mg/dL (8.6-10.8); Magnesium 2.1 mg/dL (1.6-2.6); Phosphorous 3.9 mg/dL (2.3-4.7); Potassium 3.7 mEq/L (3.5-4.5)
[2017-01-11] MEDS: *HR* Metoprolol 5 MG/5 ML VIAL IVP SCH (06:10)
[2017-01-11 06:44] LABS: Sodium, Urine < 20.0 mEq/L
[2017-01-11 07:26] LABS: Osmolality,Urine 148 mOsm/kg (300-1090)
--- NOTE | 2017-01-11 09:02 | Nephrology Progress Note ---
Date of Encounter: 01/11/17 Time of Encounter: 09:00 - Assessment and Plan (1) Hyponatremia Current Visit: Yes Status: Acute Hyponatremia has improved to 130: cont a fluid restriction of 1.5L per day. Etiology was both from her iCMP/hypervolemia (volume status is improved on exam ) and GEORGES, which has also continued to correct AMS is improving as well. Agree with rehab after this discharge. I've seen her in the clinic since 2014; I recommend she follow up in about 2-6 weeks. Thank you (2) GEORGES (acute kidney injury) Current Visit: Yes Status: Acute Borderline oliguric and originally quite severe, but has slowly improved during this hospitalization without needing HD. Continue to follow a renal protective strategy as able. Avoid nephrotoxic agents such as NSAIDs, Bactrim, Contrast. Strict I/Os, daily weights. (3) CKD (chronic kidney disease), stage IV Current Visit: Yes Status: Chronic CKD stage IV; followed by me in the clinic since 2014. Hx of known MGUS, which appears stable. (4) New onset seizure Current Visit: Yes Status: Acute As per primary. Not clear if this is actually from a renal etiology. (5) Ischemic cardiomyopathy Current Visit: Yes Status: Chronic As per primary. May be contributing to the hyponatremia. (6) MGUS (monoclonal gammopathy of unknown significance) Current Visit: Yes Status: Chronic See above. Latest SPEPs a relatively stable M-spike. She does have light chains as well. After this hospitalization, I recommend referral to Hematology for further assessment. (7) Acute encephalopathy Current Visit: Yes Status: Acute Suspect multifactorial, improving. (8) Hyperphosphatemia Current Visit: Yes Status: Resolved Resolved with improving SCr and hence improved renal clearance. Subjective Principal diagnosis: GEORGES Interval history: Pt was seen/examined. She reported feeling better and has plans for [facility]. She did not affirm N/V/D, but did report constipation and upper abd "tightness" that started yesterday: not worsened with palpation or exertion or deep breathing. Passing gas, she affirmed. Her RN reported the pt has had constipation. Objective - Vital Signs Vital signs: Vital Signs Temp Pulse Resp BP Pulse Ox 01/11/17 07:44 97.3 F L 68 18 129/82 96 01/11/17 03:20 97.6 F 84 18 130/90 96 01/11/17 00:32 97.3 F L 78 16 105/70 97 01/10/17 20:58 97.3 F L 62 20 124/95 97 01/10/17 16:08 97.8 F 92 18 114/79 95 01/10/17 12:05 97.6 F 18 Intake and Output 01/10/17 01/11/17 01/11/17 23:59 07:59 15:59 Intake Total 480 / 480 120 / 120 Output Total 825 / 825 700 / 700 Balance -345 / -345 -580 / -580 Intake: Oral 480 / 480 120 / 120 Output: Catheter 825 / 825 700 / 700 Other: Stool Size Small Stool Consistency formed Blood Glucose* 212 140 - General Appearance General appearance: Present: chronically ill, fatigue, frail EENT: Present: ATNC, PERRL, mucous membranes moist Neck: Present: supple Respiratory: Present: clear Cardiology: Present: no edema, normal S1, normal S2 Gastrointestinal: Present: no tenderness, no guarding Integumentary: Present: no rash, warm and dry Neurologic: Present: no focal deficit, no asterixis, alert and oriented x3 Musculoskeletal: Present: no deformities, no erythema, no cyanosis Psychiatric: Present: mood/affect appropriate, cooperative - Lab 01/11/17 04:00 01/11/17 04:00 Most recent lab results ABG pH 7.44 pH Units (7.32-7.45) 01/10/17 00:40 ABG pCO2 35 mmHg (35-45) 01/10/17 00:40 ABG pO2 84 mmHg (85-104) L 01/10/17 00:40 ABG HCO3 23.8 mEQ/L (21-27) 01/10/17 00:40 ABG O2 Saturation 97 % (95-98) 01/10/17 00:40 Calcium 9.2 mg/dL (8.6-10.8) 01/11/17 04:00 Phosphorus 3.9 mg/dL (2.3-4.7) 01/11/17 04:00 Magnesium 2.1 mg/dL (1.6-2.6) 01/11/17 04:00 Urine Creatinine 91 mg/dL 01/03/17 19:39 Urine Sodium < 20.0 mEq/L 01/11/17 05:53 Urine Total Protein SEE NOTE mg/d (10-140) 01/08/17 05:55 - VTE Documentation of Mechanical Device: Intermittent pneumatic compression device Consult Discharge Plan - Plan Instructions: Heart Failure (DC), Atrial Fibrillation (DC), Urinary Tract Infection in Women (DC), Fall Prevention (DC), Pneumonia (DC) Referrals: Gianna Rendon CNP [Primary Care Provider] - 01/16/17 1:30 pm ()
[2017-01-11] MEDS: Insulin LISPRO 300 UNITS/3 ML VIAL SQ SCH ×2 (09:05→11:43)
[2017-01-11] MEDS: Sennosides/Docusate Sodium TABLET PO SCH (09:12)
[2017-01-11] MEDS: *HR* Rivaroxaban 15 MG TABLET PO SCH (09:12)
[2017-01-11] MEDS: Isosorbide MONOnitrate (24 HR) 30 MG TAB.ER.24H PO SCH (09:12)
[2017-01-11] MEDS: Furosemide 20 MG TABLET PO SCH (09:13)
[2017-01-11] MEDS: Diltiazem CD (24hr) 180 MG CAPSULE PO SCH (09:13)
[2017-01-11] MEDS: levETIRAcetam 250 MG TABLET PO SCH (09:13)
[2017-01-11] MEDS: Ranolazine 500 MG TAB.ER.12H PO SCH (09:14)
--- NOTE | 2017-01-11 11:22 | Discharge Summary ---
Date of Encounter: 01/11/17 Time of Encounter: 11:20 - Discharge Diagnosis (1) Acute respiratory distress Priority: Primary Status: Resolved (2) Atrial fibrillation Priority: Secondary Status: Chronic Qualifiers: Atrial fibrillation type: chronic Qualified Code(s): I48.2 - Chronic atrial fibrillation (3) New onset seizure Priority: Primary Status: Acute (4) Afwow-qv-eecoklw kidney injury Priority: Primary Status: Acute (5) Pneumonia Priority: Secondary Status: Acute Qualifiers: Pneumonia type: due to unspecified organism Laterality: unspecified laterality Lung location: unspecified part of lung Qualified Code(s): J18.9 - Pneumonia, unspecified organism (6) Congestive heart failure Priority: Secondary Status: Chronic Qualifiers: Congestive heart failure type: combined Congestive heart failure chronicity : chronic Qualified Code(s): I50.42 - Chronic combined systolic (congestive) and diastolic (congestive) heart failure (7) Hyponatremia Priority: Secondary Status: Chronic (8) Ischemic cardiomyopathy Priority: Secondary Status: Chronic (9) Severe mitral regurgitation Priority: Secondary Status: Chronic (10) DVT prophylaxis Priority: Secondary Status: Acute (11) Diabetes mellitus Priority: Secondary Status: Chronic Qualifiers: Diabetes mellitus type: type 2 Diabetes mellitus complication status: with unspecified complications Diabetes mellitus strategic consultant insulin use: with penitentiary use Qualified Code(s): E11.8 - Type 2 diabetes mellitus with unspecified complications; Z79.4 - senior living (current) use of insulin (12) UTI (urinary tract infection) Priority: Secondary Status: Acute Qualifiers: Urinary tract infection type: site unspecified Hematuria presence: without hematuria Qualified Code(s): N39.0 - Urinary tract infection, site not specified - Discharge Medications Prescriptions: Diltiazem CD (24hr) [Cardizem CD] 180 mg PO DAILY #30 cap.er.24h LevETIRAcetam [Keppra] 250 mg PO BID #60 tablet Quetiapine Fumarate [Seroquel] 12.5 mg PO HS #15 tablet Home Medications: Bumetanide [Bumex] 1 mg PO BID 01/03/17 [History] Calcitriol [Rocaltrol] 0.25 mcg PO DAILY 01/03/17 [History] Carvedilol [Coreg] 25 mg PO BID 01/03/17 [History] Clopidogrel [Plavix] 75 mg PO DAILY 01/03/17 [History] Glimepiride [Amaryl] 2 mg PO 0800 01/03/17 [History] Insulin ASPART [Novolog] 1 unit SQ QID 01/03/17 [History] Isosorbide MONOnitrate [Isosorbide Mononitrate] 30 mg PO DAILY 01/03/17 [History ] Levothyroxine [Synthroid] 125 mcg PO DAILY 01/03/17 [History] Nitroglycerin [Nitrostat] 0.4 mg SL PRN PRN 01/03/17 [History] Potassium Chloride [Klor-Con] 25 meq PO BID 01/03/17 [History] Ranolazine [Ranexa] 1,000 mg PO BID 01/03/17 [History] Rivaroxaban [Xarelto] 15 mg PO DAILY 01/03/17 [History] Rosuvastatin [Crestor] 20 mg PO DAILY 01/03/17 [History] Diltiazem CD (24hr) [Cardizem CD] 180 mg PO DAILY #30 cap.er.24h 01/11/17 [Rx] Insulin DETEMIR [Levemir] 24 unit SQ HS [id number] 01/11/17 [Rx] LevETIRAcetam [Keppra] 250 mg PO BID #60 tablet 01/11/17 [Rx] Quetiapine Fumarate [Seroquel] 12.5 mg PO HS #15 tablet 01/11/17 [Rx] Sennosides/Docusate Sodium [Senna Plus] 2 each PO BID #0 tablet 01/11/17 [Rx] Allergies/Adverse Reactions: Allergies pioglitazone [From [employer]] Allergy (Verified 01/03/17 08:16) Cough Procedures/tests Complete & Pending: Procedures Performed prior 72 hours Category Date Time Status VQ Scan [NM pul vent and perfuse] [NM] Stat Exams 01/08/17 15:22 Completed Date of admission: 01/03/17 20:12 Primary care physician: Gianna Rendon CNP Consults: 01/04/17 09:41 Consult to Neurology [CONS] Routine Consulting Provider: Neu[facility] Reason for Consult: AMS, new onset seizures Call Completed: Yes 01/04/17 11:06 Consult to Invasive Line Access Team [CONS] Routine Reason for Consult: Poor IV access Line Type: EPIV 01/04/17 12:43 Consult to Interpret Exam [CONS] Routine Consulting Provider: Avtar De Anda Consult to Interpret Exam: Interpret EEG 01/09/17 16:05 Consult to Speech Therapy [CONS] Routine Comment: Evaluate, develop and implement POC Reason for Consult: PATIENT COUGHING MORE AND MORE WHEN TAKING DRINKS OF WATER FOR PO MEDIATIONS Call Completed: Yes Discharging clinician: Echo Royal Anticipated date of discharge: 01/11/17 - Patient Status Disposition: Transfer SNF Condition: Good Functional capacity at discharge: uses cane/walker Overall status at discharge: patient is progressing back to baseline - Discharge Instructions Instructions: Heart Failure (DC), Atrial Fibrillation (DC), Urinary Tract Infection in Women (DC), Fall Prevention (DC), Pneumonia (DC) Follow Up With: Robert Jeffrey MD [Partnered Physician] - 01/29/17 10:10 am Frankie Montiel DO [Partnered Physician] - 02/22/17 11:30 am Juan Mata MD [Partnered Physician] - 01/28/17 8:30 am Gianna Rendon CNP [Primary Care Provider] - ([facility] NO PCP APPOINTMENT IS NEEDED) Additional Instructions: Please follow up with your primary care physician, neurology, nephrology, and urology as listed above. Your home medication of Losartan has been placed on hold due to your kidney function. Please follow up with your PCP in regards to continuation of this medication. Your home dose of Bumex has been restarted. Cardizem has been added to your home medications. Please continue these medications as prescribed. Please resume all your home medications as prescribed by your primary care physician. Please maintain rivero care. Follow up with urology in regards to removal of rivero catheter. - Diet and Activity Activity: as per physical therapy Diet: other (Mechanically altered diet ) Hospital course: Ms. Cox is a 76 year old female with past medical history of atrial fibrillation on anticoagulation, type 2 diabetes, hypertension, coronary artery disease status post CABG, hypothyroidism, chronic kidney disease, secondary hyperparathyroidism, status post permanent pacemaker placement, multiple strokes admitted for management of acute mental status change, acute on chronic kidney injury. Patient was noted to have new onset seizure during this hospitalization and was started on antiepileptic medications to which responded appropriately. She was also noted to have volume overload due to which she was started on IV diuretics to which she responded appropriately. Patient was noted to have poorly rate controlled afib for which she was started on Cardizem. She was also noted to have hyponatremia and responded well to Tolvaptan therapy started by nephrology. Patient's code status was also changed to DNR/DNI during this hospitalization as per her POA. She was evaluated by PT and SNF was recommended. Patient was also noted to have urinary retention requiring rivero support. AT this time patient is hemodynamically stable and will be discharged to rehab. She is to follow up with PCP, Neurology, Nephrology, and Urology after discharge. She will be discharged to rehab with rivero catheter. - Time Spent with Patient Total time spent providing and/or coordinating discharge services: Greater than 30 minutes - Constitutional Vitals: Temp Pulse Resp BP Pulse Ox 97.3 F L 68 18 129/82 96 01/11/17 07:44 01/11/17 07:44 01/11/17 07:44 01/11/17 07:44 01/11/17 07:44 General appearance: Present: cooperative, A&O X 2, morbidly obese, pleasant, no acute distress, answers questions appropriately - Head Head exam: Present: atraumatic, normocephalic - Eye Eye exam: Present: normal appearance, conjuntiva pink, sclera anicteric - Respiratory Respiratory exam: Present: CTAB. Absent: respiratory distress, wheezes - Cardiovascular Cardiovascular exam: Present: RRR, +S1, +S2. Absent: diastolic murmur, gallop, rubs, systolic murmur - GI/Abdominal GI/Abdominal exam: Present: normal bowel sounds, soft, no peritoneal signs. Absent: distended, tenderness - Extremities Exam Extremities exam: Present: warm, radial pulses palpable and symetrical. Absent : calf tenderness, cyanotic, pedal edema - Neurological Exam Neurological exam: Present: alert - Psychiatric Psychiatric exam: Present: normal affect, normal mood - VTE Documentation of Mechanical Device: Intermittent pneumatic compression device
[2017-01-11 11:35] VITALS: BP 123/77
--- NOTE | 2017-01-11 11:44 | Physician Discharge Referral ---
ExtendedCare Referral Info Transfer To: F Provider in Charge after Transfer: PCP - Diagnosis (1) Acute respiratory distress Priority: Primary Status: Resolved (2) Atrial fibrillation Priority: Secondary Status: Chronic (3) New onset seizure Priority: Primary Status: Acute (4) Jutri-th-vymlvsp kidney injury Priority: Secondary Status: Acute (5) Pneumonia Priority: Secondary Status: Acute (6) Congestive heart failure Priority: Secondary Status: Chronic (7) Hyponatremia Priority: Secondary Status: Chronic (8) Ischemic cardiomyopathy Priority: Secondary Status: Chronic (9) Severe mitral regurgitation Priority: Secondary Status: Chronic (10) DVT prophylaxis Priority: Secondary Status: Acute (11) Diabetes mellitus Priority: Secondary Status: Chronic (12) UTI (urinary tract infection) Priority: Secondary Status: Acute - Transfer Medications Prescriptions: Diltiazem CD (24hr) [Cardizem CD] 180 mg PO DAILY #30 cap.er.24h LevETIRAcetam [Keppra] 250 mg PO BID #60 tablet Quetiapine Fumarate [Seroquel] 12.5 mg PO HS #15 tablet Home Medications: Bumetanide [Bumex] 1 mg PO BID 01/03/17 [History] Calcitriol [Rocaltrol] 0.25 mcg PO DAILY 01/03/17 [History] Carvedilol [Coreg] 25 mg PO BID 01/03/17 [History] Clopidogrel [Plavix] 75 mg PO DAILY 01/03/17 [History] Glimepiride [Amaryl] 2 mg PO 0800 01/03/17 [History] Insulin ASPART [Novolog] 1 unit SQ QID 01/03/17 [History] Isosorbide MONOnitrate [Isosorbide Mononitrate] 30 mg PO DAILY 01/03/17 [History ] Levothyroxine [Synthroid] 125 mcg PO DAILY 01/03/17 [History] Nitroglycerin [Nitrostat] 0.4 mg SL PRN PRN 01/03/17 [History] Potassium Chloride [Klor-Con] 25 meq PO BID 01/03/17 [History] Ranolazine [Ranexa] 1,000 mg PO BID 01/03/17 [History] Rivaroxaban [Xarelto] 15 mg PO DAILY 01/03/17 [History] Rosuvastatin [Crestor] 20 mg PO DAILY 01/03/17 [History] Diltiazem CD (24hr) [Cardizem CD] 180 mg PO DAILY #30 cap.er.24h 01/11/17 [Rx] Insulin DETEMIR [Levemir] 24 unit SQ HS [id number] 01/11/17 [Rx] LevETIRAcetam [Keppra] 250 mg PO BID #60 tablet 01/11/17 [Rx] Quetiapine Fumarate [Seroquel] 12.5 mg PO HS #15 tablet 01/11/17 [Rx] Sennosides/Docusate Sodium [Senna Plus] 2 each PO BID #0 tablet 01/11/17 [Rx] Allergies/Adverse Reactions: Allergies pioglitazone [From [employer]] Allergy (Verified 01/03/17 08:16) Cough - Respiratory Orders Smoking Cessation: Smoking cessation has been advised. For more information, call the [place] Tobacco Quit Line at 7-938-AZHP-NOW. - Rehabiliation Orders Other: Please follow up with your primary care physician, neurology, nephrology, and urology as listed above. Your home medication of Losartan has been placed on hold due to your kidney function. Please follow up with your PCP in regards to continuation of this medication. Your home dose of Bumex has been restarted. Cardizem has been added to your home medications. Please continue these medications as prescribed. Please resume all your home medications as prescribed by your primary care physician. Please maintain rivero care. Follow up with urology in regards to removal of rivero catheter. Diet: Mechanically altered diet - Diet Orders House Supplement per Dietary: MECHANICALLY ALTERED DIET DIABETIC DIET CERTIFICATION: I certify that the transfer of the above named patient to an Extended Care Facility is necessary for the continuing treatment of the diagnosis listed. The above information is true and accurate reflection of patient's current condition. Confidential - Redisclosure prohibited without a patient's written consent.
--- NOTE | 2017-01-11 16:51 | Electrocardiograph Report ---
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
== END 2017-01-11 14:09 | DRG 682 ==
LOC: 3BNU 23:14 → EMEROO 23:14 → 3BNU 01-03 05:03 → SUATTDRO 01-03 20:12 → 2NNU 01-04 06:53
PROVIDERS: ADMIT Registered Nurse; ATTEND Internal Medicine

== ENCOUNTER 2017-01-12 10:28 | Inpatient (IN) ==
[2017-01-12] MEDS ORDERED: Naloxone 0.4 MG/ML INJ IVP PRN (13:35)
[2017-01-12] MEDS ORDERED: Ondansetron 4 MG/2 ML VIAL IVP PRN (13:38)
[2017-01-12] MEDS ORDERED: 0.9 % Sodium Chloride 1,000 ML IVC SCH (13:45)
--- NOTE | 2017-01-12 14:03 | Internal Med History&Physical ---
<TaniyaGeriNeville T - Last Filed: 01/12/17 14:45> Date of Encounter: 01/12/17 Internal Medicine - H&P: HPI History of present illness: Ms. Cox is a 76 year old female Internal Medicine - H&P: Meds Bumetanide [Bumex] 1 mg PO BID 01/03/17 [History] Calcitriol [Rocaltrol] 0.25 mcg PO DAILY 01/03/17 [History] Carvedilol [Coreg] 25 mg PO BID 01/03/17 [History] Clopidogrel [Plavix] 75 mg PO DAILY 01/03/17 [History] Glimepiride [Amaryl] 2 mg PO 0800 01/03/17 [History] Insulin ASPART [Novolog] 1 unit SQ QID 01/03/17 [History] Isosorbide MONOnitrate [Isosorbide Mononitrate] 30 mg PO DAILY 01/03/17 [History ] Levothyroxine [Synthroid] 125 mcg PO DAILY 01/03/17 [History] Nitroglycerin [Nitrostat] 0.4 mg SL PRN PRN 01/03/17 [History] Potassium Chloride [Klor-Con] 25 meq PO BID 01/03/17 [History] Ranolazine [Ranexa] 1,000 mg PO BID 01/03/17 [History] Rivaroxaban [Xarelto] 15 mg PO DAILY 01/03/17 [History] Rosuvastatin [Crestor] 20 mg PO DAILY 01/03/17 [History] Diltiazem CD (24hr) [Cardizem CD] 180 mg PO DAILY #30 cap.er.24h 01/11/17 [Rx] Insulin DETEMIR [Levemir] 24 unit SQ HS [id number] 01/11/17 [Rx] LevETIRAcetam [Keppra] 250 mg PO BID #60 tablet 01/11/17 [Rx] Quetiapine Fumarate [Seroquel] 12.5 mg PO HS #15 tablet 01/11/17 [Rx] Sennosides/Docusate Sodium [Senna Plus] 2 each PO BID #0 tablet 01/11/17 [Rx] Allergies pioglitazone [From Actos] Allergy (Verified 01/03/17 08:16) Cough All Systems PM: A 10-system review of systems was performed and is negative for pertinent findings except as documented above in the HPI. - Constitutional Vitals: Temp Pulse Resp BP Pulse Ox 96.1 F L 79 18 111/71 95 01/12/17 12:37 01/12/17 12:37 01/12/17 12:37 01/12/17 12:37 01/12/17 12:37 - Attending Attestation I have independently interviewed and examined this patient. I have reviewed the EMR extensively and discussed plan of care the resident/nurse practitioner. Evaluated at bedside with DINA Greco RN, and patients family 76 Y/O F with PMH of Afib, DM2, HTN, CAD, s/p CABG with AICD, Severe MVR, hypothyroidism, CKD , multiple strokes, CHFrEF 25-30% ,new onset seizure. She was referred back to us from rehab center due to altered mental status and diffuse abdominal pain with distension. KUB revealed air-filled dilated loops of colon largest measuring up to 11.6 cm. No free air. Patient is able to answer a few questions but is lethargic and hard of hearing, she is still able to pass gas and does not answer when she is asked about her BM , she denied loss of appetite, nausea, vomiting, no further history is obtained. Per her son at the bedside, she is at her neurologic baseline and has been in and out of hospitals recently. Physical exam: VSS, patient is lying flat in bed, occasionally moans, she is in mild painful distress, she has no obvious neurologic deficits, and chest is clear, heart S1, S2, murmur, no gallops. Abdomen is distended and mildly tender , patient is guarding, soft masses on the RUQ and RLQ, and bowel sounds present. Digital rectal exam revealed no obvious external abnormalities, hard stools up to the rectal vault, removal of few brown hard stools, tip of finger could touch more hard stools proximally Labs and Imaging done at referral center today were at baseline. KUB as documented above Assessment and plan severe constipation rule out colonic obstruction. Obtain an abdomen CT pelvis to rule out any obstruction. If no obstruction, patient would benefit from soap suds enema, and decompression with NG tube. Surgical consult if any evidence of mechanical obstruction. Resume home meds as toelrated via NG, or give IV forms till patient's symptoms improve Rest of details of the [employer] Angus documentation. <Caity Greco - Last Filed: 01/13/17 00:17> Date of Encounter: 01/13/17 Time of Encounter: 13:00 Assessment and Plan (1) Constipation due to pain medication Current visit: Yes Status: Acute 1 patient has been receiving pain medications has been notable for some time. He does not know was patient had a bowel movement. Patient's abdomen is distended with palpable masses. CT of abdomen revealed diffuse colonic dilatation without distinct obstructing abrupt transition point smoothly tapering of the distal colon. I reviewed the CT with Dr. Monahan, patient was manually disimpacted -was given soap yariel enema. Repeat enema in a.m. 2 give senna/colace twice a day 3 nothing by mouth for now 4 IV fluids overnight 5 avoid opioids 6 manually disimpact as needed (2) History of seizure Current visit: Yes Status: Acute 1 patient has history of seizure was seen by Dr. Gunn during last admission. Suspected related to electrolyte and acute kidney injury. We will continue with Keppra 2 place on seizure precautions (3) Atrial fibrillation Current visit: No Status: Chronic 1 patient is on beta catalina and Cardizem and will continue will continue with xarelto patient's rate control time Qualifiers: Atrial fibrillation type: chronic Qualified Code(s): I48.2 - Chronic atrial fibrillation (4) CKD (chronic kidney disease), stage IV Current visit: No Status: Chronic 1 patient had creatinine 2.05. Previous creatinine was 2.29. Continue to monitor creatinine 2 avoid nephrotoxins 3 monitor intake and output 4 daily weights (5) Congestive heart failure Current visit: No Status: Chronic 1 25-30% with pacemaker, presently stable. Continue with beta catalina,bumex 2 monitor intake and output and weights 3 sodium diet once taking orals Qualifiers: Congestive heart failure type: combined Congestive heart failure chronicity : chronic Qualified Code(s): I50.42 - Chronic combined systolic (congestive) and diastolic (congestive) heart failure (6) Coronary artery disease Current visit: No Status: Chronic 1 continue with patient catalina statin Plavix and Ranexa nitroglycerin Isorbid Qualifiers: Coronary Disease-Associated Artery/Lesion type: bypass graft [place] vs. transplanted heart: [place] heart Associated angina: without angina Qualified Code(s): I25.810 - Atherosclerosis of coronary artery bypass graft(s) without angina pectoris (7) Diabetes mellitus Current visit: No Status: Chronic 1 we will hold oral antidiabetic patient is nothing by mouth Accu-Cheks every 6 hours with sliding scale insulin as needed 2. Episode of hypoglycemia she is nothing by mouth will add dextrose to IV fluids Qualifiers: Diabetes mellitus type: type 2 Diabetes mellitus complication status: with unspecified complications Diabetes mellitus planer offbearer insulin use: with planer offbearer use Qualified Code(s): E11.8 - Type 2 diabetes mellitus with unspecified complications; Z79.4 - truss maker (current) use of insulin (8) DVT prophylaxis Current visit: No Status: Acute Patient is on xarelto Internal Medicine - H&P: HPI Chief complaint: Abd pain Admitted From: Hospital to Hospital Transfer Plans for Post Hospital Care: Transfer Inp Rehab Fac History of present illness: Ms. Cox is a 76 year old female past medical history of atrial fibrillation type 2 diabetes hypertension coronary disease status post CABG with only 1/5 patent bypass graft on [facility] in 2013 hypothyroidism chronic kidney disease status post permanent pacemaker placement with multiple strokes systolic CHF with EF 25-30% new onset seizure. The patient presented to this facility after sustaining a fall at home. The patient's and stated that the patient had fell and complaining of left hip pain and generalized weakness. She had previously been discharged from [facility] ( they follow with Dr. bernard at [facility]) 2 weeks prior for CHS exacerbation/fluid overload. Reportedly she was on Lasix which was switched to Bumex prior to discharge but the son stated to Bumex as making the patient gags that he switched back to Lasix at one of the twice a day doses. Patient was found to have GEORGES with creatinine at 3.06. Patient was admitted during admission echo obtained which revealed systolic dysfunction with EF of 25-30% global LV hypokinesis. Mildly dilated RV with mild RV hypokinesis severely dilated left and right atrium mild AR mildly calcified in the leaflets restricted motion of posterior MV leaflets severe MR and mild TR. Her diuretics were held she was given gentle IV hydration. Also during this admission patient did experience seizure activity. She was seen by neurology who suspected seizures induced through metabolic disease and GEORGES. She was placed on Keppra and having no incidences of seizures prior to discharge. Patient was discharged 01/11/2017 to inpatient rehabilitation. This a.m. patient was complaining of diffuse abdominal pain and her mental status was altered. X- ray of abdomen revealed air-filled dilated loops of colon largest measuring up to 11.6 cm. No free air. Patient was transferred/admitted back to [facility] for further workup and evaluation. Presently up on assessment patient is hard of hearing, she is drowsy but arousable to verbal stimuli slow to respond to questions. According to son she is near baseline neurologically. Abdomen is distended they are firm palpable masses right upper quadrant to right lower quadrant. Patient is guarding. Rectal exam was performed per Dr Monahan there were several hard small stool balls removed from rectal vault. There was stool felt beyond fingertip however unable to bring down. Patient states she has been passing gas and she was belching as we rolled her over. Obtaining stat CT of abdomen to rule out any surgical emergencies. Presently she is hemodynamically stable postoperatively respiratory distress she complains of abdominal pain. I reviewed this case with Dr. Monahan who agrees with plan Past Med Surg Social Fam HX - Past Medical History Medical history: atrial fibrillation, cardiomyopathy, CHF, coronary artery disease, CVA, diabetes, hyperlipidemia, hypertension, myocardial infarction, renal disease, thyroid disease Psychiatric history: no psych history - Past Surgical History Surgical History: angioplasty/stent, coronary bypass (CABG), pacemaker/AICD - Social History Smoking Status: Never smoker Smokeless Tobacco Status: No Alcohol use: none Drug use: none - Family History Mother Hx Family Endocrine Disorder: Yes (DIABETES MELLITUS.) All Systems PM: A 10-system review of systems was performed and is negative for pertinent findings except as documented above in the HPI. - Constitutional Constitutional: fatigue, weakness - Cardiovascular Cardiovascular ROS IM: edema - Respiratory Respiratory: no cough, no dyspnea, no wheezing, no excessive phlegm production - Gastrointestinal Gastrointestinal: abdominal pain, belching, bloating, constipation - Genitourinary Genitourinary: no change in urinary stream, no dysuria, no flank pain, no hematuria - Musculoskeletal Musculoskeletal ROS IM: no numbness, no tingling - Neurological Neurological ROS: convulsions, no confusion, no focal weakness, no numbness, no tingling, no tremor(s) - Hematologic/Lymphatic Hematologic/Lymphatic: easy bruising - Constitutional Vitals: Temp Pulse Resp BP Pulse Ox 96.1 F L 79 18 111/71 95 01/12/17 12:37 01/12/17 12:37 01/12/17 12:37 01/12/17 12:37 01/12/17 12:37 General appearance: Present: A&O X 3, answers questions appropriately - Head Head exam: Present: atraumatic, normocephalic - Respiratory Respiratory exam: Present: CTAB. Absent: accessory muscle use, rales, rhonchi, wheezes - Cardiovascular Cardiovascular exam: Present: RRR, +S1, +S2. Absent: diastolic murmur, gallop, rubs, systolic murmur - GI/Abdominal GI/Abdominal exam: Present: distended, guarding, mass, tenderness, no peritoneal signs - Extremities Exam Extremities exam: Present: pedal edema, warm, radial pulses palpable and symetrical. Absent: calf tenderness, cyanotic - Neurological Exam Neurological exam: Present: CN II-XII intact, oriented X3, no focal deficits. Absent: pronater drift, facial droop, speech deficit - Skin Skin exam: Present: abrasion, dry, intact Internal Med - H&P Results - Labs CBC & Chem 7: 01/12/17 14:35
[2017-01-12 15:06] LABS: Hematocrit 40.9 % (35.3-44.9); Hemoglobin 13.3 g/dL (11.5-15.4); Mean Corpuscular HGB Conc 32.5 g/dL (31.6-35.5); Mean Corpuscular Hemoglobin 26.8 pg (28.0-33.3); Mean Corpuscular Volume 82.3 fL (83.0-100.0); Mean Platelet Volume 9.4 fL (9.4-12.4); Platelet Count 244 K/mcL (140-400); Red Blood Count 4.97 M/mcL (3.82-4.97); Red Cell Distribution Width 17.3 % (11.5-14.5)
[2017-01-12 15:37] LABS: Lymphocytes # 2.1 K/mcL (0.6-4.6); Monocytes # 0.7 K/mcL (0.0-1.3); Neutrophils # 5.4 K/mcL (1.6-8.9); Reactive Lymphocytes Present (Not Present); Smudge Cells Present (Not Present)
[2017-01-12 15:38] LABS: Anisocytosis 1+ (Not Present); Polychromasia 1+ (Not Present)
[2017-01-12 15:39] LABS: Platelet Estimate Normal (Normal)
[2017-01-12] MEDS ORDERED: Dextrose Gel 15 GM PO PRN ×2 (16:36)
[2017-01-12] MEDS ORDERED: D5% in Water 1,000 ML IVC PRN (16:36)
[2017-01-12] MEDS ORDERED: *HR* Dextrose 50 % in Water (Syg) 50 ML SYRINGE IVP PRN (16:36)
[2017-01-12] MEDS: Insulin LISPRO 300 UNITS/3 ML VIAL SQ SCH (17:03)
[2017-01-12] MEDS: Sennosides/Docusate Sodium TABLET PO SCH (20:43)
[2017-01-12] MEDS: Potassium Effervescent 25 MEQ TABLET.EFF PO SCH (20:43)
[2017-01-12] MEDS: levETIRAcetam 250 MG TABLET PO SCH (20:44)
[2017-01-12] MEDS: Ranolazine 500 MG TAB.ER.12H PO SCH (20:44)
[2017-01-12] MEDS: Bumetanide 1 MG TABLET PO SCH (20:44)
[2017-01-12] MEDS: D5% in 0.9% NACL 1,000 ML IVC SCH (20:45)
[2017-01-13] MEDS: Insulin LISPRO 300 UNITS/3 ML VIAL SQ SCH ×4 (00:17→18:10)
--- NOTE | 2017-01-13 01:05 | Event Note ---
Date of Encounter: 01/13/17 Time of Encounter: 01:00 Several attempts have been made to place NG for decompression per nursing staff , and myself. Updated Dr Morales will hold for now and obtain KUB in am
[2017-01-13 05:11] LABS: Basophils % 0.1 %; Hemoglobin 13.3 g/dL (11.5-15.4); Immature Granulocytes % 0.8 % (0-4); Lymphocytes # 0.4 K/mcL (0.6-4.6); Lymphocytes % 3.9 %; Mean Corpuscular HGB Conc 32.4 g/dL (31.6-35.5); Mean Corpuscular Hemoglobin 27.1 pg (28.0-33.3); Mean Corpuscular Volume 83.5 fL (83.0-100.0); Mean Platelet Volume 10.1 fL (9.4-12.4); Monocytes # 0.9 K/mcL (0.0-1.3); Monocytes % 9.8 %; Neutrophils # 7.6 K/mcL (1.6-8.9); Nucleated Red Blood Cells 0.2 /100 WBC (0); Platelet Count 254 K/mcL (140-400); Red Blood Count 4.91 M/mcL (3.82-4.97); Red Cell Distribution Width 17.4 % (11.5-14.5); Segmented Neutrophils % 85.4 %
[2017-01-13 05:31] LABS: Calcium 9.3 mg/dL (8.6-10.8)
[2017-01-13 05:33] LABS: Potassium 4.3 mEq/L (3.5-4.5)
[2017-01-13 05:40] LABS: Platelet Estimate Normal (Normal)
[2017-01-13] MEDS ORDERED: *HR* Rivaroxaban 15 MG TABLET PO SCH (09:00)
[2017-01-13] MEDS: Isosorbide MONOnitrate (24 HR) 30 MG TAB.ER.24H PO SCH (09:33)
[2017-01-13] MEDS: Potassium Effervescent 25 MEQ TABLET.EFF PO SCH ×2 (09:34→21:20)
[2017-01-13] MEDS: Sennosides/Docusate Sodium TABLET PO SCH ×2 (09:34→21:19)
[2017-01-13] MEDS: Diltiazem CD (24hr) 180 MG CAPSULE PO SCH (09:34)
[2017-01-13] MEDS: Ranolazine 500 MG TAB.ER.12H PO SCH ×2 (09:34→21:18)
[2017-01-13] MEDS: Bumetanide 1 MG TABLET PO SCH (09:34)
[2017-01-13] MEDS: levETIRAcetam 250 MG TABLET PO SCH ×2 (09:34→21:20)
[2017-01-13] MEDS: D5% in 0.9% NACL 1,000 ML IVC SCH (11:53)
--- NOTE | 2017-01-13 14:07 | Internal Med Progress Note ---
Date of Encounter: 01/13/17 Time of Encounter: 14:04 - Assessment and plan (1) Congestive heart failure Current Visit: No Status: Chronic Assessment and plan: No evidence of acute decompensation. Per chart review her EF in the past was 25 -30%. We will have to be extremely cautious with IV fluid hydration. She was just admitted for CHF exacerbation and fluid overload and therefore I will stop her IV fluids at this time. Qualifiers: Congestive heart failure type: combined Congestive heart failure chronicity : chronic Qualified Code(s): I50.42 - Chronic combined systolic (congestive) and diastolic (congestive) heart failure (2) Atrial fibrillation Current Visit: No Status: Chronic Assessment and plan: Continue with rate control medication. Qualifiers: Atrial fibrillation type: chronic Qualified Code(s): I48.2 - Chronic atrial fibrillation (3) CKD (chronic kidney disease), stage IV Current Visit: No Status: Chronic Assessment and plan: Discussed with nephrology. Creatinine is at her baseline. Avoid nephrotoxins. Monitor BUN and creatinine. Adjust medication doses to kidney function. I will stop IV fluids at this time due to history of CHF. (4) Ischemic cardiomyopathy Current Visit: No Status: Chronic (5) MGUS (monoclonal gammopathy of unknown significance) Current Visit: No Status: Chronic (6) History of seizure Current Visit: Yes Status: Acute (7) Constipation due to pain medication Current Visit: Yes Status: Acute - Subjective Interval history: She was admitted yesterday for constipation. She is a poor historian. She cannot tell me when she had her last bowel movement. Review of her chart she was disimpacted in the ED and she had a soapsuds enema. She reports mild abdominal pain but no nausea or vomiting. - Constitutional Vitals: Temp Pulse Resp BP Pulse Ox 98.0 F 82 18 98/69 99 01/13/17 11:08 01/13/17 11:08 01/13/17 11:08 01/13/17 11:08 01/13/17 11:08 General appearance: Present: A&O X 3, answers questions appropriately - Eye Eye exam: Present: PERRL, conjuntiva pink, sclera anicteric Pupils: Present: PERRL - Respiratory Respiratory exam: Present: CTAB. Absent: accessory muscle use, rales, rhonchi, wheezes - Cardiovascular Cardiovascular exam: Present: RRR, +S1, +S2. Absent: diastolic murmur, gallop, rubs, systolic murmur - GI/Abdominal GI/Abdominal exam: Present: distended, normal bowel sounds, soft, tenderness ( Tender to palpation particularly in the epigastric area without guarding or rebound tenderness.), no peritoneal signs - Extremities Exam Extremities exam: Present: warm, radial pulses palpable and symetrical. Absent : calf tenderness, cyanotic, pedal edema Internal Medicine: Result - Labs CBC & Chem 7: 01/13/17 03:53 01/13/17 03:53 Labs: Short CBC 01/12/17 01/13/17 Range/Units 14:35 03:53 WBC 8.2 8.9 (4.3-11.1) K/mcL Hgb 13.3 13.3 (11.5-15.4) g/dL Hct 40.9 41.0 (35.3-44.9) % Plt Count 244 254 (140-400) K/mcL Neutrophils # 5.4 7.6 (1.6-8.9) K/mcL BMP 01/13/17 03:53 Sodium 136 Potassium 4.3 Chloride 98 Carbon Dioxide 24 BUN 59 H Creatinine 1.86 H Glucose 100 H Calcium 9.3 - Impressions Impressions Abdomen/Pelvis CT 01/12/17 15:21 IMPRESSION: Diffuse colonic dilation without distinct obstructing abrupt transition point, smoothly tapering into the distal colon. Colonic ileus is therefore more likely than distal colonic obstruction. Findings of the lung bases as discussed D/ / Bakari Espinoza MD / Bakari Espinoza MD Interpreting Provider: Bakari Espinoza MD X-Ray 01/13/17 06:00 IMPRESSION: No significant interval change in the bowel dilation. Persistent right basilar opacity. D/ / Bobbi Blanco MD / Bobbi Blanco MD Interpreting Provider: Bobbi Blanco MD Consult Discharge Plan - Plan Referrals: NO,PCP [Primary Care Provider] -
[2017-01-13] MEDS: 0.9 % Sodium Chloride 1,000 ML IVC SCH (15:19)
--- NOTE | 2017-01-13 16:19 | General Surgery Consult Note ---
Date of Encounter: 01/13/17 Time of Encounter: 15:10 Assessment and Plan (1) Joe's syndrome Current Visit: Yes Status: Acute recommend npo decrease narcotic use as much as able start reglan milk of molasses enema x 1 if no results consult GI for neostigmine will follow hold xeralto currently serial abd exams medical management per hospitalists (2) Generalized weakness Current Visit: No Status: Acute History of Present Illness Consult date: 01/13/17 Reason for consult: abdominal pain Requesting physician: Tim Moran History of present illness: Patient is 76 yr old female who is unable to provide me any medical history whatsoever. Patient has recently been in and out of hospital for fall, CHF exaccerbation, GEORGES. She was discharged to rehab 2 days ago when today her abdomen was distended and painful and her mental status had changed. She was transferred to [place] and CT shows colonic ileus. Past Med Surg Social Fam HX - Past Medical History Source: old records reviewed Medical history: atrial fibrillation, cardiomyopathy, CHF, coronary artery disease, CVA, diabetes, hyperlipidemia, hypertension, myocardial infarction, renal disease, thyroid disease Psychiatric history: no psych history - Past Surgical History Surgical History: angioplasty/stent, coronary bypass (CABG), pacemaker/AICD - Social History Smoking Status: Never smoker Smokeless Tobacco Status: No Alcohol use: none Drug use: none - Family History Mother Hx Family Endocrine Disorder: Yes (DIABETES MELLITUS.) Medications and Allergies Bumetanide [Bumex] 1 mg PO BID 01/03/17 [History] Calcitriol [Rocaltrol] 0.25 mcg PO DAILY 01/03/17 [History] Carvedilol [Coreg] 25 mg PO BID 01/03/17 [History] Clopidogrel [Plavix] 75 mg PO DAILY 01/03/17 [History] Glimepiride [Amaryl] 2 mg PO 0800 01/03/17 [History] Insulin ASPART [Novolog] 1 unit SQ QID 01/03/17 [History] Isosorbide MONOnitrate [Isosorbide Mononitrate] 30 mg PO DAILY 01/03/17 [History ] Levothyroxine [Synthroid] 125 mcg PO DAILY 01/03/17 [History] Nitroglycerin [Nitrostat] 0.4 mg SL PRN PRN 01/03/17 [History] Potassium Chloride [Klor-Con] 25 meq PO BID 01/03/17 [History] Ranolazine [Ranexa] 1,000 mg PO BID 01/03/17 [History] Rivaroxaban [Xarelto] 15 mg PO DAILY 01/03/17 [History] Rosuvastatin [Crestor] 20 mg PO DAILY 01/03/17 [History] Diltiazem CD (24hr) [Cardizem CD] 180 mg PO DAILY #30 cap.er.24h 01/11/17 [Rx] Insulin DETEMIR [Levemir] 24 unit SQ HS [id number] 01/11/17 [Rx] LevETIRAcetam [Keppra] 250 mg PO BID #60 tablet 01/11/17 [Rx] Quetiapine Fumarate [Seroquel] 12.5 mg PO HS #15 tablet 01/11/17 [Rx] Sennosides/Docusate Sodium [Senna Plus] 2 each PO BID #0 tablet 01/11/17 [Rx] Allergies pioglitazone [From [employer]] Allergy (Verified 01/03/17 08:16) Cough Review of Systems ROS unobtainable: due to mental status All systems PM: A 10-system review of systems was performed and is negative for pertinent findings except as documented above in the HPI. General Surgery Exam Initial Vital Signs Temp Pulse Resp BP Pulse Ox 96.1 F L 79 18 111/71 95 01/12/17 12:37 01/12/17 12:37 01/12/17 12:37 01/12/17 12:37 01/12/17 12:37 - General physical appearance no distress, chronically ill, obese - Eyes normal ocular movement - ENT dry mucosa, atraumatic, normocephalic - Neck trachea midline - Respiratory normal expansion, clear to auscultation - Cardiovascular Cardiovascular exam: Present: RRR - Abdomen Abdomen general surgery: Present: bowel sounds present, soft, tympanic, distended, tender. Absent: guarding, rebound Abdominal Tenderness: Present: diffusely - Integumentary Integumentary general surgery: Present: warm and dry, other (multiple areas of ecchymosis) - Neurologic Present: CN 2-12 grossly intact, confused - Musculoskeletal Present: other (generalized weakness) - Psychiatric Psychiatric general surgery: Present: oriented to person Exam Initial Vital Signs Temp Pulse Resp BP Pulse Ox 96.1 F L 79 18 111/71 95 01/12/17 12:37 01/12/17 12:37 01/12/17 12:37 01/12/17 12:37 01/12/17 12:37 Results - Labs 01/13/17 03:53 01/13/17 03:53 Short CBC 01/13/17 Range/Units 03:53 WBC 8.9 (4.3-11.1) K/mcL Hgb 13.3 (11.5-15.4) g/dL Hct 41.0 (35.3-44.9) % Plt Count 254 (140-400) K/mcL Neutrophils # 7.6 (1.6-8.9) K/mcL BMP 01/13/17 Range/Units 03:53 Sodium 136 (136-145) mEq/L Potassium 4.3 (3.5-4.5) mEq/L Chloride 98 (98-109) mEq/L Carbon Dioxide 24 (19-29) mEq/L BUN 59 H (7-20) mg/dL Creatinine 1.86 H (0.57-1.11) mg/dL Glucose 100 H (70-99) mg/dL Calcium 9.3 (8.6-10.8) mg/dL Vital Signs Temp Pulse Resp BP Pulse Ox 01/13/17 14:51 96.8 F L 93 18 105/65 96 01/13/17 11:08 98.0 F 82 18 98/69 99 01/13/17 06:59 97.5 F L 106 20 134/74 94 01/13/17 03:39 98.0 F 107 20 112/78 92 01/13/17 00:42 97.9 F 107 20 115/72 93 01/12/17 20:40 97.6 F 99 20 119/82 95 Intake and Output 01/13/17 01/13/17 01/13/17 07:59 15:59 23:59 Intake Total 1000 / 1000 Output Total 650 / 650 650 / 650 Balance -650 / -650 350 / 350 Intake: IV Fluids 1000 / 1000 D5% And 0.9% Nacl 1000 Ml 1000 / 1000 1,000 ML @ 75 mls/hr IVC .[id number] RORY Rx#: [id number] Oral 0 / 0 Output: Catheter 650 / 650 650 / 650 Other: Meal NPO # Bowel Movements 0 0 Weight 99.9 kg Blood Glucose* 115 168 Patient Weight 01/13/17 23:59 Weight 99.9 kg - Imaging CT scan - abdomen: report reviewed, image reviewed CT scan - pelvis: report reviewed, image reviewed Consult Discharge Plan - Plan Referrals: NO,PCP [Primary Care Provider] -
[2017-01-13] MEDS ORDERED: Milk and Molasses Enema 200 ML RC ONE (16:25)
[2017-01-14] MEDS: Insulin LISPRO 300 UNITS/3 ML VIAL SQ SCH ×4 (01:31→17:16)
[2017-01-14 04:19] LABS: Calcium 9.4 mg/dL (8.6-10.8); Potassium 4.1 mEq/L (3.5-4.5)
[2017-01-14 04:25] LABS: Hematocrit 34.8 % (35.3-44.9); Mean Corpuscular HGB Conc 32.2 g/dL (31.6-35.5); Mean Corpuscular Hemoglobin 26.4 pg (28.0-33.3); Mean Corpuscular Volume 82.1 fL (83.0-100.0); Mean Platelet Volume 9.5 fL (9.4-12.4); Platelet Count 217 K/mcL (140-400); Red Blood Count 4.24 M/mcL (3.82-4.97); Red Cell Distribution Width 17.2 % (11.5-14.5)
[2017-01-14 05:08] LABS: Hemoglobin 11.2 g/dL (11.5-15.4)
[2017-01-14 05:12] LABS: Lymphocytes # 0.6 K/mcL (0.6-4.6); Monocytes # 0.8 K/mcL (0.0-1.3); Neutrophils # 8.6 K/mcL (1.6-8.9); Platelet Estimate Normal (Normal)
[2017-01-14] MEDS: Isosorbide MONOnitrate (24 HR) 30 MG TAB.ER.24H PO SCH (08:14)
[2017-01-14] MEDS: Ranolazine 500 MG TAB.ER.12H PO SCH ×2 (08:14→20:44)
[2017-01-14] MEDS: Potassium Effervescent 25 MEQ TABLET.EFF PO SCH ×2 (08:14→20:46)
[2017-01-14] MEDS: Sennosides/Docusate Sodium TABLET PO SCH ×2 (08:14→20:44)
[2017-01-14] MEDS: Diltiazem CD (24hr) 180 MG CAPSULE PO SCH (08:15)
[2017-01-14] MEDS: levETIRAcetam 250 MG TABLET PO SCH ×2 (08:15→20:45)
[2017-01-14] MEDS: 0.9 % Sodium Chloride 1,000 ML IVC SCH (08:22)
[2017-01-14] MEDS: Acetaminophen 325 MG TABLET PO PRN (08:22)
--- NOTE | 2017-01-14 09:33 | Gastroenterology Consult Note ---
<Angelina Donovan - Last Filed: 01/14/17 11:09> Date of Encounter: 01/14/17 Time of Encounter: 10:40 - Assessment and plan (1) Dilatation of colon Current Visit: Yes Status: Acute Assessment and plan: Patient has had enema and laxative with no improvement. Consider neostigmine followed by colonic decompression. Discussed case with Dr. Glynn. - Time Spent With Patient Total time spent is greater than 50% in coordination of care (as documented) at patient's floor/unit and/or counseling patient: less than 15 minutes GI History of Present Illness - Data of Consult Patient: new to practice Consult date: 01/14/17 Requesting Physician: Tim Moran MD - Consult Narrative Reason for consult: Constipation w/colonic ileus History of present illness: Ms. Cox is a 76 year old female with a PMH of pacemaker, DM, hard of hearing, HTN, CVA, recent seizure, CAD, afib on anticoagulation (Xarelto), CKD, CABG, poor EF 25-30% presented on 01/12 with abdominal pain/distension after being d/c 01/11 to inpatient rehab. This patient was complaining of diffuse abdominal pain and her mental status was altered. X-ray of abdomen revealed air -filled dilated loops of colon largest measuring up to 11.6 cm. No free air. Patient was transferred/admitted back to [facility] for further workup and evaluation. Abdomen was distended with firm palpable masses in right upper quadrant to right lower quadrant. Rectal exam was performed per Dr Monahan at time of admit revealing several hard small stool balls which were removed from rectal vault. There was stool felt beyond fingertip however unable to bring down. Patient stated she had been passing gas. Serial KUB revealed stable colonic dilation, persistant but not worsening. GI was consulted by [facility], Dr. Ronquillo, for possible neostigmine or colonic decompression. Patient states some abdominal discomfort, she is very hard of hearing and is a poor historian. Denies current BM, admits passing gas. Colonoscopy: Unk EGD: Unk Past Med Surg Social Fam HX - Past Medical History Medical history: atrial fibrillation, cardiomyopathy, CHF, coronary artery disease, CVA, diabetes, hyperlipidemia, hypertension, myocardial infarction, renal disease, thyroid disease Psychiatric history: no psych history - Past Surgical History Surgical History: angioplasty/stent, coronary bypass (CABG), pacemaker/AICD - Social History Smoking Status: Never smoker Smokeless Tobacco Status: No Alcohol use: none Drug use: none - Family History Mother Hx Family Endocrine Disorder: Yes (DIABETES MELLITUS.) - Gastrointestinal NSAID use: None noted Anticoagulation Use: Xarelto, Plavix Number of BM Per Day: Unk Gastrointestinal: Present: abdominal pain - Constitutional Constitutional: as per HPI - EENT Eyes: as per HPI Ears: Present: as per HPI Nose, mouth and throat: Present: as per HPI - Cardiovascular Cardiovascular ROS: Present: as per HPI - Respiratory Respiratory IM: Present: as per HPI - Neurological ROS Neurological GI: Present: as per HPI - Hematologic/Lymphatic Hematologic/Lymphatic pediatric: Present: as per HPI - Musculoskeletal Musculoskeletal ROS GI: Present: as per HPI - Integumentary Integumentary GI: Present: as per HPI - Psychiatric ROS Psychiatric GI: Present: as per HPI - Endocrine Endocrine IM: Present: as per HPI - Constitutional Vitals: Temp Pulse Resp BP Pulse Ox 97.7 F 75 14 106/65 95 01/14/17 08:08 01/14/17 08:08 01/14/17 08:08 01/14/17 08:08 01/14/17 08:25 General appearance: Present: cooperative, A&O X 1 - Head Head exam: Present: atraumatic, normocephalic - Eye Eye exam: Present: normal appearance, sclera anicteric - ENT ENT exam: Present: mucous membranes moist Additional comments: KLETSEL DEHE WINTUN - Neck Neck exam general surgery: Present: normal inspection, trachea midline - Respiratory Respiratory exam: Present: CTAB - Cardiovascular Cardiovascular exam: Present: RRR, +S1, +S2 - GI/Abdominal GI/Abdominal exam: Present: distended, normal bowel sounds, tenderness - Rectal Rectal exam: Present: deferred - Extremities Exam Extremities exam: Present: warm - Neurological Exam Neurological exam: Present: altered - Psychiatric Psychiatric exam: Present: normal affect, normal mood - Skin Skin exam: Present: dry, intact, warm Results - Labs CBC & Chem 7: 01/14/17 03:45 01/14/17 03:45 Labs: Last Result Calcium 9.4 mg/dL (8.6-10.8) 01/14/17 03:45 Entire Visit Hgb 11.2 g/dL (11.5-15.4) L D 01/14/17 03:45 Hct 34.8 % (35.3-44.9) L 01/14/17 03:45 - Impressions Impressions KUB X-Ray 01/14/17 07:32 IMPRESSION: 1. Persistent gaseous distension of the colon, not significantly changed since 01/13/2017. No obvious free air or pneumatosis. D/ / 01/14/2017 08:16:02 Anna Oconnell MD / [email or web address] Interpreting Provider: Anna Oconnell MD Consult Discharge Plan - Plan Referrals: NO,PCP [Primary Care Provider] - <Mildred Glynn - Last Filed: 01/14/17 17:21> Date of Encounter: 01/14/17 Time of Encounter: 14:00 - Time Spent With Patient Total time spent is greater than 50% in coordination of care (as documented) at patient's floor/unit and/or counseling patient: GI History of Present Illness - Data of Consult Requesting Physician: Tim Moran MD - Consult Narrative History of present illness: Ms. Cox is a 76 year old female - Constitutional Vitals: Temp Pulse Resp BP Pulse Ox 97.4 F L 88 20 107/67 96 01/14/17 14:48 01/14/17 14:48 01/14/17 14:48 01/14/17 14:48 01/14/17 14:48 Results - Labs CBC & Chem 7: 01/14/17 03:45 01/14/17 03:45 Labs: Last Result Calcium 9.4 mg/dL (8.6-10.8) 01/14/17 03:45 Entire Visit Hgb 11.2 g/dL (11.5-15.4) L D 01/14/17 03:45 Hct 34.8 % (35.3-44.9) L 01/14/17 03:45 PT 16.8 Seconds (9.4-12.1) H 01/14/17 14:28 - ABG ABG results: PT/INR, D-dimer PT 16.8 Seconds (9.4-12.1) H 01/14/17 14:28 - Impressions Impressions KUB X-Ray 01/14/17 07:32 IMPRESSION: 1. Persistent gaseous distension of the colon, not significantly changed since 01/13/2017. No obvious free air or pneumatosis. D/ / 01/14/2017 08:16:02 Anna Oconnell MD / [email or web address] Interpreting Provider: Anna Oconnell MD - Attending Attestation I examined this patient and my medical decision-making was reviewed with the BUTADIENE COMPRESSOR OPERATOR/PA/Advanced Practice Nurse/Resident Physician. I agree with the documented findings, disposition and treatment plan as described except to the extent set forth below. CT reviewed. Right colon dilation due to most prob colon dysmotility. Does not look like acute pseudoobst ( Joe synd). Treat: of constipation. Do not think neostigmine will benefit. Will try other laxatives
--- NOTE | 2017-01-14 12:21 | General Surgery Progress Note ---
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 continue npo decrease narcotic use as much as able start reglan consult GI for neostigmine will follow hold xeralto currently serial abd exams medical management per hospitalists (2) Generalized weakness Current Visit: No Status: Acute Subjective Patient reports: no new complaints, feels better, still having pain, pain is less, no flatus, no bowel movement, afebrile Objective Vital Signs - Last 8 Hours Temp Pulse Resp BP Pulse Ox 01/14/17 10:45 97.6 F 64 20 103/62 01/14/17 08:25 95 01/14/17 08:08 97.7 F 75 14 106/65 95 01/14/17 04:33 97.7 F 76 14 99/64 95 Intake and Output 01/13/17 01/14/17 01/14/17 23:59 07:59 15:59 Intake Total 120 / 120 1120 / 1120 Output Total 225 / 225 225 / 225 625 / 625 Balance -105 / -105 -225 / -225 495 / 495 Intake: IV Fluids 1000 / 1000 0.9 % Sodium Chloride 1, 1000 / 1000 000 ML @ 50 mls/hr IVC . Q20H RORY Rx#:[id number] Oral 120 / 120 120 / 120 Output: Catheter 225 / 225 225 / 225 625 / 625 Other: Stool Size Small Stool Consistency liquid Stool Color Brown Weight 101.9 kg Blood Glucose* 137 186 152 Patient Weight 01/14/17 23:59 Weight 101.9 kg - General physical appearance no distress, moderate pain, chronically ill - Eyes PERRL, normal ocular movement - ENT normal mucosa, normocephalic - Neck Neck exam: trachea midline - Respiratory normal expansion, clear to auscultation - Cardiovascular Cardiovascular exam: Present: RRR - Abdomen Abdomen: Present: soft, tympanic, distended, tender. Absent: bowel sounds present, guarding, rebound Abdominal Tenderness: diffusely - Integumentary no growths - Neurologic CN 2-12 grossly intact - Musculoskeletal normal posture - Psychiatric oriented to person - Labs 01/14/17 03:45 01/14/17 03:45 Short CBC 01/14/17 Range/Units 03:45 WBC 10.0 (4.3-11.1) K/mcL Hgb 11.2 L D (11.5-15.4) g/dL Hct 34.8 L (35.3-44.9) % Plt Count 217 (140-400) K/mcL Neutrophils # 8.6 (1.6-8.9) K/mcL BMP 01/14/17 Range/Units 03:45 Sodium 138 (136-145) mEq/L Potassium 4.1 (3.5-4.5) mEq/L Chloride 102 (98-109) mEq/L Carbon Dioxide 21 (19-29) mEq/L BUN 67 H (7-20) mg/dL Creatinine 1.82 H (0.57-1.11) mg/dL Glucose 207 H (70-99) mg/dL Calcium 9.4 (8.6-10.8) mg/dL Vital Signs Temp Pulse Resp BP Pulse Ox 01/14/17 10:45 97.6 F 64 20 103/62 01/14/17 08:25 95 01/14/17 08:08 97.7 F 75 14 106/65 95 01/14/17 04:33 97.7 F 76 14 99/64 95 01/14/17 00:14 98.6 F 84 18 111/72 95 01/13/17 19:19 97.5 F L 81 18 94/59 94 01/13/17 14:51 96.8 F L 93 18 105/65 96 Intake and Output 01/13/17 01/14/17 01/14/17 23:59 07:59 15:59 Intake Total 120 / 120 1120 / 1120 Output Total 225 / 225 225 / 225 625 / 625 Balance -105 / -105 -225 / -225 495 / 495 Intake: IV Fluids 1000 / 1000 0.9 % Sodium Chloride 1, 1000 / 1000 000 ML @ 50 mls/hr IVC . Q20H RORY Rx#:[id number] Oral 120 / 120 120 / 120 Output: Catheter 225 / 225 225 / 225 625 / 625 Other: Stool Size Small Stool Consistency liquid Stool Color Brown Weight 101.9 kg Blood Glucose* 137 186 152 Patient Weight 01/14/17 23:59 Weight 101.9 kg Consult Discharge Plan - Plan Referrals: NO,PCP [Primary Care Provider] -
[2017-01-14 15:07] LABS: INR 1.5; Prothrombin Time 16.8 Seconds (9.4-12.1)
[2017-01-14 15:12] LABS: Magnesium 2.1 mg/dL (1.6-2.6); Phosphorous 3.6 mg/dL (2.3-4.7)
[2017-01-14] MEDS: *HR* Heparin 5,000 UNIT/ML VIAL SQ SCH (17:16)
--- NOTE | 2017-01-14 18:27 | Internal Med Progress Note ---
Date of Encounter: 01/14/17 Time of Encounter: 10:00 - Assessment and plan (1) Congestive heart failure Current Visit: No Status: Chronic Assessment and plan: No evidence of acute decompensation. Per chart review her EF in the past was 25 -30%. We will have to be extremely cautious with IV fluid hydration. She was just admitted for CHF exacerbation and fluid overload and therefore I will stop her IV fluids at this time. Qualifiers: Congestive heart failure type: combined Congestive heart failure chronicity : chronic Qualified Code(s): I50.42 - Chronic combined systolic (congestive) and diastolic (congestive) heart failure (2) Atrial fibrillation Current Visit: No Status: Chronic Assessment and plan: Continue with oral diltiazem. hold Xarelto. Monitor on telemetry. Qualifiers: Atrial fibrillation type: chronic Qualified Code(s): I48.2 - Chronic atrial fibrillation (3) CKD (chronic kidney disease), stage IV Current Visit: No Status: Chronic Assessment and plan: Discussed with nephrology. Creatinine is at her baseline. Avoid nephrotoxins. Monitor BUN and creatinine. Adjust medication doses to kidney function. I will stop IV fluids at this time due to history of CHF. (4) Ischemic cardiomyopathy Current Visit: No Status: Chronic (5) MGUS (monoclonal gammopathy of unknown significance) Current Visit: No Status: Chronic (6) History of seizure Current Visit: Yes Status: Acute (7) Constipation due to pain medication Current Visit: Yes Status: Acute (8) Joe's syndrome Current Visit: Yes Status: Acute Assessment and plan: Appreciate recommendations from surgery service. We have tried enema's with no response. The patient is not on any opiates at this time. Awaiting GI and blood regarding neostigmine treatment. - Subjective Interval history: 01/14/2017: She reports abdominal pain and tenderness to palpation, with no nausea or vomiting. She has been nothing by mouth. She was sent for evaluation in the hospital for severe constipation. 01/13/2017: She was admitted yesterday for constipation. She is a poor historian. She cannot tell me when she had her last bowel movement. Review of her chart she was disimpacted in the ED and she had a soapsuds enema. She reports mild abdominal pain but no nausea or vomiting. - Constitutional Vitals: Temp Pulse Resp BP Pulse Ox 97.4 F L 88 20 107/67 96 01/14/17 14:48 01/14/17 14:48 01/14/17 14:48 01/14/17 14:48 01/14/17 14:48 General appearance: Present: A&O X 3, answers questions appropriately - Eye Eye exam: Present: PERRL, conjuntiva pink, sclera anicteric Pupils: Present: PERRL - Respiratory Respiratory exam: Present: CTAB. Absent: accessory muscle use, rales, rhonchi, wheezes - Cardiovascular Cardiovascular exam: Present: RRR, +S1, +S2. Absent: diastolic murmur, gallop, rubs, systolic murmur - GI/Abdominal GI/Abdominal exam: Present: distended (Moderately distended, soft, tender and tympanic to percussion), hypoactive bowel sounds, normal bowel sounds, soft, tenderness, no peritoneal signs - Extremities Exam Extremities exam: Present: warm, radial pulses palpable and symetrical. Absent : calf tenderness, cyanotic, pedal edema Internal Medicine: Result - Labs CBC & Chem 7: 01/14/17 03:45 01/14/17 03:45 Labs: Short CBC 01/14/17 Range/Units 03:45 WBC 10.0 (4.3-11.1) K/mcL Hgb 11.2 L D (11.5-15.4) g/dL Hct 34.8 L (35.3-44.9) % Plt Count 217 (140-400) K/mcL Neutrophils # 8.6 (1.6-8.9) K/mcL BMP 01/14/17 03:45 Sodium 138 Potassium 4.1 Chloride 102 Carbon Dioxide 21 BUN 67 H Creatinine 1.82 H Glucose 207 H Calcium 9.4 - ABG Interpretation ABG results: PT/INR, D-dimer PT 16.8 Seconds (9.4-12.1) H 01/14/17 14:28 - Impressions Impressions KUB X-Ray 01/14/17 07:32 IMPRESSION: 1. Persistent gaseous distension of the colon, not significantly changed since 01/13/2017. No obvious free air or pneumatosis. D/ / 01/14/2017 08:16:02 Anna Oconnell MD / lgray Interpreting Provider: Anna Oconnell MD Consult Discharge Plan - Plan Referrals: NO,PCP [Non-Partnered Physician] -
[2017-01-15] MEDS: Insulin LISPRO 300 UNITS/3 ML VIAL SQ SCH ×4 (00:48→18:49)
[2017-01-15 04:32] LABS: Hematocrit 34.7 % (35.3-44.9); Hemoglobin 11.5 g/dL (11.5-15.4); Lymphocytes # 0.4 K/mcL (0.6-4.6); Mean Corpuscular HGB Conc 33.1 g/dL (31.6-35.5); Mean Corpuscular Hemoglobin 27.4 pg (28.0-33.3); Mean Corpuscular Volume 82.6 fL (83.0-100.0); Mean Platelet Volume 9.9 fL (9.4-12.4); Platelet Count 233 K/mcL (140-400); Red Cell Distribution Width 17.4 % (11.5-14.5)
[2017-01-15 05:06] LABS: Calcium 9.3 mg/dL (8.6-10.8); Eosinophils # 0.2 K/mcL (0.0-0.6); Monocytes # 0.4 K/mcL (0.0-1.3); Neutrophils # 8.9 K/mcL (1.6-8.9); Platelet Estimate Normal (Normal); Potassium 4.4 mEq/L (3.5-4.5)
[2017-01-15] MEDS: *HR* Heparin 5,000 UNIT/ML VIAL SQ SCH ×2 (07:44→17:16)
[2017-01-15] MEDS: levETIRAcetam 250 MG TABLET PO SCH ×2 (08:41→21:27)
[2017-01-15] MEDS: Ranolazine 500 MG TAB.ER.12H PO SCH ×2 (08:41→21:27)
[2017-01-15] MEDS: Diltiazem CD (24hr) 180 MG CAPSULE PO SCH (08:41)
[2017-01-15] MEDS: Potassium Effervescent 25 MEQ TABLET.EFF PO SCH ×2 (08:42→21:27)
[2017-01-15] MEDS: Sennosides/Docusate Sodium TABLET PO SCH ×2 (08:42→21:27)
[2017-01-15] MEDS: Isosorbide MONOnitrate (24 HR) 30 MG TAB.ER.24H PO SCH (08:42)
--- NOTE | 2017-01-15 11:26 | General Surgery Progress Note ---
Date of Encounter: 01/15/17 Time of Encounter: 16:20 - Assessment and Plan (1) Dilatation of colon Current Visit: Yes Status: Acute Patient states that she is feeling better Continue reglan, senna, miralax GI consulted- follow recommendations No surgical intervention indicated at this time. Surgery will sign off and defer to GI for management. Please call with any further questions/concerns. Subjective Patient reports: no new complaints, feels better, still having pain, pain is less, flatus, bowel movement (01/14/17 (small)), shortness of breath, afebrile Objective Vital Signs - Last 8 Hours Temp Pulse Resp BP Pulse Ox 01/15/17 08:45 95 01/15/17 08:20 97.3 F L 83 18 122/57 95 01/15/17 04:18 97.4 F L 81 12 105/58 97 Intake and Output 01/14/17 01/15/17 01/15/17 23:59 07:59 15:59 Intake Total 50 / 50 0 / 0 240 / 240 Output Total 0 / 0 0 / 0 Balance 50 / 50 0 / 0 240 / 240 Intake: Oral 50 / 50 0 / 0 240 / 240 Output: Urine 0 / 0 0 / 0 Other: # Bowel Movements 0 Weight 105.5 kg Blood Glucose* 187 177 Patient Weight 01/15/17 23:59 Weight 105.5 kg - General physical appearance moderate distress, chronically ill, obese - Eyes normal ocular movement - ENT dry mucosa, atraumatic, normocephalic - Neck Neck exam: trachea midline - Respiratory normal respiratory effort, clear to auscultation, other (diminished breath sounds bilaterally; conversational dyspnea noted) - Cardiovascular Cardiovascular exam: Present: RRR - Abdomen Abdomen: Present: bowel sounds present (minimal), soft, distended, tender Abdominal Tenderness: diffusely - Genitourinary other (rivero catheter to SD with dark, yellow urine noted) - Integumentary no rash, no growths - Neurologic CN 2-12 grossly intact - Musculoskeletal other (deconditioning noted) - Psychiatric oriented to person, oriented to place, other (hard of hearing) - Labs 01/16/17 04:30 01/16/17 04:30 Diabetes panel 01/15/17 Range/Units 03:34 Sodium 136 (136-145) mEq/L Potassium 4.4 (3.5-4.5) mEq/L Chloride 100 (98-109) mEq/L Carbon Dioxide 19 (19-29) mEq/L BUN 70 H (7-20) mg/dL Creatinine 1.90 H (0.57-1.11) mg/dL Glucose 178 H (70-99) mg/dL Calcium 9.3 (8.6-10.8) mg/dL Calcium panel 01/14/17 01/15/17 Range/Units 14:28 03:34 Calcium 9.3 (8.6-10.8) mg/dL Phosphorus 3.6 (2.3-4.7) mg/dL Pituitary panel 01/15/17 Range/Units 03:34 Sodium 136 (136-145) mEq/L Potassium 4.4 (3.5-4.5) mEq/L Chloride 100 (98-109) mEq/L Carbon Dioxide 19 (19-29) mEq/L BUN 70 H (7-20) mg/dL Creatinine 1.90 H (0.57-1.11) mg/dL Glucose 178 H (70-99) mg/dL Calcium 9.3 (8.6-10.8) mg/dL Adrenal panel 01/15/17 Range/Units 03:34 Sodium 136 (136-145) mEq/L Potassium 4.4 (3.5-4.5) mEq/L Chloride 100 (98-109) mEq/L Carbon Dioxide 19 (19-29) mEq/L BUN 70 H (7-20) mg/dL Creatinine 1.90 H (0.57-1.11) mg/dL Glucose 178 H (70-99) mg/dL Calcium 9.3 (8.6-10.8) mg/dL Consult Discharge Plan - Plan Referrals: NO,PCP [Non-Partnered Physician] - - Attending Attestation I examined this patient and my medical decision-making was reviewed with the MD PHYSICIAN DERMATOLOGIST/PA/Advanced Practice Nurse/Resident Physician. I agree with the documented findings, disposition and treatment plan as described except to the extent set forth below. I examined this patient and my medical decision-making was reviewed with the MD PHYSICIAN DERMATOLOGIST/PA/Advanced Practice Nurse/Resident Physician. I agree with the documented findings, disposition and treatment plan as described except to the extent set forth below.
[2017-01-15] MEDS: Acetaminophen 325 MG TABLET PO PRN ×2 (12:05→21:46)
[2017-01-15] MEDS ORDERED: Clinimix E 5%-15% SOLUTION 2,000 ML with MVI, adult with vitamin K 10 ML IVC SCH (17:00)
[2017-01-15] MEDS: 0.9 % Sodium Chloride 1,000 ML IVC SCH (17:15)
--- NOTE | 2017-01-15 17:20 | Internal Med Progress Note ---
Date of Encounter: 01/15/17 Time of Encounter: 13:00 - Assessment and plan (1) Congestive heart failure Current Visit: No Status: Chronic Assessment and plan: 01/15/2017: Will start on judicious IV fluid hydration given the patient has no oral intake and creatinine as going up. 01/14/2017: No evidence of acute decompensation. Per chart review her EF in the past was 25-30%. We will have to be cautious with IV fluid hydration. She was just admitted for CHF exacerbation and fluid overload and therefore I will stop her IV fluids at this time. Qualifiers: Congestive heart failure type: combined Congestive heart failure chronicity : chronic Qualified Code(s): I50.42 - Chronic combined systolic (congestive) and diastolic (congestive) heart failure (2) Atrial fibrillation Current Visit: No Status: Chronic Assessment and plan: Continue with oral diltiazem. hold Xarelto for possible surgical intervention. Monitor on telemetry. Qualifiers: Atrial fibrillation type: chronic Qualified Code(s): I48.2 - Chronic atrial fibrillation (3) CKD (chronic kidney disease), stage IV Current Visit: No Status: Chronic Assessment and plan: Discussed with nephrology. Creatinine is at her baseline. Avoid nephrotoxins. Monitor BUN and creatinine. Adjust medication doses to kidney function. I will stop IV fluids at this time due to history of CHF. (4) Ischemic cardiomyopathy Current Visit: No Status: Chronic (5) MGUS (monoclonal gammopathy of unknown significance) Current Visit: No Status: Chronic (6) History of seizure Current Visit: Yes Status: Acute (7) Constipation due to pain medication Current Visit: Yes Status: Acute (8) Joe's syndrome Current Visit: Yes Status: Acute Assessment and plan: 01/15/2017: I discussed the case with general surgery. They have no additional recommendations at this time. We will follow up with GI. We will obtain a CT of the abdomen and pelvis. The patient did pass gas and small bowel movement. 01/14/2017: Appreciate recommendations from surgery service. We have tried enema's with no response. The patient is not on any opiates at this time. Awaiting GI and blood regarding neostigmine treatment. - Subjective Interval history: 01/15/2017: Patient reports abdominal pain and distention mildly improved from yesterday, she has passed gas but no bowel movement yet. 01/14/2017: She reports abdominal pain and tenderness to palpation, with no nausea or vomiting. She has been nothing by mouth. She was sent for evaluation in the hospital for severe constipation. 01/13/2017: She was admitted yesterday for constipation. She is a poor historian. She cannot tell me when she had her last bowel movement. Review of her chart she was disimpacted in the ED and she had a soapsuds enema. She reports mild abdominal pain but no nausea or vomiting. - Constitutional Vitals: Temp Pulse Resp BP Pulse Ox 96.4 F L 66 18 106/69 94 01/15/17 15:43 01/15/17 15:43 01/15/17 15:43 01/15/17 15:43 01/15/17 15:43 General appearance: Present: A&O X 3, answers questions appropriately - Eye Eye exam: Present: PERRL, conjuntiva pink, sclera anicteric Pupils: Present: PERRL - Respiratory Respiratory exam: Present: CTAB. Absent: accessory muscle use, rales, rhonchi, wheezes - Cardiovascular Cardiovascular exam: Present: RRR, +S1, +S2. Absent: diastolic murmur, gallop, rubs, systolic murmur - GI/Abdominal GI/Abdominal exam: Present: diminished bowel sounds, distended (Tympanic), soft , tenderness, no peritoneal signs Internal Medicine: Result - Labs CBC & Chem 7: 01/15/17 03:34 01/15/17 03:34 Labs: Short CBC 01/15/17 Range/Units 03:34 WBC 9.9 (4.3-11.1) K/mcL Hgb 11.5 (11.5-15.4) g/dL Hct 34.7 L (35.3-44.9) % Plt Count 233 (140-400) K/mcL Neutrophils # 8.9 (1.6-8.9) K/mcL BMP 01/15/17 03:34 Sodium 136 Potassium 4.4 Chloride 100 Carbon Dioxide 19 BUN 70 H Creatinine 1.90 H Glucose 178 H Calcium 9.3 - ABG Interpretation ABG results: PT/INR, D-dimer PT 16.8 Seconds (9.4-12.1) H 01/14/17 14:28 - Impressions Impressions Abdomen/Pelvis CT 01/15/17 11:36 IMPRESSION: 1. Slight interval increase in size of small bowel dilation with focal transition in the mid pelvis. Findings are suggestive of at least partial small bowel obstruction. 2. Interval decrease in colonic dilation. 3. Anasarca with trace ascites, subcutaneous edema and bilateral pleural effusions. D/ / 01/15/2017 13:39:36 Bobbi Blanco MD / Susan Pineda Interpreting Provider: Bobbi Blanco MD Chest X-Ray 01/15/17 15:24 IMPRESSION: 1. Interval placement of right arm PICC, with tip in satisfactory position overlying the SVC. 2. Stable cardiomegaly. 3. Slight interval improvement of small bilateral pleural effusions and bibasilar airspace consolidation, most likely passive atelectasis. D/ / Isaias Baugh MD / Isaias Baugh MD Interpreting Provider: Isaias Baugh MD Consult Discharge Plan - Plan Referrals: NO,PCP [Non-Partnered Physician] -
[2017-01-16] MEDS: Insulin LISPRO 300 UNITS/3 ML VIAL SQ SCH ×5 (00:23→21:18)
[2017-01-16 04:51] LABS: Basophils % 0.1 %; Eosinophils % 0.5 %; Hematocrit 31.3 % (35.3-44.9); Hemoglobin 10.1 g/dL (11.5-15.4); Immature Granulocytes % 1.1 % (0-4); Lymphocytes # 0.4 K/mcL (0.6-4.6); Lymphocytes % 4.6 %; Mean Corpuscular HGB Conc 32.3 g/dL (31.6-35.5); Mean Corpuscular Hemoglobin 26.6 pg (28.0-33.3); Mean Corpuscular Volume 82.6 fL (83.0-100.0); Mean Platelet Volume 9.6 fL (9.4-12.4); Monocytes # 0.8 K/mcL (0.0-1.3); Monocytes % 9.7 %; Neutrophils # 6.7 K/mcL (1.6-8.9); Platelet Count 213 K/mcL (140-400); Red Blood Count 3.79 M/mcL (3.82-4.97); Red Cell Distribution Width 17.3 % (11.5-14.5)
[2017-01-16 05:16] LABS: Magnesium 1.8 mg/dL (1.6-2.6); Phosphorous 3.3 mg/dL (2.3-4.7); Potassium 4.2 mEq/L (3.5-4.5)
[2017-01-16 05:53] LABS: Platelet Estimate Normal (Normal)
[2017-01-16] MEDS: *HR* Heparin 5,000 UNIT/ML VIAL SQ SCH ×2 (06:06→16:58)
[2017-01-16] MEDS: levETIRAcetam 250 MG TABLET PO SCH ×2 (09:23→21:17)
[2017-01-16] MEDS: Isosorbide MONOnitrate (24 HR) 30 MG TAB.ER.24H PO SCH (09:23)
[2017-01-16] MEDS: Sennosides/Docusate Sodium TABLET PO SCH ×2 (09:24→21:17)
[2017-01-16] MEDS: Diltiazem CD (24hr) 180 MG CAPSULE PO SCH (09:24)
[2017-01-16] MEDS: Ranolazine 500 MG TAB.ER.12H PO SCH ×2 (09:25→21:17)
[2017-01-16] MEDS: Potassium Effervescent 25 MEQ TABLET.EFF PO SCH ×2 (09:26→21:17)
--- NOTE | 2017-01-16 10:30 | Gastroenterology Progress Note ---
<Angelina Donovan - Last Filed: 01/16/17 12:00> Date of Encounter: 01/16/17 Time of Encounter: 10:50 - Assessment and plan (1) Dilatation of colon Current Visit: Yes Status: Acute Assessment and plan: Patient has had small BM and passed gas, colonic distension improved in latest imaging. (2) Bowel obstruction Current Visit: No Status: Acute Assessment and plan: 01/15/17 imaging shows transition point in mid pelvis representing at least a PSBO. Qualifiers: Intestinal obstruction type: unspecified Qualified Code(s): K56.60 - Unspecified intestinal obstruction - Time Spent With Patient Total time spent is greater than 50% in coordination of care (as documented) at patient's floor/unit and/or counseling patient: less than 15 minutes - Subjective Interval history: Patient was seen at bedside. She states feeling much better. Per nurse assistant import manager at bedside, patient had a large bowel movement today. - Constitutional Vitals: Temp Pulse Resp BP Pulse Ox 96.3 F L 72 16 120/73 97 01/16/17 06:58 01/16/17 06:58 01/16/17 06:58 01/16/17 06:58 01/16/17 09:26 General appearance: Present: cooperative, A&O X 1 - Head Head exam: Present: atraumatic, normocephalic - Eye Eye exam: Present: normal appearance, sclera anicteric - ENT ENT exam: Present: mucous membranes moist - Neck Neck exam general surgery: Present: normal inspection, trachea midline - Respiratory Respiratory exam: Present: CTAB - Cardiovascular Cardiovascular exam: Present: RRR, +S1, +S2 - GI/Abdominal GI/Abdominal exam: Present: soft, tenderness, no peritoneal signs - Rectal Rectal exam: Present: deferred - Extremities Exam Extremities exam: Present: warm - Neurological Exam Neurological exam: Present: no focal deficits - Psychiatric Psychiatric exam: Present: normal affect, normal mood - Skin Skin exam: Present: dry, intact, warm Results - Labs CBC & Chem 7: 01/16/17 04:30 01/16/17 04:30 Labs: Last Result Calcium 9.0 mg/dL (8.6-10.8) 01/16/17 04:30 Triglycerides 168 mg/dL (< 150) H 01/15/17 13:34 Entire Visit Hgb 10.1 g/dL (11.5-15.4) L 01/16/17 04:30 Hct 31.3 % (35.3-44.9) L 01/16/17 04:30 PT 16.8 Seconds (9.4-12.1) H 01/14/17 14:28 - ABG ABG results: PT/INR, D-dimer PT 16.8 Seconds (9.4-12.1) H 01/14/17 14:28 - Impressions Impressions Abdomen/Pelvis CT 01/15/17 11:36 IMPRESSION: 1. Slight interval increase in size of small bowel dilation with focal transition in the mid pelvis. Findings are suggestive of at least partial small bowel obstruction. 2. Interval decrease in colonic dilation. 3. Anasarca with trace ascites, subcutaneous edema and bilateral pleural effusions. D/ / 01/15/2017 13:39:36 Bobbi Blanco MD / Susan Pineda Interpreting Provider: Bobbi Blanco MD Chest X-Ray 01/15/17 15:24 IMPRESSION: 1. Interval placement of right arm PICC, with tip in satisfactory position overlying the SVC. 2. Stable cardiomegaly. 3. Slight interval improvement of small bilateral pleural effusions and bibasilar airspace consolidation, most likely passive atelectasis. D/ / Isaias Baugh MD / Isaias Baugh MD Interpreting Provider: Isaias Baugh MD Consult Discharge Plan - Plan Referrals: NO,PCP [Non-Partnered Physician] - <Mildred Glynn - Last Filed: 01/16/17 21:04> Date of Encounter: 01/16/17 Time of Encounter: 15:00 - Time Spent With Patient Total time spent is greater than 50% in coordination of care (as documented) at patient's floor/unit and/or counseling patient: - Constitutional Vitals: Temp Pulse Resp BP Pulse Ox 97.6 F 81 18 132/84 96 01/16/17 19:46 01/16/17 19:46 01/16/17 19:46 01/16/17 19:46 01/16/17 19:46 Results - Labs CBC & Chem 7: 01/16/17 04:30 01/16/17 04:30 Labs: Last Result Calcium 9.0 mg/dL (8.6-10.8) 01/16/17 04:30 Triglycerides 168 mg/dL (< 150) H 01/15/17 13:34 Entire Visit Hgb 10.1 g/dL (11.5-15.4) L 01/16/17 04:30 Hct 31.3 % (35.3-44.9) L 01/16/17 04:30 PT 16.8 Seconds (9.4-12.1) H 01/14/17 14:28 - ABG ABG results: PT/INR, D-dimer PT 16.8 Seconds (9.4-12.1) H 01/14/17 14:28 - Attending Attestation I examined this patient and my medical decision-making was reviewed with the CULINARY ARTS TEACHER/PA/Advanced Practice Nurse/Resident Physician. I agree with the documented findings, disposition and treatment plan as described except to the extent set forth below.
[2017-01-16] MEDS ORDERED: D10% in Water 500 ML IVC PRN (12:04)
[2017-01-16] MEDS: 0.9 % Sodium Chloride 1,000 ML IVC SCH (12:53)
[2017-01-16] MEDS: Insulin DETEMIR 100 UNIT/ML X5UNITS SQ SCH ×2 (14:36→21:18)
[2017-01-16] MEDS ORDERED: Clinimix E 5%-15% SOLUTION 2,000 ML with MVI, adult with vitamin K 10 ML IVC SCH (17:00)
--- NOTE | 2017-01-16 19:39 | Internal Med Progress Note ---
Date of Encounter: 01/16/17 Time of Encounter: 11:00 - Assessment and plan (1) Dilatation of colon Current Visit: Yes Status: Acute Assessment and plan: CT of the abdomen and pelvis shows colonic distention with transition point in the pelvis representing atelectasis artery small bowel obstruction. improving slowly. Patient had a bowel movement today. She is tolerating ice chips well. Continue laxatives. Advance diet to liquids. If patient tolerates diet I will decrease TPN slowly. Repeat KUB in the morning. (2) Partial small bowel obstruction Current Visit: Yes Status: Acute Assessment and plan: Plan as above. (3) Systolic heart failure, chronic Current Visit: Yes Status: Acute Assessment and plan: LVEF 25-30%. Not in acute decompensation. Continue home medications. (4) Uncontrolled diabetes mellitus Current Visit: No Status: Chronic Assessment and plan: Blood sugars are in the 200s, likely secondary to TPN. I will start Levemir 10 units twice a day. Continue sliding scale insulin. Diabetic diet. Qualifiers: Diabetes mellitus type: type 2 Diabetes mellitus complication status: with hyperglycemia Diabetes mellitus jail insulin use: with metal leaf layer use Qualified Code(s): E11.65 - Type 2 diabetes mellitus with hyperglycemia; Z79.4 - [facility]iary (current) use of insulin (5) Severe mitral regurgitation Current Visit: No Status: Chronic - Subjective Interval history: Patient had a large bowel movement today. She feels better. Mild abdominal pain. - Constitutional Vitals: Temp Pulse Resp BP Pulse Ox 97.7 F 72 18 115/67 97 01/16/17 15:21 01/16/17 15:21 01/16/17 15:21 01/16/17 15:21 01/16/17 15:21 General appearance: Present: cooperative, A&O X 3, pleasant, no acute distress, answers questions appropriately - Eye Eye exam: Present: PERRL, sclera anicteric - Neck Neck exam general surgery: Present: supple, trachea midline. Absent: lymphadenopathy - Respiratory Respiratory exam: Present: CTAB - Cardiovascular Cardiovascular exam: Present: irregular rhythm - GI/Abdominal GI/Abdominal exam: Present: distended, hyperactive bowel sounds, soft, tenderness (Mild diffuse tenderness.) - Extremities Exam Extremities exam: Absent: pedal edema - Back Exam Back exam: Absent: CVA tenderness (L), CVA tenderness (R) - Neurological Exam Neurological exam: Present: alert, oriented X3, no focal deficits, strengths equal and symetr throughout. Absent: facial droop, speech deficit - Skin Skin exam: Absent: rash Internal Medicine: Result - Labs CBC & Chem 7: 01/16/17 04:30 01/16/17 04:30 Labs: Short CBC 01/16/17 Range/Units 04:30 WBC 8.0 (4.3-11.1) K/mcL Hgb 10.1 L (11.5-15.4) g/dL Hct 31.3 L (35.3-44.9) % Plt Count 213 (140-400) K/mcL Neutrophils # 6.7 (1.6-8.9) K/mcL BMP 01/16/17 04:30 Sodium 133 L Potassium 4.2 Chloride 98 Carbon Dioxide 22 BUN 71 H Creatinine 1.99 H Glucose 283 H Calcium 9.0 - ABG Interpretation ABG results: PT/INR, D-dimer PT 16.8 Seconds (9.4-12.1) H 01/14/17 14:28 Consult Discharge Plan - Plan Referrals: NO,PCP [Non-Partnered Physician] -
[2017-01-16] MEDS: Acetaminophen 325 MG TABLET PO PRN (21:17)
[2017-01-16] MEDS: Nitroglycerin 0.4 MG TAB.SUBL SL PRN ×2 (23:51→23:58)
[2017-01-17] MEDS: Nitroglycerin 0.4 MG TAB.SUBL SL PRN ×6 (00:04→06:50)
[2017-01-17] MEDS: Insulin LISPRO 300 UNITS/3 ML VIAL SQ SCH ×6 (04:12→21:09)
[2017-01-17 05:17] LABS: Calcium 8.9 mg/dL (8.6-10.8); Phosphorous 2.9 mg/dL (2.3-4.7); Potassium 4.2 mEq/L (3.5-4.5)
[2017-01-17] MEDS: *HR* Heparin 5,000 UNIT/ML VIAL SQ SCH ×2 (05:46→18:57)
[2017-01-17] MEDS: Potassium Effervescent 25 MEQ TABLET.EFF PO SCH ×2 (08:52→21:16)
[2017-01-17] MEDS: Sennosides/Docusate Sodium TABLET PO SCH ×2 (08:52→21:15)
[2017-01-17] MEDS: Ranolazine 500 MG TAB.ER.12H PO SCH ×2 (08:53→21:16)
[2017-01-17] MEDS: Diltiazem CD (24hr) 180 MG CAPSULE PO SCH (08:53)
[2017-01-17] MEDS: Isosorbide MONOnitrate (24 HR) 30 MG TAB.ER.24H PO SCH (09:11)
[2017-01-17] MEDS: levETIRAcetam 250 MG TABLET PO SCH ×2 (09:11→21:16)
[2017-01-17] MEDS: Insulin DETEMIR 100 UNIT/ML X5UNITS SQ SCH (09:49)
--- NOTE | 2017-01-17 18:14 | Internal Med Progress Note ---
Date of Encounter: 01/17/17 Time of Encounter: 11:45 - Assessment and plan (1) Dilatation of colon Current Visit: Yes Status: Acute Assessment and plan: CT of the abdomen and pelvis shows colonic distention with transition point in the pelvis representing atelectasis artery small bowel obstruction. clinically the patient is improving slowly (her abdominal pain is better, she is eating and having bowel movements). However, the KUB showed unchanged colonic dilation. Continue laxatives. Advance diet to soft. stop TPN. (2) Partial small bowel obstruction Current Visit: Yes Status: Acute Assessment and plan: Plan as above. (3) Systolic heart failure, chronic Current Visit: Yes Status: Acute Assessment and plan: LVEF 25-30%. Not in acute decompensation. Continue home medications. (4) Uncontrolled diabetes mellitus Current Visit: No Status: Chronic Assessment and plan: secondary to TPN. TPN stopped this morning and follow up accuchecks are 120-77. Stop levemir. Continue sliding scale insulin. Diabetic diet. Qualifiers: Diabetes mellitus type: type 2 Diabetes mellitus complication status: with hyperglycemia Diabetes mellitus usp insulin use: with watermaster use Qualified Code(s): E11.65 - Type 2 diabetes mellitus with hyperglycemia; Z79.4 - jail (current) use of insulin (5) CKD (chronic kidney disease), stage IV Current Visit: No Status: Chronic Assessment and plan: Creatinine is at her baseline. Avoid nephrotoxins. Monitor BUN and creatinine. (6) Severe mitral regurgitation Current Visit: No Status: Chronic - Subjective Interval history: Patient continues having bowel movements. She tolerated her liquid diet well. Mild lower abdominal pain, this is improved since admission. Patient complained of chest pain overnight and received 8 doses of SL nitroglycerin. Her daughter came this morning and explained that patient overmedicates herself with nitroglycerin at home. hold nitroglycerin - Constitutional Vitals: Temp Pulse Resp BP Pulse Ox 98.5 F 76 18 122/69 99 01/17/17 15:15 01/17/17 15:15 01/17/17 15:15 01/17/17 15:15 01/17/17 15:15 General appearance: Present: cooperative, A&O X 3, pleasant, no acute distress, answers questions appropriately - Eye Eye exam: Present: PERRL - Neck Neck exam general surgery: Present: supple, trachea midline. Absent: lymphadenopathy - Respiratory Respiratory exam: Present: decreased breath sounds (at lung bases) - Cardiovascular Cardiovascular exam: Present: RRR - GI/Abdominal GI/Abdominal exam: Present: hyperactive bowel sounds, soft. Absent: distended, tenderness - Extremities Exam Extremities exam: Present: pedal edema - Neurological Exam Neurological exam: Present: alert. Absent: facial droop, speech deficit - Skin Skin exam: Present: dry. Absent: rash Internal Medicine: Result - Labs CBC & Chem 7: 01/16/17 04:30 01/17/17 04:25 Labs: BMP 01/17/17 04:25 Sodium 133 L Potassium 4.2 Chloride 99 Carbon Dioxide 22 BUN 67 H Creatinine 1.63 H Glucose 164 H Calcium 8.9 - ABG Interpretation ABG results: PT/INR, D-dimer PT 16.8 Seconds (9.4-12.1) H 01/14/17 14:28 - Impressions Impressions KUB X-Ray 01/17/17 06:00 IMPRESSION: No significant change in bilateral pleural effusions and bibasilar atelectasis. Dilated small bowel and gaseous distention of the colon are similar to prior. Findings are consistent with ongoing partial small bowel obstruction. D/ : / 01/17/2017 13:23:26 Janeth Blanco MD / man Interpreting Provider: Janeth Blanco MD Chest X-Ray 01/17/17 12:24 IMPRESSION: No significant change in bilateral pleural effusions and bibasilar atelectasis. Dilated small bowel and gaseous distention of the colon are similar to prior. Findings are consistent with ongoing partial small bowel obstruction. D/ : / 01/17/2017 13:23:26 Janeth Blanco MD / man Interpreting Provider: Janeth Blanco MD Consult Discharge Plan - Plan Referrals: NO,PCP [Non-Partnered Physician] -
[2017-01-17] MEDS: *HR* LORazepam 2 MG/ML VIAL IVP PRN (23:49)
[2017-01-18] MEDS: Insulin LISPRO 300 UNITS/3 ML VIAL SQ SCH ×6 (01:41→21:29)
[2017-01-18 05:13] LABS: Basophils % 0.5 %; Eosinophils % 0.5 %; Hematocrit 35.4 % (35.3-44.9); Immature Granulocytes % 3.7 % (0-4); Lymphocytes # 0.5 K/mcL (0.6-4.6); Lymphocytes % 7.8 %; Mean Corpuscular HGB Conc 31.1 g/dL (31.6-35.5); Mean Corpuscular Hemoglobin 26.1 pg (28.0-33.3); Mean Corpuscular Volume 83.9 fL (83.0-100.0); Monocytes # 0.6 K/mcL (0.0-1.3); Monocytes % 9.8 %; Platelet Count 200 K/mcL (140-400); Red Blood Count 4.22 M/mcL (3.82-4.97); Red Cell Distribution Width 17.3 % (11.5-14.5); Segmented Neutrophils % 77.7 %
[2017-01-18 05:24] LABS: Calcium 8.7 mg/dL (8.6-10.8); Potassium 4.8 mEq/L (3.5-4.5)
[2017-01-18] MEDS: *HR* Heparin 5,000 UNIT/ML VIAL SQ SCH ×2 (06:19→18:14)
[2017-01-18] MEDS: Ranolazine 500 MG TAB.ER.12H PO SCH ×2 (09:33→20:52)
[2017-01-18] MEDS: Diltiazem CD (24hr) 180 MG CAPSULE PO SCH (09:33)
[2017-01-18] MEDS: Isosorbide MONOnitrate (24 HR) 30 MG TAB.ER.24H PO SCH (09:34)
[2017-01-18] MEDS: Potassium Effervescent 25 MEQ TABLET.EFF PO SCH (09:34)
[2017-01-18] MEDS: Sennosides/Docusate Sodium TABLET PO SCH ×2 (09:34→20:52)
[2017-01-18] MEDS: levETIRAcetam 250 MG TABLET PO SCH ×2 (09:35→20:51)
--- NOTE | 2017-01-18 16:37 | Internal Med Progress Note ---
Date of Encounter: 01/18/17 Time of Encounter: 16:37 - Assessment and plan (1) Dilatation of colon Current Visit: Yes Status: Acute Assessment and plan: 01/15: CT of the abdomen and pelvis shows colonic distention with transition point in the pelvis representing atelectasis artery small bowel obstruction. 01/17: KUB showed unchanged colonic dilation. off TPN sicne 01/17. clinically the patient is improving slowly (her abdominal pain is better, she is eating and having bowel movements). Continue laxatives and soft diet. (2) Partial small bowel obstruction Current Visit: Yes Status: Acute Assessment and plan: Plan as above. (3) Systolic heart failure, chronic Current Visit: Yes Status: Acute Assessment and plan: LVEF 25-30%. acute decompensation due to TPN. resume home dose of bumex. fluid restriction. Continue home medications. (4) Uncontrolled diabetes mellitus Current Visit: No Status: Chronic Assessment and plan: secondary to TPN. fasting glucose is 124. Continue sliding scale insulin. Diabetic diet. Qualifiers: Diabetes mellitus type: type 2 Diabetes mellitus complication status: with hyperglycemia Diabetes mellitus care home insulin use: with care home use Qualified Code(s): E11.65 - Type 2 diabetes mellitus with hyperglycemia; Z79.4 - [facility] (current) use of insulin (5) CKD (chronic kidney disease), stage IV Current Visit: No Status: Chronic Assessment and plan: Creatinine is at her baseline. Avoid nephrotoxins. Monitor BUN and creatinine. (6) Severe mitral regurgitation Current Visit: No Status: Chronic - Subjective Interval history: Patient is tolerating her diet well. no nausea. no vomiting. Her son is at bedside and is concerned about her leg swelling. - Constitutional Vitals: Temp Pulse Resp BP Pulse Ox 97.6 F 75 16 110/68 100 01/18/17 12:21 01/18/17 12:21 01/18/17 12:21 01/18/17 12:21 01/18/17 12:21 General appearance: Present: cooperative, A&O X 3, pleasant, no acute distress, answers questions appropriately - Respiratory Respiratory exam: Present: CTAB - Cardiovascular Cardiovascular exam: Present: RRR - GI/Abdominal GI/Abdominal exam: Present: soft, tenderness (mild lower abdominal tenderness). Absent: distended - Extremities Exam Extremities exam: Present: pedal edema (2+ Le swelling) - Back Exam Back exam: Absent: CVA tenderness (L), CVA tenderness (R) - Neurological Exam Neurological exam: Present: alert, oriented X3, no focal deficits, strengths equal and symetr throughout. Absent: facial droop, speech deficit - Skin Skin exam: Present: dry. Absent: rash Internal Medicine: Result - Labs CBC & Chem 7: 01/18/17 04:45 01/18/17 04:45 Labs: Short CBC 01/18/17 Range/Units 04:45 WBC 6.4 (4.3-11.1) K/mcL Hgb 11.0 L (11.5-15.4) g/dL Hct 35.4 (35.3-44.9) % Plt Count 200 (140-400) K/mcL Neutrophils # 5.0 (1.6-8.9) K/mcL BMP 01/18/17 04:45 Sodium 136 Potassium 4.8 H Chloride 104 Carbon Dioxide 23 BUN 51 H Creatinine 1.26 H Glucose 148 H Calcium 8.7 - ABG Interpretation ABG results: PT/INR, D-dimer PT 16.8 Seconds (9.4-12.1) H 01/14/17 14:28 - Impressions Impressions Abdomen/Pelvis CT 01/15/17 11:36 IMPRESSION: 1. Slight interval increase in size of small bowel dilation with focal transition in the mid pelvis. Findings are suggestive of partial small bowel obstruction. 2. Interval decrease in colonic dilation. 3. Anasarca with trace ascites, subcutaneous edema and bilateral pleural effusions. D/ / 01/15/2017 13:39:36 Bobbi Blanco MD / Susan Pineda Interpreting Provider: Bobbi Blanco MD Consult Discharge Plan - Plan Referrals: NO,PCP [Non-Partnered Physician] -
[2017-01-18] MEDS: Acetaminophen 325 MG TABLET PO PRN (18:14)
[2017-01-18] MEDS ORDERED: Nitroglycerin 0.4 MG TAB.SUBL SL PRN (18:15)
[2017-01-18] MEDS: Bumetanide 1 MG TABLET PO SCH (20:51)
[2017-01-18] MEDS: *HR* LORazepam 2 MG/ML VIAL IVP PRN (22:20)
[2017-01-19] MEDS: Insulin LISPRO 300 UNITS/3 ML VIAL SQ SCH ×6 (01:18→20:51)
[2017-01-19] MEDS: Acetaminophen 325 MG TABLET PO PRN ×4 (03:22→23:18)
[2017-01-19 03:32] LABS: Basophils % 0.3 %; Eosinophils # 0.1 K/mcL (0.0-0.6); Eosinophils % 0.9 %; Hematocrit 34.4 % (35.3-44.9); Hemoglobin 10.8 g/dL (11.5-15.4); Immature Granulocytes % 4.4 % (0-4); Immature Platelets 1.7 % (1.1-6.1); Lymphocytes # 0.5 K/mcL (0.6-4.6); Lymphocytes % 7.5 %; Mean Corpuscular HGB Conc 31.4 g/dL (31.6-35.5); Mean Corpuscular Hemoglobin 26.7 pg (28.0-33.3); Mean Corpuscular Volume 84.9 fL (83.0-100.0); Mean Platelet Volume 9.6 fL (9.4-12.4); Monocytes # 0.6 K/mcL (0.0-1.3); Monocytes % 8.2 %; Neutrophils # 5.5 K/mcL (1.6-8.9); Platelet Count 207 K/mcL (140-400); Red Blood Count 4.05 M/mcL (3.82-4.97); Red Cell Distribution Width 17.2 % (11.5-14.5); Segmented Neutrophils % 78.7 %
[2017-01-19 04:46] LABS: Albumin 2.2 g/dL (3.5-5.0); Albumin/Globulin Ratio 0.7 (1.1-2.2); Bilirubin,Direct 0.5 mg/dL (0.0-0.5); Bilirubin,Indirect 0.4 mg/dL (0.0-1.2); Bilirubin,Total 0.9 mg/dL (0.2-1.2); Calcium 8.8 mg/dL (8.6-10.8); Globulin 3.1 g/dL (2.4-3.5); Magnesium 1.7 mg/dL (1.6-2.6); Potassium 4.4 mEq/L (3.5-4.5); Total Protein 5.3 g/dL (6.0-8.3)
[2017-01-19] MEDS: *HR* Heparin 5,000 UNIT/ML VIAL SQ SCH ×2 (05:50→16:53)
[2017-01-19] MEDS: Ranolazine 500 MG TAB.ER.12H PO SCH ×2 (09:35→20:52)
[2017-01-19] MEDS: Bumetanide 1 MG TABLET PO SCH ×2 (09:35→16:53)
[2017-01-19] MEDS: Sennosides/Docusate Sodium TABLET PO SCH ×2 (09:35→20:52)
[2017-01-19] MEDS: Diltiazem CD (24hr) 180 MG CAPSULE PO SCH (09:36)
[2017-01-19] MEDS: Isosorbide MONOnitrate (24 HR) 30 MG TAB.ER.24H PO SCH (09:36)
[2017-01-19] MEDS: levETIRAcetam 250 MG TABLET PO SCH ×2 (09:37→20:52)
[2017-01-19] MEDS ORDERED: Water for inj. (sterile) 10 ML IV ONE ×2 (09:53→18:53)
[2017-01-19] MEDS: *HR* LORazepam 2 MG/ML VIAL IVP PRN ×2 (09:58→18:54)
--- NOTE | 2017-01-19 14:43 | Internal Med Progress Note ---
Date of Encounter: 01/19/17 Time of Encounter: 10:15 - Assessment and plan (1) Dilatation of colon Current Visit: Yes Status: Acute Assessment and plan: 01/15: CT of the abdomen and pelvis shows colonic distention with transition point in the pelvis representing atelectasis artery small bowel obstruction. 01/17: KUB showed unchanged colonic dilation. off TPN since 01/17. clinically the patient is improving slowly (her abdominal pain is better, she is eating and having bowel movements). stop miralax. continue soft diet. KUB in AM (2) Partial small bowel obstruction Current Visit: Yes Status: Acute Assessment and plan: Plan as above. (3) Systolic heart failure, chronic Current Visit: Yes Status: Acute Assessment and plan: 01/03/17: echocardiogram LVEF 25-30%, severe MR, BivICD. 01/18: acute decompensation of systolic heart failure due to TPN. continue bumex and coreg. holding ACEi due to [place]ES. fluid restriction. (4) Uncontrolled diabetes mellitus Current Visit: No Status: Chronic Assessment and plan: secondary to TPN. Off TPN since 01/17. fasting glucose is 139. accuchecks in the 200s. start levemir 7 units hs. Continue sliding scale insulin. Diabetic diet. Qualifiers: Diabetes mellitus type: type 2 Diabetes mellitus complication status: with hyperglycemia Diabetes mellitus terminal clerk insulin use: with terminal clerk use Qualified Code(s): E11.65 - Type 2 diabetes mellitus with hyperglycemia; Z79.4 - emt intermediate (current) use of insulin (5) CKD (chronic kidney disease), stage IV Current Visit: No Status: Chronic Assessment and plan: Creatinine is at her baseline. Avoid nephrotoxins. Monitor BUN and creatinine. (6) Severe mitral regurgitation Current Visit: No Status: Chronic - Subjective Interval history: Patient had a bowel movement this morning. She states that she is having an anxiety attack and just received her dose of ativan. She has chronic anxiety and it gets worse while being in the hospital. - Constitutional Vitals: Temp Pulse Resp BP Pulse Ox 97.4 F L 89 18 149/83 97 01/19/17 12:14 01/19/17 12:14 01/19/17 12:14 01/19/17 12:14 01/19/17 12:14 General appearance: Present: cooperative, A&O X 3, pleasant, no acute distress, answers questions appropriately - Neck Neck exam general surgery: Present: supple, trachea midline. Absent: lymphadenopathy - Respiratory Respiratory exam: Present: decreased breath sounds (at lung bases) - Cardiovascular Cardiovascular exam: Present: RRR - GI/Abdominal GI/Abdominal exam: Present: normal bowel sounds, soft. Absent: distended, tenderness - Extremities Exam Extremities exam: Present: pedal edema (2+ LE edema) - Back Exam Back exam: Absent: CVA tenderness (L), CVA tenderness (R) - Neurological Exam Neurological exam: Present: alert, oriented X3. Absent: facial droop, speech deficit - Skin Skin exam: Absent: rash Internal Medicine: Result - Labs CBC & Chem 7: 01/19/17 03:15 01/19/17 04:00 Labs: Short CBC 01/19/17 Range/Units 03:15 WBC 7.0 (4.3-11.1) K/mcL Hgb 10.8 L (11.5-15.4) g/dL Hct 34.4 L (35.3-44.9) % Plt Count 207 (140-400) K/mcL Neutrophils # 5.5 (1.6-8.9) K/mcL BMP 01/19/17 04:00 Sodium 139 Potassium 4.4 Chloride 106 Carbon Dioxide 25 BUN 43 H Creatinine 1.26 H Glucose 138 H Calcium 8.8 Liver Function 01/19/17 Range/Units 04:00 Total Bilirubin 0.9 (0.2-1.2) mg/dL Direct Bilirubin 0.5 (0.0-0.5) mg/dL AST 38 H (5-34) Units/L ALT 53 (0-55) Units/L Alkaline Phosphatase 134 H (38-126) Units/L Albumin 2.2 L (3.5-5.0) g/dL - ABG Interpretation ABG results: PT/INR, D-dimer PT 16.8 Seconds (9.4-12.1) H 01/14/17 14:28 Consult Discharge Plan - Plan Referrals: NO,PCP [Non-Partnered Physician] -
[2017-01-19] MEDS ORDERED: Insulin DETEMIR 100 UNIT/ML X5UNITS SQ SCH (21:00)
[2017-01-20 04:40] LABS: Basophils % 0.3 %; Eosinophils # 0.1 K/mcL (0.0-0.6); Eosinophils % 1.4 %; Hematocrit 33.4 % (35.3-44.9); Hemoglobin 10.5 g/dL (11.5-15.4); Immature Granulocytes % 4.4 % (0-4); Lymphocytes # 0.5 K/mcL (0.6-4.6); Lymphocytes % 7.1 %; Mean Corpuscular HGB Conc 31.4 g/dL (31.6-35.5); Mean Corpuscular Hemoglobin 26.5 pg (28.0-33.3); Mean Corpuscular Volume 84.3 fL (83.0-100.0); Mean Platelet Volume 9.2 fL (9.4-12.4); Monocytes # 0.5 K/mcL (0.0-1.3); Monocytes % 7.4 %; Neutrophils # 5.1 K/mcL (1.6-8.9); Platelet Count 177 K/mcL (140-400); Red Blood Count 3.96 M/mcL (3.82-4.97); Red Cell Distribution Width 17.1 % (11.5-14.5); Segmented Neutrophils % 79.4 %
[2017-01-20 04:54] LABS: Albumin 2.2 g/dL (3.5-5.0); Albumin/Globulin Ratio 0.7 (1.1-2.2); Bilirubin,Direct 0.5 mg/dL (0.0-0.5); Bilirubin,Indirect 0.3 mg/dL (0.0-1.2); Bilirubin,Total 0.8 mg/dL (0.2-1.2); Calcium 8.8 mg/dL (8.6-10.8); Magnesium 1.4 mg/dL (1.6-2.6); Potassium 3.8 mEq/L (3.5-4.5); Total Protein 5.2 g/dL (6.0-8.3)
[2017-01-20] MEDS: *HR* Heparin 5,000 UNIT/ML VIAL SQ SCH ×2 (06:33→18:19)
[2017-01-20] MEDS ORDERED: Magnesium Sulfate 2 GM in D5% in Water 100 ML IVPB ONE (08:02)
[2017-01-20] MEDS: Insulin LISPRO 300 UNITS/3 ML VIAL SQ SCH ×4 (08:10→20:55)
[2017-01-20] MEDS: Bumetanide 1 MG TABLET PO SCH ×2 (08:16→16:38)
[2017-01-20] MEDS: levETIRAcetam 250 MG TABLET PO SCH ×2 (08:17→21:06)
[2017-01-20] MEDS: Ranolazine 500 MG TAB.ER.12H PO SCH ×2 (08:17→21:06)
[2017-01-20] MEDS: Isosorbide MONOnitrate (24 HR) 30 MG TAB.ER.24H PO SCH (08:17)
[2017-01-20] MEDS: Diltiazem CD (24hr) 180 MG CAPSULE PO SCH (08:23)
--- NOTE | 2017-01-20 09:48 | Internal Med Progress Note ---
Date of Encounter: 01/20/17 Time of Encounter: 09:15 - Assessment and plan (1) Dilatation of colon Current Visit: Yes Status: Acute Assessment and plan: 01/15: CT of the abdomen and pelvis shows colonic distention with transition point in the pelvis representing atelectasis artery small bowel obstruction. 01/17: KUB showed unchanged colonic dilation. off TPN since 01/17. clinically the patient is improving slowly (she is eating and having bowel movements). stop senna. continue soft diet. KUB pending. (2) Partial small bowel obstruction Current Visit: Yes Status: Acute Assessment and plan: Plan as above. (3) Systolic heart failure, chronic Current Visit: Yes Status: Acute Assessment and plan: 01/03/17: echocardiogram LVEF 25-30%, severe MR, BivICD. 01/18: acute decompensation of systolic heart failure due to TPN. 01/20: slowly improving. continue bumex and coreg. holding ACEi due to [place]ES. fluid restriction. (4) Uncontrolled diabetes mellitus Current Visit: No Status: Chronic Assessment and plan: secondary to TPN. Off TPN since 01/17. fasting glucose is 98. stop levemir 7 units hs. Continue sliding scale insulin. Diabetic diet. Qualifiers: Diabetes mellitus type: type 2 Diabetes mellitus complication status: with hyperglycemia Diabetes mellitus buttermaker continuous churn insulin use: with intermediate use Qualified Code(s): E11.65 - Type 2 diabetes mellitus with hyperglycemia; Z79.4 - shelter (current) use of insulin (5) CKD (chronic kidney disease), stage IV Current Visit: No Status: Chronic Assessment and plan: Creatinine is at her baseline. Avoid nephrotoxins. Monitor BUN and creatinine. (6) Severe mitral regurgitation Current Visit: No Status: Chronic - Subjective Interval history: Patient had a loose bowel movement this morning. Per nurse, she was requesting nitroglycerin for her anxiety. - Constitutional Vitals: Temp Pulse Resp BP Pulse Ox 97.8 F 74 16 132/75 94 01/20/17 07:50 01/20/17 07:50 01/20/17 07:50 01/20/17 07:50 01/20/17 07:50 General appearance: Present: cooperative, A&O X 3, pleasant, no acute distress, answers questions appropriately - Respiratory Respiratory exam: Present: CTAB - GI/Abdominal GI/Abdominal exam: Present: hyperactive bowel sounds, soft. Absent: distended, tenderness - Extremities Exam Extremities exam: Present: pedal edema (1+ Le edema) - Neurological Exam Neurological exam: Present: alert, oriented X3, no focal deficits, strengths equal and symetr throughout. Absent: facial droop, speech deficit - Skin Skin exam: Present: dry. Absent: rash Internal Medicine: Result - Labs CBC & Chem 7: 01/20/17 04:20 01/20/17 04:20 Labs: Short CBC 01/20/17 Range/Units 04:20 WBC 6.4 (4.3-11.1) K/mcL Hgb 10.5 L (11.5-15.4) g/dL Hct 33.4 L (35.3-44.9) % Plt Count 177 (140-400) K/mcL Neutrophils # 5.1 (1.6-8.9) K/mcL BMP 01/20/17 04:20 Sodium 138 Potassium 3.8 Chloride 105 Carbon Dioxide 27 BUN 32 H D Creatinine 1.12 H Glucose 138 H Calcium 8.8 Liver Function 01/20/17 Range/Units 04:20 Total Bilirubin 0.8 (0.2-1.2) mg/dL Direct Bilirubin 0.5 (0.0-0.5) mg/dL AST 23 (5-34) Units/L ALT 44 (0-55) Units/L Alkaline Phosphatase 134 H (38-126) Units/L Albumin 2.2 L (3.5-5.0) g/dL - ABG Interpretation ABG results: PT/INR, D-dimer PT 16.8 Seconds (9.4-12.1) H 01/14/17 14:28 Consult Discharge Plan - Plan Referrals: NO,PCP [Non-Partnered Physician] -
[2017-01-20] MEDS ORDERED: Water for inj. (sterile) 10 ML IV ONE (10:17)
[2017-01-20] MEDS: *HR* LORazepam 2 MG/ML VIAL IVP PRN ×2 (10:19→21:06)
[2017-01-20] MEDS: Acetaminophen 325 MG TABLET PO PRN ×2 (14:41→22:19)
[2017-01-21] MEDS ORDERED: *HR* LORazepam 2 MG/ML VIAL IVP STA (00:34)
[2017-01-21] MEDS ORDERED: Valproic Acid INJ 500 MG in 0.9 % Sodium Chloride 100 ML IVPB ONE (00:35)
[2017-01-21 03:56] LABS: Basophils # 0.1 K/mcL (0.0-0.2); Basophils % 0.4 %; Eosinophils # 0.1 K/mcL (0.0-0.6); Eosinophils % 0.5 %; Hematocrit 35.6 % (35.3-44.9); Hemoglobin 11.5 g/dL (11.5-15.4); Immature Granulocytes % 3.3 % (0-4); Lymphocytes # 0.8 K/mcL (0.6-4.6); Lymphocytes % 5.8 %; Mean Corpuscular HGB Conc 32.3 g/dL (31.6-35.5); Mean Corpuscular Hemoglobin 27.3 pg (28.0-33.3); Mean Corpuscular Volume 84.4 fL (83.0-100.0); Mean Platelet Volume 9.4 fL (9.4-12.4); Monocytes # 0.8 K/mcL (0.0-1.3); Monocytes % 5.6 %; Neutrophils # 11.8 K/mcL (1.6-8.9); Platelet Count 210 K/mcL (140-400); Red Blood Count 4.22 M/mcL (3.82-4.97); Red Cell Distribution Width 17.3 % (11.5-14.5); Segmented Neutrophils % 84.4 %
[2017-01-21 04:03] LABS: Calcium 8.7 mg/dL (8.6-10.8); Magnesium 1.9 mg/dL (1.6-2.6); Potassium 4.4 mEq/L (3.5-4.5)
[2017-01-21] MEDS: *HR* Heparin 5,000 UNIT/ML VIAL SQ SCH ×2 (05:37→20:52)
[2017-01-21] MEDS: Isosorbide MONOnitrate (24 HR) 30 MG TAB.ER.24H PO SCH (10:58)
[2017-01-21] MEDS: Diltiazem CD (24hr) 180 MG CAPSULE PO SCH (10:58)
[2017-01-21] MEDS: levETIRAcetam 250 MG TABLET PO SCH ×2 (10:59→20:52)
[2017-01-21] MEDS: Insulin LISPRO 300 UNITS/3 ML VIAL SQ SCH ×5 (10:59→21:39)
[2017-01-21] MEDS: Ranolazine 500 MG TAB.ER.12H PO SCH ×2 (10:59→20:50)
--- NOTE | 2017-01-21 16:43 | Internal Med Progress Note ---
Date of Encounter: 01/21/17 Time of Encounter: 16:00 - Assessment and plan (1) Acute metabolic encephalopathy Current Visit: Yes Status: Acute Assessment and plan: Multifactorial secondary to long hospital stay, elderly, off home dose seroquel. r/o infection. 01/20 night: patient became very confused and agitated overnight. she received IV ativan and Iv valproic acid. CT head was negative for any acute process. There is global parenchymal volume loss. chronic microvascular ischemic changes. her kidney function is at baseline. A few hours later, her nurse told me that Mrs Cox was awake and answering all questions. I went again and examined patient, she was alert, oriented x3 and answering all my question and following commands, moving her extremities. She told me that her son needs to speak closer to her left ear so she can hear him. she has no complaints. WBC trending up. check UA. resume home dose of seroquel at bedtime. check LFT in AM. close monitor (2) Dilatation of colon Current Visit: Yes Status: Acute Assessment and plan: 01/15: CT of the abdomen and pelvis shows colonic distention with transition point in the pelvis representing atelectasis artery small bowel obstruction. 01/17: KUB showed unchanged colonic dilation. off TPN since 01/17. 01/21: KUB shows moderate fecal material in the ascending colon. there is interval improved distention of the small and large bowel, resolving partial SBO. clinically the patient is improving slowly. resume senna to clear fecal material in the ascending colon. continue soft diet. (3) Partial small bowel obstruction Current Visit: Yes Status: Acute Assessment and plan: Plan as above. (4) Systolic heart failure, chronic Current Visit: Yes Status: Acute Assessment and plan: 01/03/17: echocardiogram LVEF 25-30%, severe MR, BivICD. 01/18: acute decompensation of systolic heart failure due to TPN. 01/21: slowly improving. continue bumex and coreg. holding ACEi due to GEORGES. fluid restriction. (5) Uncontrolled diabetes mellitus Current Visit: No Status: Chronic Assessment and plan: secondary to TPN. Off TPN since 01/17. 01/20: fasting glucose was 98. levemir 7 units hs stopped. fasting glucose is 212. given poor oral intake due to encephalopathy I will only continue sliding scale insulin. Diabetic diet. Qualifiers: Diabetes mellitus type: type 2 Diabetes mellitus complication status: with hyperglycemia Diabetes mellitus chcf insulin use: with chcf use Qualified Code(s): E11.65 - Type 2 diabetes mellitus with hyperglycemia; Z79.4 - care home (current) use of insulin (6) CKD (chronic kidney disease), stage IV Current Visit: No Status: Chronic Assessment and plan: Creatinine is at her baseline. Avoid nephrotoxins. Monitor BUN and creatinine. (7) Severe mitral regurgitation Current Visit: No Status: Chronic - Subjective Interval history: Patient became very agitated and received IV ativan and IV Valproic acid. She is sleeping this morning. All vital signs are okay. - Constitutional Vitals: Temp Pulse Resp BP Pulse Ox 97.7 F 79 18 124/79 98 01/21/17 15:00 01/21/17 15:00 01/21/17 15:00 01/21/17 15:00 01/21/17 15:00 General appearance: Present: cooperative, A&O X 3, pleasant, no acute distress, answers questions appropriately - Respiratory Respiratory exam: Present: decreased breath sounds (at lung bases) - Cardiovascular Cardiovascular exam: Present: RRR, systolic murmur - GI/Abdominal GI/Abdominal exam: Present: normal bowel sounds, soft. Absent: distended, tenderness - Extremities Exam Extremities exam: Present: pedal edema (1+ Le edema) - Back Exam Back exam: Absent: CVA tenderness (L), CVA tenderness (R) - Neurological Exam Additional comments: sleeping. - Skin Skin exam: Absent: rash Internal Medicine: Result - Labs CBC & Chem 7: 01/21/17 03:35 01/21/17 03:35 Labs: Short CBC 01/21/17 Range/Units 03:35 WBC 14.0 H D (4.3-11.1) K/mcL Hgb 11.5 (11.5-15.4) g/dL Hct 35.6 (35.3-44.9) % Plt Count 210 (140-400) K/mcL Neutrophils # 11.8 H (1.6-8.9) K/mcL BMP 01/21/17 03:35 Sodium 136 Potassium 4.4 Chloride 103 Carbon Dioxide 24 BUN 28 H Creatinine 1.28 H Glucose 236 H Calcium 8.7 - ABG Interpretation ABG results: PT/INR, D-dimer PT 16.8 Seconds (9.4-12.1) H 01/14/17 14:28 - Impressions Impressions KUB X-Ray 01/21/17 06:00 IMPRESSION: Moderate fecal material in the ascending colon. Interval improved distention of the small and large bowel, likely related to resolving partial small bowel obstruction. D/ / Mikhail Villa MD / Mikhail Villa MD Interpreting Provider: Mikhail Villa MD Head CT 01/21/17 09:19 IMPRESSION: No acute intracranial abnormality. Stable exam. D/ / Jeffry Guadalupe MD / Jeffry Guadalupe MD Interpreting Provider: Jeffry Guadalupe MD - VTE Documentation of Mechanical Device: Graduated compression elastic hosiery Consult Discharge Plan - Plan Referrals: NO,PCP [Non-Partnered Physician] -
[2017-01-21 20:09] LABS: Bilirubin,Urine Small (Negative); Blood,Urine Large (Negative); Clarity,Urine Turbid (Clear); Color,Urine Dark Yellow (Yellow); Glucose,Urine (UA) Normal (Normal); Ketones,Urine Trace mg/dL (Negative); Leukocyte Esterase,Urine Large (Negative); Nitrite,Urine Negative (Negative); PH,Urine 5.5 pH Units (5.0-8.0); Protein,Urine 30 mg/dL (Neg-Trace); Specific Gravity,Urine 1.021 (1.010-1.025); Urobilinogen,Urine Normal (Normal)
[2017-01-21 20:11] LABS: Bacteria,Urine None Seen per hpf (None-Few); Squamous Epithelial Cell,Urine Many per lpf (None-Few); WBC,Urine TNTC per hpf (0-3)
[2017-01-21 20:23] LABS: Yeast,Urine Many per hpf (None Seen)
[2017-01-21 20:24] LABS: Hyaline Casts,Urine None Seen per lpf (None-Few)
[2017-01-21] MEDS: Nitroglycerin 0.4 MG TAB.SUBL SL SCH (20:50)
[2017-01-21] MEDS ORDERED: Valproic Acid 250 MG CAPSULE PO SCH (21:00)
[2017-01-22 04:35] LABS: Albumin 2.2 g/dL (3.5-5.0); Albumin/Globulin Ratio 0.8 (1.1-2.2); Bilirubin,Direct 0.5 mg/dL (0.0-0.5); Bilirubin,Indirect 0.3 mg/dL (0.0-1.2); Bilirubin,Total 0.8 mg/dL (0.2-1.2); Globulin 2.9 g/dL (2.4-3.5); Total Protein 5.1 g/dL (6.0-8.3)
[2017-01-22] MEDS: *HR* Heparin 5,000 UNIT/ML VIAL SQ SCH ×2 (05:27→17:26)
[2017-01-22] MEDS: Ranolazine 500 MG TAB.ER.12H PO SCH ×2 (07:43→21:32)
[2017-01-22] MEDS: Diltiazem CD (24hr) 180 MG CAPSULE PO SCH (07:43)
[2017-01-22] MEDS: levETIRAcetam 250 MG TABLET PO SCH ×2 (07:44→21:33)
[2017-01-22] MEDS: Isosorbide MONOnitrate (24 HR) 30 MG TAB.ER.24H PO SCH (07:44)
[2017-01-22] MEDS: Insulin LISPRO 300 UNITS/3 ML VIAL SQ SCH ×4 (07:59→21:31)
[2017-01-22 08:06] LABS: Basophils % 0.3 %; Eosinophils % 0.6 %; Hemoglobin 9.6 g/dL (11.5-15.4); Immature Granulocytes % 1.9 % (0-4); Immature Platelets 1.7 % (1.1-6.1); Lymphocytes # 0.7 K/mcL (0.6-4.6); Lymphocytes % 10.5 %; Mean Corpuscular Hemoglobin 26.2 pg (28.0-33.3); Mean Corpuscular Volume 84.7 fL (83.0-100.0); Mean Platelet Volume 9.1 fL (9.4-12.4); Monocytes # 0.6 K/mcL (0.0-1.3); Monocytes % 9.2 %; Neutrophils # 4.8 K/mcL (1.6-8.9); Platelet Count 189 K/mcL (140-400); Red Blood Count 3.66 M/mcL (3.82-4.97); Red Cell Distribution Width 17.5 % (11.5-14.5); Segmented Neutrophils % 77.5 %
[2017-01-22 08:19] LABS: Calcium 8.5 mg/dL (8.6-10.8); Magnesium 1.8 mg/dL (1.6-2.6); Potassium 4.5 mEq/L (3.5-4.5)
[2017-01-22] MEDS: Nitroglycerin 0.4 MG TAB.SUBL SL SCH ×2 (10:53→21:33)
--- NOTE | 2017-01-22 15:59 | Internal Med Progress Note ---
Date of Encounter: 01/22/17 Time of Encounter: 12:00 - Assessment and plan (1) Acute metabolic encephalopathy Current Visit: Yes Status: Acute Assessment and plan: Improved. Multifactorial secondary to long hospital stay, elderly, off home dose seroquel. r/o infection. 01/20 night: patient became very confused and agitated overnight. she received IV ativan and Iv valproic acid. CT head was negative for any acute process. There is global parenchymal volume loss. chronic microvascular ischemic changes. her kidney function is at baseline. Unremarkable LFT. A few hours later, her nurse told me that Mrs Cox was awake and answering all questions. I went again and examined patient, she was alert, oriented x3 and answering all my question and following commands, moving her extremities. She told me that her son needs to speak closer to her left ear so she can hear him. she has no complaints. Improved. WBC back to normal. UA showed signs of infection. start Ceftriaxone. pending urine culture result. continue home dose of seroquel at bedtime. (2) Dilatation of colon Current Visit: Yes Status: Acute Assessment and plan: 01/15: CT of the abdomen and pelvis shows colonic distention with transition point in the pelvis representing atelectasis artery small bowel obstruction. 01/17: KUB showed unchanged colonic dilation. off TPN since 01/17. 01/21: KUB shows moderate fecal material in the ascending colon. there is interval improved distention of the small and large bowel, resolving partial SBO. resolved. continue soft diet and laxatives prn. avoid constipation. (3) Partial small bowel obstruction Current Visit: Yes Status: Acute Assessment and plan: Plan as above. (4) Systolic heart failure, chronic Current Visit: Yes Status: Acute Assessment and plan: 01/03/17: echocardiogram LVEF 25-30%, severe MR, BivICD. 01/18: acute decompensation of systolic heart failure due to TPN. 01/22: Continue coreg. holding bumex and ACEi due to GEORGES. fluid restriction. (5) Uncontrolled diabetes mellitus Current Visit: No Status: Chronic Assessment and plan: secondary to TPN. Off TPN since 01/17. 01/20: fasting glucose was 98. levemir 7 units hs stopped. fasting glucose is 204. continue sliding scale and diabetic diet. resume levemir 5 units hs. 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 repeat BMP in the afternoon. Avoid nephrotoxins agents. close monitoring. (7) Severe mitral regurgitation Current Visit: No Status: Chronic - Subjective Interval history: Patient is AOx3. She is eating on the chair and has no complaints. - Constitutional Vitals: Temp Pulse Resp BP Pulse Ox 96.4 F L 66 17 133/67 98 01/22/17 15:15 01/22/17 15:15 01/22/17 15:15 01/22/17 15:15 01/22/17 15:15 General appearance: Present: cooperative, A&O X 3, pleasant, no acute distress, answers questions appropriately - Respiratory Respiratory exam: Present: CTAB - Cardiovascular Cardiovascular exam: Present: RRR - GI/Abdominal GI/Abdominal exam: Present: normal bowel sounds, soft. Absent: distended, tenderness - Extremities Exam Extremities exam: Absent: pedal edema - Back Exam Back exam: Absent: CVA tenderness (L), CVA tenderness (R) - Neurological Exam Neurological exam: Present: alert, oriented X3, facial droop, speech deficit. Absent: no focal deficits, strengths equal and symetr throughout - Skin Skin exam: Absent: rash Internal Medicine: Result - Labs CBC & Chem 7: 01/22/17 07:57 01/22/17 07:57 Labs: Short CBC 01/22/17 Range/Units 07:57 WBC 6.2 D (4.3-11.1) K/mcL Hgb 9.6 L D (11.5-15.4) g/dL Hct 31.0 L (35.3-44.9) % Plt Count 189 (140-400) K/mcL Neutrophils # 4.8 (1.6-8.9) K/mcL BMP 01/22/17 07:57 Sodium 138 Potassium 4.5 Chloride 105 Carbon Dioxide 23 BUN 34 H Creatinine 1.45 H Glucose 208 H Calcium 8.5 L Liver Function 01/22/17 Range/Units 04:00 Total Bilirubin 0.8 (0.2-1.2) mg/dL Direct Bilirubin 0.5 (0.0-0.5) mg/dL AST 23 (5-34) Units/L ALT 35 (0-55) Units/L Alkaline Phosphatase 136 H (38-126) Units/L Albumin 2.2 L (3.5-5.0) g/dL Urine 01/21/17 Range/Units 19:50 Urine Color Dark Yellow (Yellow) Urine Clarity Turbid A (Clear) Urine pH 5.5 (5.0-8.0) pH Units Ur Specific Pitcher 1.021 (1.010-1.025) Urine Protein 30 H (Neg-Trace) mg/dL Urine Glucose (UA) Normal (Normal) mg/dL - ABG Interpretation ABG results: PT/INR, D-dimer PT 16.8 Seconds (9.4-12.1) H 01/14/17 14:28 - Impressions Impressions KUB X-Ray 01/17/17 06:00 IMPRESSION: No significant change in bilateral pleural effusions and bibasilar atelectasis. Dilated small bowel and gaseous distention of the colon are similar to prior. Findings are consistent with ongoing partial small bowel obstruction. D/ / 01/17/2017 13:23:26 Janeth Blanco MD / man Interpreting Provider: Janeth Blanco MD Chest X-Ray 01/17/17 12:24 IMPRESSION: No significant change in bilateral pleural effusions and bibasilar atelectasis. Dilated small bowel and gaseous distention of the colon are similar to prior. Findings are consistent with ongoing partial small bowel obstruction. D/ / 01/17/2017 13:23:26 Janeth Blanco MD / man Interpreting Provider: Janeth Blanco MD - VTE Documentation of Mechanical Device: Graduated compression elastic hosiery Consult Discharge Plan - Plan Referrals: NO,PCP [Non-Partnered Physician] -
[2017-01-22] MEDS ORDERED: Sennosides/Docusate Sodium TABLET PO ONE (16:03)
[2017-01-22] MEDS: Docusate Oral Soln 100 MG/10 ML UDC PO SCH ×2 (17:08→21:34)
[2017-01-22] MEDS ORDERED: Insulin DETEMIR 100 UNIT/ML X5UNITS SQ SCH (21:00)
[2017-01-22] MEDS: Acetaminophen 325 MG TABLET PO PRN (23:03)
[2017-01-22 23:14] LABS: Calcium 8.5 mg/dL (8.6-10.8); Potassium 3.9 mEq/L (3.5-4.5)
[2017-01-23 03:39] LABS: Basophils % 0.4 %; Eosinophils # 0.1 K/mcL (0.0-0.6); Eosinophils % 1.5 %; Immature Granulocytes % 1.8 % (0-4); Immature Platelets 2.2 % (1.1-6.1); Lymphocytes # 0.6 K/mcL (0.6-4.6); Lymphocytes % 10.7 %; Mean Corpuscular HGB Conc 31.6 g/dL (31.6-35.5); Mean Corpuscular Hemoglobin 26.5 pg (28.0-33.3); Mean Corpuscular Volume 83.8 fL (83.0-100.0); Mean Platelet Volume 9.2 fL (9.4-12.4); Monocytes # 0.5 K/mcL (0.0-1.3); Monocytes % 9.8 %; Neutrophils # 4.1 K/mcL (1.6-8.9); Platelet Count 194 K/mcL (140-400); Red Cell Distribution Width 17.5 % (11.5-14.5); Segmented Neutrophils % 75.8 %
[2017-01-23 03:43] LABS: Hemoglobin 9.8 g/dL (11.5-15.4)
[2017-01-23 03:52] LABS: Calcium 8.4 mg/dL (8.6-10.8)
[2017-01-23 04:11] LABS: Potassium 4.7 mEq/L (3.5-4.5)
[2017-01-23] MEDS: *HR* Heparin 5,000 UNIT/ML VIAL SQ SCH ×2 (05:50→17:50)
[2017-01-23] MEDS: Acetaminophen 325 MG TABLET PO PRN (06:31)
[2017-01-23] MEDS ORDERED: MOM Conc 10 ML UD.LIQ PO ONE (07:53)
[2017-01-23] MEDS: Insulin LISPRO 300 UNITS/3 ML VIAL SQ SCH ×4 (08:39→17:59)
[2017-01-23] MEDS: Diltiazem CD (24hr) 180 MG CAPSULE PO SCH (08:40)
[2017-01-23] MEDS: Docusate Oral Soln 100 MG/10 ML UDC PO SCH (08:40)
[2017-01-23] MEDS: levETIRAcetam 250 MG TABLET PO SCH (08:41)
[2017-01-23] MEDS: Ranolazine 500 MG TAB.ER.12H PO SCH (08:41)
--- NOTE | 2017-01-23 08:56 | Discharge Summary ---
Date of Encounter: 01/23/17 Time of Encounter: 08:53 - Discharge Diagnosis (1) Dilatation of colon Priority: Primary Status: Acute (2) Partial small bowel obstruction Priority: Primary Status: Acute (3) Acute metabolic encephalopathy Priority: Primary Status: Resolved (4) Systolic heart failure, chronic Priority: Primary Status: Acute (5) Uncontrolled diabetes mellitus Priority: Secondary Status: Chronic Qualifiers: Diabetes mellitus type: type 2 Diabetes mellitus complication status: with hyperglycemia Diabetes mellitus correction insulin use: with weed controller use Qualified Code(s): E11.65 - Type 2 diabetes mellitus with hyperglycemia; Z79.4 - 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 operator helper (current) use of insulin (6) CKD (chronic kidney disease), stage IV Priority: Secondary Status: Chronic (7) Severe mitral regurgitation Priority: Secondary Status: Chronic - Discharge Medications Prescriptions: Magnesium Hydroxide [Milk of Magnesia] 800 mg PO DAILY #30 mls Home Medications: Calcitriol [Rocaltrol] 0.25 mcg PO DAILY 01/03/17 [History] Carvedilol [Coreg] 25 mg PO BID 01/03/17 [History] Clopidogrel [Plavix] 75 mg PO DAILY 01/03/17 [History] Insulin ASPART [Novolog] 1 unit SQ QID 01/03/17 [History] Isosorbide MONOnitrate [Isosorbide Mononitrate] 30 mg PO DAILY 01/03/17 [History ] Levothyroxine [Synthroid] 125 mcg PO DAILY 01/03/17 [History] Nitroglycerin [Nitrostat] 0.4 mg SL PRN PRN 01/03/17 [History] Ranolazine [Ranexa] 1,000 mg PO BID 01/03/17 [History] Rivaroxaban [Xarelto] 15 mg PO DAILY 01/03/17 [History] Rosuvastatin [Crestor] 20 mg PO DAILY 01/03/17 [History] Diltiazem CD (24hr) [Cardizem CD] 180 mg PO DAILY #30 cap.er.24h 01/11/17 [Rx] LevETIRAcetam [Keppra] 250 mg PO BID #60 tablet 01/11/17 [Rx] Quetiapine Fumarate [Seroquel] 12.5 mg PO HS #15 tablet 01/11/17 [Rx] Sennosides/Docusate Sodium [Senna Plus] 2 each PO BID #0 tablet 01/11/17 [Rx] Bumetanide [Bumex] 0.5 mg PO BIDDIURETIC tablet 01/23/17 [Rx] Glimepiride [Amaryl] 1 mg PO 0800 #0 01/23/17 [Rx] Insulin DETEMIR [Levemir] 5 unit SQ BID [id number] 01/23/17 [Rx] Magnesium Hydroxide [Milk of Magnesia] 800 mg PO DAILY #30 mls 01/23/17 [Rx] Potassium Chloride [Klor-Con] 10 meq PO BID #0 01/23/17 [Rx] Allergies/Adverse Reactions: Allergies pioglitazone [From [employer]] Allergy (Verified 01/03/17 08:16) Cough Procedures/tests Complete & Pending: Procedures Performed prior 72 hours Category Date Time Status CT head/brain wo con [CT] Stat Cat Scan 01/21/17 09:19 Completed Date of admission: 01/12/17 13:35 Primary care physician: Gianna Rendon CNP Consults: 01/13/17 14:39 Consult to Surgery [CONS] Routine Consulting Provider: Hailey Ronquillo Reason for Consult: severe constipation, possible bowel obstruction Time Notified: 14:39 Call Completed: Yes 01/14/17 07:30 Consult to Gastroenterology [CONS] Routine Consulting Provider: Gastroenterology Palmer Reason for Consult: [place] - neostigmine Call Completed: No 01/14/17 11:47 Consult to Physical Therapy [CONS] Routine Comment: Evaluate, develop and implement POC 01/14/17 11:49 Consult to Occupational Therapy [CONS] Routine Comment: Evaluate, develop and implement POC 01/15/17 12:02 Consult to Nutrition [CONS] Routine Comment: Consulting Provider: NUTRITION Reason for Dietary Consult: TPN Start and Manage 01/15/17 14:16 PICC Consult [Consult to Invasive Line Access Team] [CONS] Stat Reason for Consult: TPN Line Type: PICC PICC line indications: Parental nutrition 01/15/17 14:42 Consult to Bleacher Lard [CONS] Routine Reason for SW Consult: was at [facility] 01/15/17 15:27 Consult to Invasive Line Access Team [CONS] Routine Reason for Consult: Picc Line Insertion Line Type: PICC PICC line indications: Highly osmotic fluid/med - Patient Status Disposition: Transfer Inpatient Rehab Fac Condition: Good Functional capacity at discharge: uses cane/walker Overall status at discharge: patient is progressing back to baseline - Discharge Instructions Follow Up With: NO,PCP [Non-Partnered Physician] - (f/u with your cardiology doctor in 1-2 weeks) - Diet and Activity Activity: as per physical therapy, resume usual activities as tolerated Diet: diabetic diet, low fat, low cholesterol Interval History: Patient reports cramps and pain in legs overnight. She ate 40% of her breakfast. Hospital course: Ms. Cox is a 76 year old female with past medical history of systolic heart failure LVEF 25%, severe MR, atrial fibrillation on anticoagulation with Xarelto, diabetes mellitus, hypertension, CAD status post CABG with AICD, hypothyroidism, chronic kidney disease stage III, and multiple prior CVAs. First days of December 2016: patient admitted to [facility] and treated for sHF exacerbation, she was switched to Bumex. 01/03 to 01/11: Patient admitted here and treated for acute kidney injury, acute CHF exacerbation, and new onset seizures. echocardiogram LVEF 25-30%, severe MR, BivICD. Patient presented with a chief complaint of abdominal pain. 01/15: CT of the abdomen and pelvis shows colonic distention with transition point in the pelvis representing atelectasis artery small bowel obstruction. She was started on laxatives with clinical improvement. 01/21: KUB shows moderate fecal material in the ascending colon, there is interval improved distention of the small and large bowel, resolving partial SBO. She was tolerating her diet well and having good bowel movements. She was also diagnosed with acute systolic heart failure on her Bumex dose was adjusted. Her insulin requirement when adjusted for her glucose levels. PLAN: repeat BMP on 01/25/17. Avoid constipation. follow up in the cardiology clinic in 1-2 weeks. discharge to rehab. - Time Spent with Patient Total time spent providing and/or coordinating discharge services: - Constitutional Vitals: Temp Pulse Resp BP Pulse Ox 97.5 F L 84 16 120/76 97 01/23/17 07:51 01/23/17 07:51 01/23/17 07:51 01/23/17 07:51 01/23/17 07:51 General appearance: Present: cooperative, A&O X 3, pleasant, no acute distress, answers questions appropriately - Respiratory Respiratory exam: Present: CTAB - Cardiovascular Cardiovascular exam: Present: RRR - GI/Abdominal GI/Abdominal exam: Present: normal bowel sounds, soft. Absent: distended, tenderness - Extremities Exam Extremities exam: Present: pedal edema (2+ LE edema) - Back Exam Back exam: Absent: CVA tenderness (L), CVA tenderness (R) - Neurological Exam Neurological exam: Present: alert, oriented X3, no focal deficits, strengths equal and symetr throughout. Absent: facial droop, speech deficit - Skin Skin exam: Absent: rash - VTE Documentation of Mechanical Device: Graduated compression elastic hosiery
[2017-01-23] MEDS ORDERED: Insulin DETEMIR 100 UNIT/ML X5UNITS SQ SCH (09:00)
--- NOTE | 2017-01-23 09:29 | Physician Discharge Referral ---
ExtendedCare Referral Info Transfer To: ECF Provider in Charge: kasandra Provider in Charge after Transfer: PCP Institutional Level of Care: Skilled - Diagnosis (1) Dilatation of colon Status: Acute (2) Partial small bowel obstruction Status: Acute (3) Acute metabolic encephalopathy Status: Resolved (4) Systolic heart failure, chronic Status: Acute (5) Uncontrolled diabetes mellitus Status: Chronic (6) CKD (chronic kidney disease), stage IV Status: Chronic (7) Severe mitral regurgitation Status: Chronic - Transfer Medications Prescriptions: Magnesium Hydroxide [Milk of Magnesia] 800 mg PO DAILY #30 mls Home Medications: Calcitriol [Rocaltrol] 0.25 mcg PO DAILY 01/03/17 [History] Carvedilol [Coreg] 25 mg PO BID 01/03/17 [History] Clopidogrel [Plavix] 75 mg PO DAILY 01/03/17 [History] Insulin ASPART [Novolog] 1 unit SQ QID 01/03/17 [History] Isosorbide MONOnitrate [Isosorbide Mononitrate] 30 mg PO DAILY 01/03/17 [History ] Levothyroxine [Synthroid] 125 mcg PO DAILY 01/03/17 [History] Nitroglycerin [Nitrostat] 0.4 mg SL PRN PRN 01/03/17 [History] Ranolazine [Ranexa] 1,000 mg PO BID 01/03/17 [History] Rivaroxaban [Xarelto] 15 mg PO DAILY 01/03/17 [History] Rosuvastatin [Crestor] 20 mg PO DAILY 01/03/17 [History] Diltiazem CD (24hr) [Cardizem CD] 180 mg PO DAILY #30 cap.er.24h 01/11/17 [Rx] LevETIRAcetam [Keppra] 250 mg PO BID #60 tablet 01/11/17 [Rx] Quetiapine Fumarate [Seroquel] 12.5 mg PO HS #15 tablet 01/11/17 [Rx] Sennosides/Docusate Sodium [Senna Plus] 2 each PO BID #0 tablet 01/11/17 [Rx] Bumetanide [Bumex] 0.5 mg PO BIDDIURETIC tablet 01/23/17 [Rx] Glimepiride [Amaryl] 1 mg PO 0800 #0 01/23/17 [Rx] Insulin DETEMIR [Levemir] 5 unit SQ BID [id number] 01/23/17 [Rx] Magnesium Hydroxide [Milk of Magnesia] 800 mg PO DAILY #30 mls 01/23/17 [Rx] Potassium Chloride [Klor-Con] 10 meq PO BID #0 01/23/17 [Rx] Allergies/Adverse Reactions: Allergies pioglitazone [From [employer]] Allergy (Verified 01/03/17 08:16) Cough - Respiratory Orders Smoking Cessation: Smoking cessation has been advised. For more information, call the [place] Tobacco Quit Line at 8-635-VTDD-NOW. - Lab Orders Lab Orders: Other (include drug levels w/frequency) (BMP anad Magnesium on .) - Advance Directives Code Status: DNR-Arrest/Don't Intubate - Mobility Orders Ambulate - Rehabiliation Orders Rehab Potential: Fair Rehab Orders: Evaluation for Physical Therapy, Evaluation for Occupational Therapy - Diet Orders No Added Salt (BURT), No Concentrated Sweets, Renal, Cardiac CERTIFICATION: I certify that the transfer of the above named patient to an Extended Care Facility is necessary for the continuing treatment of the diagnosis listed. The above information is true and accurate reflection of patient's current condition. Confidential - Redisclosure prohibited without a patient's written consent.
[2017-01-23] MEDS: Isosorbide MONOnitrate (24 HR) 30 MG TAB.ER.24H PO SCH (09:47)
[2017-01-23] MEDS: Bumetanide 1 MG TABLET PO SCH ×2 (09:47→17:50)
[2017-01-23] MEDS: Nitroglycerin 0.4 MG TAB.SUBL SL SCH (12:10)
[2017-01-23 20:15] VITALS: BP 127/76
== END 2017-01-23 20:51 | DRG 388 ==
LOC: 3ANU → SUATTDRO 13:35
PROVIDERS: ADMIT Internal Medicine; ATTEND Internal Medicine

== ENCOUNTER 2020-06-16 14:23 | Inpatient (IN) ==
[2020-06-16] MEDS ORDERED: 0.9 % Sodium Chloride 1,000 ML IVC ONE (14:43)
[2020-06-16] MEDS ORDERED: Isovue-370 500 ML BOTTLE IVP ONE (14:44)
[2020-06-16 15:04] LABS: Basophils % 0.4 %; Eosinophils # 0.1 K/mcL (0.0-0.6); Eosinophils % 1.5 %; Hematocrit 28.4 % (35.3-44.9); Immature Granulocytes % 0.4 % (0-4); Lymphocytes # 0.4 K/mcL (0.6-4.6); Lymphocytes % 8.2 %; Mean Corpuscular HGB Conc 31.7 g/dL (31.6-35.5); Mean Corpuscular Hemoglobin 26.2 pg (28.0-33.3); Mean Corpuscular Volume 82.6 fL (83.0-100.0); Mean Platelet Volume 8.4 fL (9.4-12.4); Monocytes # 0.4 K/mcL (0.0-1.3); Monocytes % 7.7 %; Neutrophils # 4.4 K/mcL (1.6-8.9); Platelet Count 135 K/mcL (140-400); Red Blood Count 3.44 M/mcL (3.82-4.97); Segmented Neutrophils % 81.8 %; White Blood Count 5.3 K/mcL (4.3-11.1)
[2020-06-16 15:32] LABS: INR 1.5; Prothrombin Time 17.5 Seconds (9.4-12.1)
[2020-06-16 15:34] LABS: Activated Partial Thrombo Time 38.1 Seconds (26.0-36.0)
[2020-06-16 15:45] LABS: Albumin 3.7 g/dL (3.5-5.7); Albumin/Globulin Ratio 1.5 (1.1-2.2); Bilirubin,Total 0.6 mg/dL (0.3-1.0); Calcium 7.6 mg/dL (8.6-10.3); Globulin 2.4 g/dL (2.4-3.5); Potassium 3.7 mEq/L (3.5-5.1); Total Protein 6.1 g/dL (6.4-8.9); Troponin I 0.03 ng/mL (< 0.04)
[2020-06-16] MEDS: Nystatin POWDER 30 GM BOTTLE TP SCH ×2 (15:53→21:48)
[2020-06-16 19:45] LABS: Bilirubin,Urine Negative (Negative); Blood,Urine Moderate (Negative); Clarity,Urine Clear (Clear); Color,Urine Colorless (Yellow); Glucose,Urine (UA) Normal (Normal); Hyaline Casts,Urine Few per lpf (None Seen); Ketones,Urine Negative (Negative); Leukocyte Esterase,Urine Moderate (Negative); Mucus,Urine Few per lpf (None-Few); Nitrite,Urine Positive (Negative); PH,Urine 6.5 pH Units (5.0-8.0); Protein,Urine Negative (Neg-Trace); RBC,Urine 0-3 per hpf (0-3); Specific Gravity,Urine 1.008 (1.010-1.025); Squamous Epithelial Cell,Urine Few per hpf (None-Few); Urobilinogen,Urine Normal (Normal)
[2020-06-16] MEDS ORDERED: 0.9 % Sodium Chloride 1,000 ML IVC SCH (21:30)
[2020-06-16] MEDS: cefTRIAXone 1,000 MG in Water for inj. (sterile) 10 ML IVP SCH (21:48)
[2020-06-16] MEDS ORDERED: D5% in Water 1,000 ML IVC PRN (22:09)
[2020-06-16] MEDS ORDERED: Dextrose Gel 15 GM/37.5 ML TUBE PO PRN ×2 (22:09)
[2020-06-16] MEDS ORDERED: *HR* Dextrose 50 % in Water (Vial) 50 ML VIAL IVP PRN (22:09)
[2020-06-16 23:01] LABS: Hematocrit 25.8 % (35.3-44.9); Hemoglobin 8.5 g/dL (11.5-15.4); Mean Corpuscular HGB Conc 32.9 g/dL (31.6-35.5); Mean Corpuscular Hemoglobin 26.5 pg (28.0-33.3); Mean Corpuscular Volume 80.4 fL (83.0-100.0); Mean Platelet Volume 8.9 fL (9.4-12.4); Platelet Count 128 K/mcL (140-400); Red Blood Count 3.21 M/mcL (3.82-4.97); White Blood Count 5.2 K/mcL (4.3-11.1)
[2020-06-17] MEDS ORDERED: *HR* LORazepam 2 MG/ML VIAL IVP ONE (00:54)
[2020-06-17] MEDS: Ondansetron 4 MG/2 ML VIAL IVP PRN ×2 (03:31→22:00)
[2020-06-17] MEDS: Insulin LISPRO 300 UNITS/3 ML VIAL SQ SCH ×3 (05:01→16:58)
[2020-06-17 05:29] LABS: Basophils % 0.3 %; Eosinophils % 0.6 %; Hematocrit 29.1 % (35.3-44.9); Immature Granulocytes % 0.4 % (0-4); Lymphocytes # 0.4 K/mcL (0.6-4.6); Lymphocytes % 6.2 %; Mean Corpuscular HGB Conc 30.9 g/dL (31.6-35.5); Mean Corpuscular Hemoglobin 26.1 pg (28.0-33.3); Mean Corpuscular Volume 84.3 fL (83.0-100.0); Mean Platelet Volume 8.6 fL (9.4-12.4); Monocytes # 0.4 K/mcL (0.0-1.3); Monocytes % 5.8 %; Neutrophils # 6.1 K/mcL (1.6-8.9); Platelet Count 156 K/mcL (140-400); Red Blood Count 3.45 M/mcL (3.82-4.97); Red Cell Distribution Width 16.1 % (11.5-14.5); Segmented Neutrophils % 86.7 %; White Blood Count 7.1 K/mcL (4.3-11.1)
[2020-06-17 05:52] LABS: Calcium 7.6 mg/dL (8.6-10.3); Potassium 3.4 mEq/L (3.5-5.1)
[2020-06-17] MEDS ORDERED: Insulin LISPRO 300 UNITS/3 ML VIAL SQ SCH (07:30)
[2020-06-17 08:29] LABS: Magnesium 1.8 mg/dL (1.6-2.6)
[2020-06-17 12:57] LABS: Adenovirus Not Detected (Not Detect); Bordetella Pertussis Not Detected (Not Detect); Chlamydophila pneumoniae Not Detected (Not Detect); Coronavirus 229E Not Detected (Not Detect); Coronavirus HKU1 Not Detected (Not Detect); Coronavirus NL63 Not Detected (Not Detect); Coronavirus OC43 Not Detected (Not Detect); Human Metapneumovirus Not Detected (Not Detect); Human Rhinovirus/Enterovirus Not Detected (Not Detect); Influenza A Subtype 2009 H1 Not Detected (Not Detect); Influenza B Not Detected (Not Detect); Mycoplasma pneumoniae Not Detected (Not Detect); Parainfluenza Virus 1 Not Detected (Not Detect); Parainfluenza Virus 2 Not Detected (Not Detect); Parainfluenza Virus 3 Not Detected (Not Detect); Parainfluenza Virus 4 Not Detected (Not Detect); Respiratory Syncytial Virus Not Detected (Not Detect); SARS-CoV-2 Not Detected (Not Detect)
[2020-06-17] MEDS ORDERED: *HR* FentaNYL (PF) 100 MCG/2 ML VIAL ONE (13:17)
[2020-06-17] MEDS ORDERED: *HR* Midazolam HCl 5 MG/5 ML VIAL IVP ONE (13:17)
[2020-06-17] MEDS ORDERED: Benzonatate 100 MG CAPSULE PO PRN (13:57)
[2020-06-17] MEDS: Nystatin POWDER 30 GM BOTTLE TP SCH ×2 (15:02→20:43)
[2020-06-17] MEDS: levETIRAcetam 250 MG in 0.9 % Sodium Chloride 100 ML IVPB SCH ×2 (15:06→20:44)
[2020-06-17] MEDS: Levothyroxine Sodium 100 MCG VIAL IVP SCH (15:15)
[2020-06-17] MEDS ORDERED: carvediloL 25 MG TABLET PO ONE (15:36)
[2020-06-17] MEDS ORDERED: Morphine Sulfate 2 MG/ML SYRINGE IVP ONE (15:38)
[2020-06-17] MEDS: carvediloL 25 MG TABLET PO SCH (16:11)
[2020-06-17] MEDS: Pantoprazole 40 MG VIAL IVP SCH (16:58)
[2020-06-17 17:54] LABS: Troponin I 6.19 ng/mL (< 0.04)
[2020-06-17] MEDS ORDERED: *HR* Heparin 5,000 UNIT/ML VIAL IVP PRN ×2 (17:58)
[2020-06-17] MEDS ORDERED: *HR* Heparin 5,000 UNIT/ML VIAL IVP ONE (17:58)
[2020-06-17] MEDS ORDERED: Heparin 25,000UNIT/250ML 1/2NS 25,000 UNIT/250 ML IV.SOLN IVC SCH (18:00)
[2020-06-17] MEDS ORDERED: Perflutren Lipid Microsphere 1.3 ML in 0.9 % Sodium Chloride 8.7 ML IVP PRN (18:07)
[2020-06-17 18:50] LABS: Heparin anti-factor XA UFH 0.75 IU/mL (0.30-0.70)
[2020-06-17 19:12] LABS: Activated Partial Thrombo Time 32.7 Seconds (26.0-36.0)
[2020-06-17 20:06] LABS: Albumin 3.8 g/dL (3.5-5.7)
[2020-06-17] MEDS: Sacubitril/Valsartan 24/26 MG 1 TABLET PO SCH (20:13)
[2020-06-17] MEDS: cefTRIAXone 1,000 MG in Water for inj. (sterile) 10 ML IVP SCH (20:13)
[2020-06-17] MEDS: Melatonin 3 MG TABLET PO SCH (20:13)
[2020-06-17] MEDS: Aspirin 81 MG TAB.CHEW PO SCH (20:15)
[2020-06-17] MEDS: Heparin 25,000UNIT/250ML 1/2NS 25,000 UNIT/250 ML IV.SOLN IVC SCH (20:24)
[2020-06-18] MEDS: Insulin LISPRO 300 UNITS/3 ML VIAL SQ SCH ×5 (00:30→22:09)
[2020-06-18] MEDS ORDERED: *HR* LORazepam 2 MG/ML VIAL IVP ONE (04:14)
[2020-06-18 04:54] LABS: Basophils % 0.3 %; Eosinophils % 0.2 %; Hematocrit 27.9 % (35.3-44.9); Hemoglobin 8.4 g/dL (11.5-15.4); Immature Granulocytes % 0.8 % (0-4); Lymphocytes # 0.6 K/mcL (0.6-4.6); Lymphocytes % 9.8 %; Mean Corpuscular HGB Conc 30.1 g/dL (31.6-35.5); Mean Corpuscular Hemoglobin 26.1 pg (28.0-33.3); Mean Corpuscular Volume 86.6 fL (83.0-100.0); Mean Platelet Volume 9.3 fL (9.4-12.4); Monocytes # 0.4 K/mcL (0.0-1.3); Neutrophils # 4.9 K/mcL (1.6-8.9); Platelet Count 145 K/mcL (140-400); Red Blood Count 3.22 M/mcL (3.82-4.97); Red Cell Distribution Width 16.2 % (11.5-14.5); Segmented Neutrophils % 81.9 %
[2020-06-18 05:11] LABS: Calcium 7.3 mg/dL (8.6-10.3); Potassium 3.5 mEq/L (3.5-5.1)
[2020-06-18] MEDS: Pantoprazole 40 MG VIAL IVP SCH ×2 (06:28→17:17)
[2020-06-18] MEDS: allopurinoL 100 MG TABLET PO SCH (08:27)
[2020-06-18] MEDS: BUSPIRONE HCL PO SCH (08:27)
[2020-06-18] MEDS: Levothyroxine Sodium 100 MCG VIAL IVP SCH (08:28)
[2020-06-18] MEDS: Sacubitril/Valsartan 24/26 MG 1 TABLET PO SCH ×2 (08:28→22:01)
[2020-06-18] MEDS: Aspirin 81 MG TAB.CHEW PO SCH (08:28)
[2020-06-18] MEDS: Isosorbide MONOnitrate (24 HR) 30 MG TAB.ER.24H PO SCH (08:28)
[2020-06-18] MEDS: Nystatin POWDER 30 GM BOTTLE TP SCH ×2 (08:29→22:02)
[2020-06-18] MEDS: carvediloL 25 MG TABLET PO SCH ×2 (08:30→17:17)
[2020-06-18] MEDS ORDERED: DilTIAZem CD (24hr) 120 MG CAP.ER.24H PO SCH (09:00)
[2020-06-18] MEDS ORDERED: BUSPIRONE PO SCH (09:00)
[2020-06-18] MEDS: levETIRAcetam 250 MG in 0.9 % Sodium Chloride 100 ML IVPB SCH ×2 (11:20→22:01)
[2020-06-18] MEDS: 0.9 % Sodium Chloride 1,000 ML IVC SCH (11:43)
[2020-06-18] MEDS: Melatonin 3 MG TABLET PO SCH (22:01)
[2020-06-18] MEDS: cefTRIAXone 1,000 MG in Water for inj. (sterile) 10 ML IVP SCH (22:02)
[2020-06-18] MEDS ORDERED: Acetaminophen IV 1,000 MG/100 ML INFUS..BTL IVPB ONE (23:17)
[2020-06-19] MEDS: Pantoprazole 40 MG VIAL IVP SCH ×2 (06:56→17:27)
[2020-06-19] MEDS: 0.9 % Sodium Chloride 1,000 ML IVC SCH (06:57)
[2020-06-19] MEDS: BUSPIRONE HCL PO SCH (08:17)
[2020-06-19] MEDS: allopurinoL 100 MG TABLET PO SCH (08:17)
[2020-06-19] MEDS: Aspirin 81 MG TAB.CHEW PO SCH (08:17)
[2020-06-19] MEDS: carvediloL 25 MG TABLET PO SCH ×2 (08:17→17:27)
[2020-06-19] MEDS: Isosorbide MONOnitrate (24 HR) 30 MG TAB.ER.24H PO SCH (08:17)
[2020-06-19] MEDS: Nystatin POWDER 30 GM BOTTLE TP SCH ×2 (08:18→20:58)
[2020-06-19] MEDS: Sacubitril/Valsartan 24/26 MG 1 TABLET PO SCH ×2 (08:19→20:56)
[2020-06-19] MEDS: Levothyroxine Sodium 100 MCG VIAL IVP SCH (08:19)
[2020-06-19] MEDS: levETIRAcetam 250 MG in 0.9 % Sodium Chloride 100 ML IVPB SCH ×2 (08:21→21:11)
[2020-06-19] MEDS: Insulin LISPRO 300 UNITS/3 ML VIAL SQ SCH ×4 (08:22→21:02)
[2020-06-19 11:46] LABS: Basophils % 0.5 %; Eosinophils % 0.6 %; Hematocrit 24.5 % (35.3-44.9); Hemoglobin 7.8 g/dL (11.5-15.4); Immature Granulocytes % 1.3 % (0-4); Lymphocytes # 0.5 K/mcL (0.6-4.6); Lymphocytes % 7.8 %; Mean Corpuscular HGB Conc 31.8 g/dL (31.6-35.5); Mean Corpuscular Volume 84.8 fL (83.0-100.0); Mean Platelet Volume 9.6 fL (9.4-12.4); Monocytes # 0.4 K/mcL (0.0-1.3); Monocytes % 6.3 %; Neutrophils # 5.3 K/mcL (1.6-8.9); Platelet Count 142 K/mcL (140-400); Red Blood Count 2.89 M/mcL (3.82-4.97); Red Cell Distribution Width 16.3 % (11.5-14.5); Segmented Neutrophils % 83.5 %; White Blood Count 6.3 K/mcL (4.3-11.1)
[2020-06-19 12:08] LABS: Calcium 6.8 mg/dL (8.6-10.3); Magnesium 1.9 mg/dL (1.6-2.6); Potassium 3.5 mEq/L (3.5-5.1)
[2020-06-19 12:20] LABS: Troponin I 3.08 ng/mL (< 0.04)
[2020-06-19] MEDS ORDERED: 0.9 % Sodium Chloride 250 ML ONE (14:12)
[2020-06-19] MEDS: Melatonin 3 MG TABLET PO SCH (20:57)
[2020-06-19] MEDS: cefTRIAXone 1,000 MG in Water for inj. (sterile) 10 ML IVP SCH (20:57)
[2020-06-19] MEDS: Heparin 25,000UNIT/250ML 1/2NS 25,000 UNIT/250 ML IV.SOLN IVC SCH ×2 (21:13)
[2020-06-20] MEDS: Heparin 25,000UNIT/250ML 1/2NS 25,000 UNIT/250 ML IV.SOLN IVC SCH (00:41)
[2020-06-20] MEDS: Pantoprazole 40 MG VIAL IVP SCH (05:11)
[2020-06-20 05:53] LABS: Basophils # 0.1 K/mcL (0.0-0.2); Eosinophils # 0.2 K/mcL (0.0-0.6); Eosinophils % 2.1 %; Hematocrit 31.2 % (35.3-44.9); Immature Granulocytes % 1.9 % (0-4); Lymphocytes # 0.6 K/mcL (0.6-4.6); Lymphocytes % 8.4 %; Mean Corpuscular HGB Conc 32.1 g/dL (31.6-35.5); Mean Corpuscular Hemoglobin 27.5 pg (28.0-33.3); Mean Corpuscular Volume 85.7 fL (83.0-100.0); Mean Platelet Volume 9.8 fL (9.4-12.4); Monocytes # 0.5 K/mcL (0.0-1.3); Neutrophils # 5.8 K/mcL (1.6-8.9); Nucleated Red Blood Cells 0.7 /100 WBC (0); Platelet Count 192 K/mcL (140-400); Red Blood Count 3.64 M/mcL (3.82-4.97); Red Cell Distribution Width 16.5 % (11.5-14.5); Segmented Neutrophils % 79.6 %; White Blood Count 7.2 K/mcL (4.3-11.1)
[2020-06-20 06:09] LABS: Calcium 7.4 mg/dL (8.6-10.3); Phosphorous 4.7 mg/dL (2.7-4.5); Potassium 3.6 mEq/L (3.5-5.1)
[2020-06-20] MEDS: carvediloL 25 MG TABLET PO SCH ×2 (07:53→17:28)
[2020-06-20] MEDS: allopurinoL 100 MG TABLET PO SCH (07:54)
[2020-06-20] MEDS: Aspirin 81 MG TAB.CHEW PO SCH (07:54)
[2020-06-20] MEDS: Isosorbide MONOnitrate (24 HR) 30 MG TAB.ER.24H PO SCH (07:55)
[2020-06-20] MEDS: Levothyroxine Sodium 100 MCG VIAL IVP SCH (07:55)
[2020-06-20] MEDS: Sacubitril/Valsartan 24/26 MG 1 TABLET PO SCH ×2 (07:55→21:29)
[2020-06-20] MEDS: BUSPIRONE HCL PO SCH (07:55)
[2020-06-20] MEDS: levETIRAcetam 250 MG in 0.9 % Sodium Chloride 100 ML IVPB SCH (07:56)
[2020-06-20] MEDS: Nystatin POWDER 30 GM BOTTLE TP SCH ×2 (07:56→21:34)
[2020-06-20] MEDS: Insulin LISPRO 300 UNITS/3 ML VIAL SQ SCH ×4 (07:57→21:31)
[2020-06-20] MEDS: Ondansetron 4 MG/2 ML VIAL IVP PRN (10:17)
[2020-06-20] MEDS: Ranolazine 500 MG TAB.ER.12H PO SCH ×2 (10:17→21:29)
[2020-06-20 10:22] LABS: Basophils % 0.6 %; Eosinophils # 0.1 K/mcL (0.0-0.6); Eosinophils % 2.2 %; Hematocrit 31.1 % (35.3-44.9); Hemoglobin 9.6 g/dL (11.5-15.4); Immature Granulocytes % 1.7 % (0-4); Lymphocytes # 0.6 K/mcL (0.6-4.6); Lymphocytes % 9.8 %; Mean Corpuscular HGB Conc 30.9 g/dL (31.6-35.5); Mean Corpuscular Hemoglobin 26.6 pg (28.0-33.3); Mean Corpuscular Volume 86.1 fL (83.0-100.0); Mean Platelet Volume 9.9 fL (9.4-12.4); Monocytes # 0.5 K/mcL (0.0-1.3); Monocytes % 7.4 %; Nucleated Red Blood Cells 0.6 /100 WBC (0); Platelet Count 191 K/mcL (140-400); Red Blood Count 3.61 M/mcL (3.82-4.97); Red Cell Distribution Width 16.3 % (11.5-14.5); Segmented Neutrophils % 78.3 %; White Blood Count 6.4 K/mcL (4.3-11.1)
[2020-06-20] MEDS ORDERED: Albumin 25% 25gram/100mL 25 GM/100 ML IV.SOLN IVPB ONE (13:49)
[2020-06-20] MEDS: Albumin 25% 25gram/100mL 25 GM/100 ML IV.SOLN IVPB SCH ×2 (14:28→19:24)
[2020-06-20] MEDS: cefTRIAXone 1,000 MG in Water for inj. (sterile) 10 ML IVP SCH (21:27)
[2020-06-20] MEDS: Melatonin 3 MG TABLET PO SCH (21:27)
[2020-06-20] MEDS: Apixaban 5 MG TABLET PO SCH (21:29)
[2020-06-20] MEDS: levETIRAcetam 500 MG/5 ML UDC PO SCH (21:30)
[2020-06-20] MEDS ORDERED: Furosemide 20 MG/2 ML VIAL IVP ONE (22:00)
[2020-06-20] MEDS ORDERED: Acetaminophen 325 MG TABLET PO ONE (22:07)
[2020-06-21 06:20] LABS: Basophils % 0.5 %; Eosinophils # 0.2 K/mcL (0.0-0.6); Hematocrit 28.4 % (35.3-44.9); Hemoglobin 8.9 g/dL (11.5-15.4); Immature Granulocytes % 1.3 % (0-4); Lymphocytes # 0.5 K/mcL (0.6-4.6); Lymphocytes % 9.3 %; Mean Corpuscular HGB Conc 31.3 g/dL (31.6-35.5); Mean Corpuscular Hemoglobin 26.6 pg (28.0-33.3); Mean Platelet Volume 9.8 fL (9.4-12.4); Monocytes # 0.5 K/mcL (0.0-1.3); Monocytes % 8.8 %; Neutrophils # 4.3 K/mcL (1.6-8.9); Nucleated Red Blood Cells 0.4 /100 WBC (0); Platelet Count 171 K/mcL (140-400); Red Blood Count 3.34 M/mcL (3.82-4.97); Red Cell Distribution Width 16.4 % (11.5-14.5); Segmented Neutrophils % 77.1 %; White Blood Count 5.6 K/mcL (4.3-11.1)
[2020-06-21 06:40] LABS: Calcium 7.2 mg/dL (8.6-10.3); Phosphorous 4.8 mg/dL (2.7-4.5); Potassium 3.3 mEq/L (3.5-5.1)
[2020-06-21] MEDS: Insulin LISPRO 300 UNITS/3 ML VIAL SQ SCH ×4 (10:28→21:21)
[2020-06-21] MEDS: Ranolazine 500 MG TAB.ER.12H PO SCH ×2 (10:29→22:11)
[2020-06-21] MEDS: allopurinoL 100 MG TABLET PO SCH (10:29)
[2020-06-21] MEDS: BUSPIRONE HCL PO SCH (10:29)
[2020-06-21] MEDS: Sacubitril/Valsartan 24/26 MG 1 TABLET PO SCH ×2 (10:29→22:11)
[2020-06-21] MEDS: Apixaban 5 MG TABLET PO SCH ×2 (10:29→22:11)
[2020-06-21] MEDS: carvediloL 25 MG TABLET PO SCH ×2 (10:29→18:17)
[2020-06-21] MEDS: Nystatin POWDER 30 GM BOTTLE TP SCH ×2 (10:30→22:12)
[2020-06-21] MEDS: levETIRAcetam 500 MG/5 ML UDC PO SCH ×2 (10:30→22:11)
[2020-06-21] MEDS: Isosorbide MONOnitrate (24 HR) 30 MG TAB.ER.24H PO SCH (10:30)
[2020-06-21] MEDS: Aspirin 81 MG TAB.CHEW PO SCH (10:30)
[2020-06-21] MEDS ORDERED: 0.9 % Sodium Chloride 250 ML IVC PRN (10:53)
[2020-06-21] MEDS ORDERED: 0.9 % Sodium Chloride 1,000 ML PRIME SCH (11:00)
[2020-06-21] MEDS ORDERED: Heparin 1,000 UNITS/500 mL 500 ML ONE (13:54)
[2020-06-21 14:00] LABS: Hepatitis B Surface Antibody < 3.10 mIU/mL
[2020-06-21 14:11] LABS: Hepatitis B Surface Antigen Nonreactive (Nonreactive)
[2020-06-21] MEDS ORDERED: *HR* Heparin 5,000 UNIT/ML VIAL ONE (14:44)
[2020-06-21] MEDS: Acetaminophen 325 MG TABLET PO PRN ×2 (18:16→23:00)
[2020-06-21] MEDS: Melatonin 3 MG TABLET PO SCH (22:11)
[2020-06-21] MEDS: cefTRIAXone 1,000 MG in Water for inj. (sterile) 10 ML IVP SCH (22:12)
[2020-06-22 05:13] LABS: Basophils % 0.5 %; Eosinophils # 0.2 K/mcL (0.0-0.6); Eosinophils % 3.5 %; Hematocrit 33.7 % (35.3-44.9); Hemoglobin 10.3 g/dL (11.5-15.4); Immature Granulocytes % 1.1 % (0-4); Lymphocytes # 0.4 K/mcL (0.6-4.6); Lymphocytes % 8.1 %; Mean Corpuscular HGB Conc 30.6 g/dL (31.6-35.5); Mean Corpuscular Hemoglobin 26.3 pg (28.0-33.3); Mean Platelet Volume 9.6 fL (9.4-12.4); Monocytes # 0.4 K/mcL (0.0-1.3); Monocytes % 7.7 %; Neutrophils # 4.3 K/mcL (1.6-8.9); Platelet Count 194 K/mcL (140-400); Red Blood Count 3.92 M/mcL (3.82-4.97); Red Cell Distribution Width 16.8 % (11.5-14.5); Segmented Neutrophils % 79.1 %; White Blood Count 5.5 K/mcL (4.3-11.1)
[2020-06-22 05:34] LABS: Calcium 7.6 mg/dL (8.6-10.3); Phosphorous 4.9 mg/dL (2.7-4.5); Potassium 3.7 mEq/L (3.5-5.1)
[2020-06-22] MEDS ORDERED: 0.9 % Sodium Chloride 250 ML IVC PRN (07:37)
[2020-06-22] MEDS: Isosorbide MONOnitrate (24 HR) 30 MG TAB.ER.24H PO SCH (09:10)
[2020-06-22] MEDS: Ranolazine 500 MG TAB.ER.12H PO SCH ×2 (09:10→22:26)
[2020-06-22] MEDS: Sacubitril/Valsartan 24/26 MG 1 TABLET PO SCH ×2 (09:10→22:26)
[2020-06-22] MEDS: levETIRAcetam 500 MG/5 ML UDC PO SCH ×2 (09:10→22:26)
[2020-06-22] MEDS: Aspirin 81 MG TAB.CHEW PO SCH (09:10)
[2020-06-22] MEDS: BUSPIRONE HCL PO SCH (09:10)
[2020-06-22] MEDS: carvediloL 25 MG TABLET PO SCH ×2 (09:11→16:50)
[2020-06-22] MEDS: Nystatin POWDER 30 GM BOTTLE TP SCH ×2 (09:11→22:27)
[2020-06-22] MEDS: Apixaban 5 MG TABLET PO SCH ×2 (09:11→22:26)
[2020-06-22] MEDS: allopurinoL 100 MG TABLET PO SCH (09:11)
[2020-06-22] MEDS: Insulin LISPRO 300 UNITS/3 ML VIAL SQ SCH ×4 (09:12→22:26)
[2020-06-22] MEDS ORDERED: *HR* Heparin 10,000 UNIT/10 ML VIAL IV PRN (14:43)
[2020-06-22] MEDS: Melatonin 3 MG TABLET PO SCH (22:26)
[2020-06-22] MEDS ORDERED: Morphine Sulfate 2 MG/ML SYRINGE IVP ONE (23:46)
[2020-06-23] MEDS ORDERED: *HR* LORazepam 2 MG/ML VIAL IVP ONE (02:33)
[2020-06-23] MEDS ORDERED: Bisacodyl 10 MG RECTAL SUPPOSITORY RC PRN (02:34)
[2020-06-23 04:39] LABS: Basophils % 0.5 %; Eosinophils # 0.2 K/mcL (0.0-0.6); Eosinophils % 2.3 %; Hematocrit 32.1 % (35.3-44.9); Immature Granulocytes % 1.1 % (0-4); Lymphocytes # 0.4 K/mcL (0.6-4.6); Lymphocytes % 6.2 %; Mean Corpuscular HGB Conc 31.2 g/dL (31.6-35.5); Mean Corpuscular Hemoglobin 26.5 pg (28.0-33.3); Mean Corpuscular Volume 84.9 fL (83.0-100.0); Monocytes # 0.7 K/mcL (0.0-1.3); Monocytes % 10.5 %; Neutrophils # 5.1 K/mcL (1.6-8.9); Nucleated Red Blood Cells 0.3 /100 WBC (0); Platelet Count 180 K/mcL (140-400); Red Blood Count 3.78 M/mcL (3.82-4.97); Red Cell Distribution Width 16.9 % (11.5-14.5); Segmented Neutrophils % 79.4 %; White Blood Count 6.5 K/mcL (4.3-11.1)
[2020-06-23 04:49] LABS: Calcium 7.9 mg/dL (8.6-10.3); Magnesium 2.1 mg/dL (1.6-2.6); Phosphorous 3.9 mg/dL (2.7-4.5); Potassium 3.9 mEq/L (3.5-5.1)
[2020-06-23] MEDS: Ondansetron 4 MG/2 ML VIAL IVP PRN (08:59)
[2020-06-23] MEDS: BUSPIRONE HCL PO SCH (08:59)
[2020-06-23] MEDS: allopurinoL 100 MG TABLET PO SCH (09:00)
[2020-06-23] MEDS: Nystatin POWDER 30 GM BOTTLE TP SCH ×2 (09:00→22:18)
[2020-06-23] MEDS: Aspirin 81 MG TAB.CHEW PO SCH (09:00)
[2020-06-23] MEDS: Apixaban 5 MG TABLET PO SCH ×2 (09:00→22:16)
[2020-06-23] MEDS: levETIRAcetam 500 MG/5 ML UDC PO SCH ×2 (09:00→22:17)
[2020-06-23] MEDS: Sacubitril/Valsartan 24/26 MG 1 TABLET PO SCH ×2 (09:00→22:16)
[2020-06-23] MEDS: carvediloL 25 MG TABLET PO SCH ×2 (09:00→17:21)
[2020-06-23] MEDS: Ranolazine 500 MG TAB.ER.12H PO SCH ×2 (09:00→22:16)
[2020-06-23] MEDS: Isosorbide MONOnitrate (24 HR) 30 MG TAB.ER.24H PO SCH (09:00)
[2020-06-23] MEDS: Insulin LISPRO 300 UNITS/3 ML VIAL SQ SCH ×4 (09:01→22:17)
[2020-06-23] MEDS ORDERED: 0.9 % Sodium Chloride 250 ML IVC PRN (11:07)
[2020-06-23] MEDS ORDERED: *HR* Heparin 10,000 UNIT/10 ML VIAL ONE (14:17)
[2020-06-23] MEDS: Melatonin 3 MG TABLET PO SCH (22:16)
[2020-06-24 05:46] LABS: Hematocrit 31.1 % (35.3-44.9); Hemoglobin 9.7 g/dL (11.5-15.4); Mean Corpuscular HGB Conc 31.2 g/dL (31.6-35.5); Mean Corpuscular Hemoglobin 27.2 pg (28.0-33.3); Mean Corpuscular Volume 87.4 fL (83.0-100.0); Mean Platelet Volume 9.4 fL (9.4-12.4); Platelet Count 166 K/mcL (140-400); Red Blood Count 3.56 M/mcL (3.82-4.97); Red Cell Distribution Width 17.2 % (11.5-14.5); White Blood Count 5.9 K/mcL (4.3-11.1)
[2020-06-24 07:16] LABS: Calcium 7.9 mg/dL (8.6-10.3); Phosphorous 3.5 mg/dL (2.7-4.5)
[2020-06-24] MEDS: Sacubitril/Valsartan 24/26 MG 1 TABLET PO SCH (07:45)
[2020-06-24] MEDS: Ranolazine 500 MG TAB.ER.12H PO SCH (07:45)
[2020-06-24] MEDS: Isosorbide MONOnitrate (24 HR) 30 MG TAB.ER.24H PO SCH (07:45)
[2020-06-24] MEDS: levETIRAcetam 500 MG/5 ML UDC PO SCH (07:45)
[2020-06-24] MEDS: carvediloL 25 MG TABLET PO SCH ×2 (07:46→18:03)
[2020-06-24] MEDS: BUSPIRONE HCL PO SCH (07:46)
[2020-06-24] MEDS: Apixaban 5 MG TABLET PO SCH (07:46)
[2020-06-24] MEDS: allopurinoL 100 MG TABLET PO SCH (07:46)
[2020-06-24] MEDS: Aspirin 81 MG TAB.CHEW PO SCH (07:46)
[2020-06-24] MEDS: Insulin LISPRO 300 UNITS/3 ML VIAL SQ SCH ×3 (07:48→18:03)
[2020-06-24] MEDS: Nystatin POWDER 30 GM BOTTLE TP SCH (07:49)
[2020-06-24] MEDS: Ondansetron 4 MG/2 ML VIAL IVP PRN (12:04)
[2020-06-24 16:44] VITALS: BP 119/76
== END 2020-06-24 20:00 | DRG 393 ==
LOC: EMEROOARM 14:23 → 3ANU 14:23 → SUATTDRO 06-17 18:55
PROVIDERS: ADMIT Student in an Organized Health Care Education/Training Program; ATTEND Internal Medicine